=== PATIENT | male | born 1935 | race African-American/Black ===

== ENCOUNTER 2016-09-30 14:27 | Inpatient (IN) | payer MEDICARE, BC ==
[~2016-09-30] VITALS: Ht 181.6 cm; Wt 71.2 kg
[~2016-09-30 14:27] MED LIST: AMLO10TA4 PO; DULO30CA43 PO; LEVE500T56 PO; LISI1TAB5 PO; METF10002 PO; SITA100T PO; TAMS0.4C97 PO
[2016-09-30] MEDS ORDERED: FENTANYL PF 100 MCG/2 ML VIAL. IV ONE (15:30)
[2016-09-30] MEDS ORDERED: ONDANSETRON PF 4 MG/2 ML VIAL. IV ONE (15:30)
[2016-09-30] MEDS ORDERED: CEFTRIAXONE 1GM IVPB FOR OMNI 50 ML IV ONE (15:30)
[2016-09-30] MEDS ORDERED: IV NORMAL SALINE 1000ML BAG 1,000 ML IV ONE (15:30)
[2016-09-30 15:36] LABS: BASO % 1 % (0-3); EOS % 1 % (0-3); HEMATOCRIT 42.2 % (39.0-53.0); HEMOGLOBIN 13.5 g/dL (13.0-17.5); LYMPH # 2.8 x10^3/uL (1.0-4.8); LYMPH % 53 % (24-48); MEAN CORPUSCULAR HEMOGLOBIN 27 pg (25-35); MEAN CORPUSCULAR HGB CONC 32 g/dL (31-37); MEAN CORPUSCULAR VOLUME 83 fL (79-100); MONO % 8 % (0-9); NEUT % 38 % (31-73); PLATELET COUNT 274 x10^3/uL (140-400); RED BLOOD COUNT 5.07 x10^6/uL (4.30-5.70); RED CELL DISTRIBUTION WIDTH 15.4 % (11.5-14.5); WHITE BLOOD COUNT 5.3 x10^3/uL (4.0-11.0)
[2016-09-30 15:55] LABS: CALCIUM 9.3 mg/dL (8.5-10.1); CREATININE 1.2 mg/dL (0.7-1.3); GFR 70.1; POTASSIUM 4.2 mmol/L (3.5-5.1)
[2016-09-30 16:00] LABS: ALBUMIN 3.1 g/dL (3.4-5.0); ALBUMIN/GLOBULIN RATIO 0.6 (1.0-1.7); TOTAL BILIRUBIN 0.5 mg/dL (0.2-1.0); TOTAL PROTEIN 8.5 g/dL (6.4-8.2)
[2016-09-30 16:31] LABS: BILIRUBIN,URINE NEGATIVE (NEG); GLUCOSE,URINE 500 mg/dL (NEG); NITRITE,URINE NEGATIVE (NEG); PROTEIN,URINE NEGATIVE (NEG-TRACE); UROBILINOGEN,URINE 0.2 mg/dL (0.2 mg/dL)
--- NOTE | 2016-09-30 16:34 | RAD ---
CT of the abdomen and pelvis without contrast, 09/30/2016: History: Right flank pain Noncontrast scans were obtained through the urinary tract utilizing the renal stone protocol. No intrarenal calculi are identified. The renal collecting systems and ureters are not dilated. No ureteral calculus is seen. The partially filled urinary bladder is unremarkable. There is mild dependent atelectasis and/or scarring in the lung bases. The unopacified liver is unremarkable. No gallbladder abnormality is seen. The pancreas shows no abnormality. The spleen is of normal size. There is moderate calcific plaquing of the abdominal aorta and its branches without evidence of aneurysm. The prostate gland is enlarged measuring 5.8 cm in width. There are scattered colonic diverticula. No paracolonic inflammatory process is seen. The bowel loops are not dilated. A blind-ending tubular structure along the posterior aspect of the cecum and ascending colon appears to represent a dilated fluid-filled appendix. It measures 14 mm in width. On an old study from 01/07/2006 it measured 7 mm. No definite adjacent inflammation is seen. No free fluid or free air is evident in the abdomen or pelvis. The left inguinal ring is mildly dilated containing fat and the spermatic cord. No bowel herniation is evident. IMPRESSION: 1. No urinary tract calculi are identified. 2. Colonic diverticulosis. 3. Prostatic enlargement. 4. The appendix is mildly dilated and fluid-filled raising the possibility of early appendicitis. PQRS Compliance Statement: One or more of the following individualized dose reduction techniques were utilized for this examination: 1. Automated exposure control 2. Adjustment of the mA and/or kV according to patient size 3. Use of iterative reconstruction technique
[2016-09-30 16:46] LABS: BACTERIA,URINE FEW /HPF (0-FEW); RBC,URINE 0 /HPF (0-2); SQUAMOUS EPITHELIAL CELL,UR FEW /LPF; WBC,URINE OCC /HPF (0-4)
[2016-09-30] MEDS ORDERED: CIPR500T94 PO (17:02)
--- NOTE | 2016-09-30 17:02 | PHYS DOC ---
Past Medical History Past Medical History: Diabetes-Type II, Hypertension, Seizure Additional Past Medical Histor: stroke?, legally blind Past Surgical History: Other Additional Past Surgical Histo: bladder sx Alcohol Use: None Drug Use: None Adult General Chief Complaint Chief Complaint: ABDOMINAL PAIN HPI HPI 81-year-old male presents with a 2 day history of urinary frequency and right lower quadrant pain. He denies any high fever chills or sweats. He has not had any gross hematuria. states that he is up and down throughout the night urinating. Patient states his urine stream is not strong. [] Review of Systems Review of Systems Constitutional: Denies fever or chills [] Eyes: Denies change in visual acuity, redness, or eye pain [] HENT: Denies nasal congestion or sore throat [] Respiratory: Denies cough or shortness of breath [] Cardiovascular: No additional information not addressed in HPI [] GI: Denies abdominal pain, nausea, vomiting, bloody stools or diarrhea [] : Per history of present illness [] Musculoskeletal: Denies back pain or joint pain [] Integument: Denies rash or skin lesions [] Neurologic: Denies headache, focal weakness or sensory changes [] Endocrine: Denies polyuria or polydipsia [] Current Medications Current Medications Current Medications Medications (Trade) Dose Ordered Sig/Sofya Start Time Stop Time Status Last Admin Dose Admin Ceftriaxone Sodium 50 ml @ 100 mls/hr 1X ONCE 09/30/16 15:30 09/30/16 15:59 DC 09/30/16 16:28 100 MLS/HR Fentanyl Citrate (Fentanyl 2ml Vial) 50 mcg 1X ONCE 09/30/16 15:30 09/30/16 15:34 DC 09/30/16 15:47 50 MCG Ondansetron HCl (Zofran) 4 mg 1X ONCE 09/30/16 15:30 09/30/16 15:34 DC 09/30/16 15:45 4 MG Sodium Chloride (Iv Sodium Chloride 0.9% 1000ml Bag) 1,000 ml @ 1,000 mls/hr 1X ONCE 09/30/16 15:30 09/30/16 16:29 DC 09/30/16 15:43 1,000 MLS/HR Allergies Allergies Allergies Coded Allergies Type Severity Reaction Last Updated Verified No Known Drug Allergies 02/12/14 No Physical Exam Physical Exam Constitutional: Well developed, well nourished, no acute distress, non-toxic appearance. [] HENT: Normocephalic, atraumatic, bilateral external ears normal, oropharynx moist, no oral exudates, nose normal. [] Eyes: PERRLA, EOMI, conjunctiva normal, no discharge. [] Neck: Normal range of motion, no tenderness, supple, no stridor. [] Cardiovascular:Heart rate regular rhythm, no murmur [] Lungs & Thorax: Bilateral breath sounds clear to auscultation [] Abdomen: Bowel sounds normal, soft, no tenderness, no masses, no pulsatile masses. [] Skin: Warm, dry, no erythema, no rash. [] Back: No tenderness, no CVA tenderness. [] Extremities: No tenderness, no cyanosis, no clubbing, ROM intact, no edema. [] Neurologic: Alert and oriented X 3, normal motor function, normal sensory function, no focal deficits noted. [] Psychologic: Affect normal, judgement normal, mood normal. [] Current Patient Data Vital Signs Vital Signs Date Time Temp Pulse Resp B/P Pulse Ox O2 Delivery O2 Flow Rate FiO2 09/30/16 15:47 16 09/30/16 14:39 98.5 68 135/66 100 98.5 Lab Values Laboratory Tests Test 09/30/16 14:47 09/30/16 15:35 09/30/16 16:10 White Blood Count 5.3x10^3/uL (4.0-11.0) Red Blood Count 5.07x10^6/uL (4.30-5.70) Hemoglobin 13.5g/dL (13.0-17.5) Hematocrit 42.2% (39.0-53.0) Mean Corpuscular Volume 83fL (79-100) Mean Corpuscular Hemoglobin 27pg (25-35) Mean Corpuscular Hemoglobin Concent 32g/dL (31-37) Red Cell Distribution Width 15.4% (11.5-14.5) H Platelet Count 274x10^3/uL (140-400) Neutrophils (%) (Auto) 38% (31-73) Lymphocytes (%) (Auto) 53% (24-48) H Monocytes (%) (Auto) 8% (0-9) Eosinophils (%) (Auto) 1% (0-3) Basophils (%) (Auto) 1% (0-3) Neutrophils # (Auto) 2.0x10^3uL (1.8-7.7) Lymphocytes # (Auto) 2.8x10^3/uL (1.0-4.8) Monocytes # (Auto) 0.4x10^3/uL (0.0-1.1) Eosinophils # (Auto) 0.0x10^3/uL (0.0-0.7) Basophils # (Auto) 0.0x10^3/uL (0.0-0.2) Sodium Level 138mmol/L (136-145) Potassium Level 4.2mmol/L (3.5-5.1) Chloride Level 102mmol/L (98-107) Carbon Dioxide Level 28mmol/L (21-32) Anion Gap 8 (6-14) Blood Urea Nitrogen 19mg/dL (8-26) Creatinine 1.2mg/dL (0.7-1.3) Estimated GFR (Cockcroft-Gault) 70.1 BUN/Creatinine Ratio 16 (6-20) Glucose Level 188mg/dL (70-99) H Calcium Level 9.3mg/dL (8.5-10.1) Total Bilirubin 0.5mg/dL (0.2-1.0) Aspartate Amino Transferase (AST) 16U/L (15-37) Alanine Aminotransferase (ALT) 31U/L (16-63) Alkaline Phosphatase 79U/L (46-116) Total Protein 8.5g/dL (6.4-8.2) H Albumin 3.1g/dL (3.4-5.0) L Albumin/Globulin Ratio 0.6 (1.0-1.7) L Lipase 115U/L (73-393) Lactic Acid Level 1.7mmol/L (0.4-2.0) Urine Collection Type Unknown Urine Color Yellow Urine Clarity Clear Urine pH 6.0 Urine Specific [place] 1.020 Urine Protein Negativemg/dL (NEG-TRACE) Urine Glucose (UA) 500mg/dL (NEG) Urine Ketones (Stick) Negativemg/dL (NEG) Urine Blood Negative (NEG) Urine Nitrite Negative (NEG) Urine Bilirubin Negative (NEG) Urine Urobilinogen Dipstick 0.2mg/dL (0.2 mg/dL) Urine Leukocyte Esterase Negative (NEG) Urine RBC 0/HPF (0-2) Urine WBC Occ/HPF (0-4) Urine Squamous Epithelial Cells Few/LPF Urine Bacteria Few/HPF (0-FEW) Urine Mucus Mod/LPF Laboratory Tests 09/30/16 14:47 Laboratory Tests 09/30/16 14:47 EKG EKG [] Radiology/Procedures Radiology/Procedures [] Impressions: PROCEDURE: ABDOMEN PELVIS WO CONTRAST PQRS Compliance Statement: One or more of the following individualized dose reduction techniques were utilized for this examination: 1. Automated exposure control 2. Adjustment of the mA and/or kV according to patient size 3. Use of iterative reconstruction technique CT of the abdomen and pelvis without contrast, 09/30/2016: History: Left-sided pain, nausea and vomiting Multidetector CT imaging was performed without oral or IV contrast as requested. The gallbladder is surgically absent. The unopacified liver shows no abnormality. No pancreatic abnormality is detected. The spleen is of normal size. The kidneys show no evidence of obstruction or mass. No urinary tract calculi are identified. The partially filled urinary bladder is unremarkable. There is mild aortoiliac calcific plaquing. No abdominal or pelvic adenopathy is seen. The uterus is surgically absent. The bowel loops are not dilated. There are sutures along the base of the cecum suggesting a previous appendectomy. No free fluid or free air is evident in the abdomen or pelvis. IMPRESSION: No acute abdominal or pelvic abnormality is detected. Course & Med Decision Making Course & Med Decision Making Pertinent Labs and Imaging studies reviewed. (See chart for details) [] Dragon Disclaimer Dragon Disclaimer This electronic medical record was generated, in whole or in part, using a voice recognition dictation system. Departure Departure Impression: Primary Impression: Abdominal pain Additional Impression: Urinary frequency Disposition: 01 HOME, SELF-CARE Condition: STABLE Referrals: MARIA DEL CARMEN NICHOLAS (PCP) Patient Instructions: Urinary Frequency Additional Instructions: Need to follow with your family doctor this week for recheck. Return to the emergency department with any new or concerning symptoms Scripts Ciprofloxacin Hcl (Cipro)500 Mg Tablet1 Tab PO BID PRN UTI #20 TAB Prov:MALCOLM SMITH DO 09/30/16 Problem Qualifiers Primary Impression: Abdominal pain Abdominal location: right lower quadrant Qualified Code: R10.31 - Right lower quadrant pain MALCOLM SMITH DO Sep 30, 2016 17:02
[2016-09-30] MEDS ORDERED: TAMS0.4C97 PO (17:07)
[2016-09-30] MEDS: IV NORMAL SALINE 1000ML BAG 1,000 ML IV SCH (17:19)
[2016-09-30] MEDS ORDERED: FENTANYL PF 100 MCG/2 ML VIAL. IV PRN (17:30)
[2016-09-30] MEDS ORDERED: ACETAMINOPHEN 325 MG TABLET. PO PRN (17:30)
[2016-09-30] MEDS ORDERED: ONDANSETRON PF 4 MG/2 ML VIAL. IV PRN (17:30)
[2016-09-30 23:54] VITALS: BP 169/95
[2016-10-01] VITALS (8 sets, daily range): BP systolic 119–170; BP diastolic 63–89
[2016-10-01] MEDS: LEVETIRACETAM 500 MG TABLET PO SCH ×3 (00:07→20:06)
[2016-10-01] MEDS ORDERED: DEXTROSE 50% 25 GM / 50ML DISP.SYRIN. IV PRN (00:30)
[2016-10-01] MEDS ORDERED: INFLUENZA VAX SCREEN BY RX. MC ONE (01:15)
[2016-10-01 04:05] LABS: BASO % 0 % (0-3); EOS % 1 % (0-3); HEMATOCRIT 40.3 % (39.0-53.0); LYMPH # 5.4 x10^3/uL (1.0-4.8); LYMPH % 56 % (24-48); MEAN CORPUSCULAR HEMOGLOBIN 27 pg (25-35); MEAN CORPUSCULAR HGB CONC 32 g/dL (31-37); MEAN CORPUSCULAR VOLUME 83 fL (79-100); MONO % 8 % (0-9); NEUT % 35 % (31-73); PLATELET COUNT 270 x10^3/uL (140-400); RED BLOOD COUNT 4.85 x10^6/uL (4.30-5.70); RED CELL DISTRIBUTION WIDTH 15.3 % (11.5-14.5); WHITE BLOOD COUNT 9.6 x10^3/uL (4.0-11.0)
[2016-10-01 04:22] LABS: CALCIUM 9.1 mg/dL (8.5-10.1); CREATININE 0.9 mg/dL (0.7-1.3); GFR 97.8
[2016-10-01] MEDS: IV NORMAL SALINE 1000ML BAG 1,000 ML IV SCH ×2 (06:29→09:19)
[2016-10-01] MEDS: INSULIN ASPART 300 UNITS/3 ML INSULN.PEN SQ SCH ×3 (08:00→17:00)
[2016-10-01] MEDS: TAMSULOSIN 0.4 MG CAP.ER.24H. PO SCH (08:02)
[2016-10-01] MEDS: DULOXETINE HCL 30 MG CAPSULE.DR. PO SCH ×2 (08:02→20:06)
[2016-10-01] MEDS: LISINOPRIL 20 MG TABLET PO SCH (08:02)
[2016-10-01] MEDS: AMLODIPINE BESYLATE 10 MG TABLET PO SCH (08:02)
--- NOTE | 2016-10-01 08:28 | PDOC2 ---
SHERITA CHAUDHARI [employer] 10/01/16 0828: CONSULT Date of Consult Date of Consult DATE: 10/01/16 TIME: 08:23 Reason for Consult Reason for Consult: appendicitis Referring Physician Referring Physician: ER Identification/Chief Complaint Chief Complaint abdominal pain Source Source: Chart review, Patient History of Present Illness Reason for Visit: Reports 3 weeks trouble with RLQ pain. Edilson the pain was worse, he had increased urinary frequency. Currently no pain, no nausea or emesis. Pain was not aggravated by movement Past Medical History Cardiovascular: HTN, Syncope Pulmonary: No pertinent hx CENTRAL NERVOUS SYSTEM: CVA GI: No pertinent hx Heme/Onc: No pertinent hx Hepatobiliary: No pertinent hx Psych: No pertinent hx Musculoskeletal: Osteoarthritis Rheumatologic: No pertinent hx Infectious disease: No pertinent hx Renal/: Benign prostatic enlarg. Endocrine: Diabetes Past Surgical History Past Surgical History: Other (no abdominal surgeries ) Family History Family History: No Significant Social History No ALCOHOL: rare Drugs: None Lives: with Family Current Problem List Problem List Problems Medical Problems: (1) Abdominal pain Status: Acute (2) Urinary frequency Status: Acute Current Medications Current Medications Current Medications Ceftriaxone Sodium 50 ml @ 100 mls/hr 1X ONCE IV Last administered on 16:28; Start 09/30/16 at 15:30; Stop 09/30/16 at 15:59; Status DC Sodium Chloride (Iv Sodium Chloride 0.9% 1000ml Bag) 1,000 ml @ 1,000 mls/hr 1X ONCE IV Last administered on 09/30/16 15:43; Start 09/30/16 at 15:30; Stop 09/30/16 at 16:29; Status DC Fentanyl Citrate (Fentanyl 2ml Vial) 50 mcg 1X ONCE IV Last administered on 15:47; Start 09/30/16 at 15:30; Stop 09/30/16 at 15:34; Status DC Ondansetron HCl (Zofran) 4 mg 1X ONCE IV Last administered on 09/30/16 15:45 ; Start 09/30/16 at 15:30; Stop 09/30/16 at 15:34; Status DC Ondansetron HCl (Zofran) 4 mg PRN Q8HRS PRN IV NAUSEA/VOMITING; Start 09/30/16 at 17:30; Stop 10/01/16 at 17:29 Fentanyl Citrate 50 mcg 50 mcg PRN Q1HR PRN IV PAIN; Start 09/30/16 at 17:30; Stop 10/01/16 at 17:29 Sodium Chloride (Iv Sodium Chloride 0.9% 1000ml Bag) 1,000 ml @ 125 mls/hr Q8H IV Last administered on 10/01/16 06:29; Start 09/30/16 at 17:19; Stop at 17:18 Acetaminophen (Tylenol) 650 mg PRN Q4HRS PRN PO FEVER; Start 09/30/16 at 17:30 ; Stop 10/01/16 at 17:29 Amlodipine Besylate (Norvasc) 10 mg DAILY PO Last administered on 10/01/16 08: 02; Start 10/01/16 at 09:00 Duloxetine HCl (Cymbalta) 30 mg BID PO Last administered on 10/01/16 08:02; Start 10/01/16 at 09:00 Levetiracetam (Keppra) 500 mg BID PO Last administered on 10/01/16 08:02; Start 10/01/16 at 00:30 Tamsulosin HCl (Flomax) 0.4 mg DAILY PO Last administered on 10/01/16 08:02; Start 10/01/16 at 09:00 Lisinopril (Prinivil) 20 mg DAILY PO Last administered on 10/01/16 08:02; Start 10/01/16 at 09:00 Insulin Aspart (Novolog) 0-5 UNITS TIDWMEALS SQ ; Start 10/01/16 at 08:00 Dextrose 12.5 gm PRN Q15MIN PRN IV SEE COMMENTS; Start 10/01/16 at 00:30 Info (Do NOT chart on this placeholder) 1 each 1X ONCE MC ; Start 10/01/16 at 01:15; Stop 10/01/16 at 01:16; Status UNV Pneumococcal Polyvalent Vaccine (Do NOT chart on this placeholder) 1 each 1X ONCE MC ; Start 10/01/16 at 09:00; Stop 10/01/16 at 09:01; Status UNV Influenza Virus Vaccine Quadrival (Fluarix Quad [id number] Syringe) 0.5 ml ONCE ONCE VAX IM ; Start 10/01/16 at 09:00; Stop 10/01/16 at 09:01 Pneumococcal Polyvalent Vaccine (Pneumovax 23) 0.5 ml ONCE ONCE VAX IM ; Start 10/01/16 at 09:00; Stop 10/01/16 at 09:01 Active Scripts Active Flomax (Tamsulosin Hcl) 0.4 Mg Cap.er.24h 1 Cap PO DAILY Cipro (Ciprofloxacin Hcl) 500 Mg Tablet 1 Tab PO BID PRN Reported Keppra (Levetiracetam) 500 Mg Tablet 1 Tab PO BID Duloxetine Hcl 30 Mg Capsule.dr 30 Mg PO BID Metformin Hcl 1,000 Mg Tablet 1 Tab PO BID Lisinopril-Hctz 20-12.5 Mg Tab (Lisinopril/Hydrochlorothiazide) 1 Each Tablet 1 Tab PO DAILY Norvasc (Amlodipine Besylate) 10 Mg Tablet 10 Mg PO DAILY Flomax (Tamsulosin Hcl) 0.4 Mg Cap.er.24h 1 Cap PO DAILY Januvia (Sitagliptin Phosphate) 100 Mg Tablet 1 Tab PO DAILY Allergies Allergies: Coded Allergies: No Known Drug Allergies (Unverified , 02/12/14) ROS General: No: Chills, Other (fevers) PSYCHOLOGICAL ROS: No: Anxiety, Depression Eyes: No Blurry vision, No Double vision HEENT: No: Heacaches, Sore Throat Hematological and Lymphatic: No: Bleeding Problems, Blood Clots Respiratory: No: Cough, Shortness of breath Cardiovascular: No Chest Pain, No Palpitations Gastrointestinal: Yes Other (see hpi) Genitourinary: YES Frequency, No Hematuria Musculoskeletal: No Joint Pain, No Muscle Pain Skin: No Pruritus, No Rash Physical Exam General: Alert, Oriented X3, Cooperative, No acute distress HEENT: Atraumatic, Mucous membr. moist/pink Lungs: Clear to auscultation, Normal air movement Heart: Regular rate, Normal S1, Normal S2, No murmurs Abdomen: Normal bowel sounds, Soft, No tenderness, No hepatosplenomegaly Extremities: No clubbing, No cyanosis Skin: No rashes, No breakdown Neuro: Normal speech, Sensation intact Psych/Mental Status: Mental status NL, Mood NL MUSCULOSKELETAL: No deformity, No swelling Vitals VITALS Vital Signs Date Time Temp Pulse Resp B/P Pulse Ox O2 Delivery O2 Flow Rate FiO2 10/01/16 08:02 66 134/78 10/01/16 07:00 98.6 18 99 Room Air 98.6 Labs Labs Laboratory Tests Test 09/30/16 14:47 09/30/16 15:35 09/30/16 16:10 10/01/16 03:40 White Blood Count 5.3x10^3/uL (4.0-11.0) 9.6x10^3/uL (4.0-11.0) Red Blood Count 5.07x10^6/uL (4.30-5.70) 4.85x10^6/uL (4.30-5.70) Hemoglobin 13.5g/dL (13.0-17.5) 13.0g/dL (13.0-17.5) Hematocrit 42.2% (39.0-53.0) 40.3% (39.0-53.0) Mean Corpuscular Volume 83fL (79-100) 83fL (79-100) Mean Corpuscular Hemoglobin 27pg (25-35) 27pg (25-35) Mean Corpuscular Hemoglobin Concent 32g/dL (31-37) 32g/dL (31-37) Red Cell Distribution Width 15.4% (11.5-14.5) 15.3% (11.5-14.5) Platelet Count 274x10^3/uL (140-400) 270x10^3/uL (140-400) Neutrophils (%) (Auto) 38% (31-73) 35% (31-73) Lymphocytes (%) (Auto) 53% (24-48) 56% (24-48) Monocytes (%) (Auto) 8% (0-9) 8% (0-9) Eosinophils (%) (Auto) 1% (0-3) 1% (0-3) Basophils (%) (Auto) 1% (0-3) 0% (0-3) Neutrophils # (Auto) 2.0x10^3uL (1.8-7.7) 3.3x10^3uL (1.8-7.7) Lymphocytes # (Auto) 2.8x10^3/uL (1.0-4.8) 5.4x10^3/uL (1.0-4.8) Monocytes # (Auto) 0.4x10^3/uL (0.0-1.1) 0.8x10^3/uL (0.0-1.1) Eosinophils # (Auto) 0.0x10^3/uL (0.0-0.7) 0.0x10^3/uL (0.0-0.7) Basophils # (Auto) 0.0x10^3/uL (0.0-0.2) 0.0x10^3/uL (0.0-0.2) Sodium Level 138mmol/L (136-145) 139mmol/L (136-145) Potassium Level 4.2mmol/L (3.5-5.1) 4.0mmol/L (3.5-5.1) Chloride Level 102mmol/L (98-107) 104mmol/L (98-107) Carbon Dioxide Level 28mmol/L (21-32) 26mmol/L (21-32) Anion Gap 8 (6-14) 9 (6-14) Blood Urea Nitrogen 19mg/dL (8-26) 12mg/dL (8-26) Creatinine 1.2mg/dL (0.7-1.3) 0.9mg/dL (0.7-1.3) Estimated GFR (Cockcroft-Gault) 70.1 97.8 BUN/Creatinine Ratio 16 (6-20) Glucose Level 188mg/dL (70-99) 106mg/dL (70-99) Calcium Level 9.3mg/dL (8.5-10.1) 9.1mg/dL (8.5-10.1) Total Bilirubin 0.5mg/dL (0.2-1.0) Aspartate Amino Transf (AST/SGOT) 16U/L (15-37) Alanine Aminotransferase (ALT/SGPT) 31U/L (16-63) Alkaline Phosphatase 79U/L (46-116) Total Protein 8.5g/dL (6.4-8.2) Albumin 3.1g/dL (3.4-5.0) Albumin/Globulin Ratio 0.6 (1.0-1.7) Lipase 115U/L (73-393) Lactic Acid Level 1.7mmol/L (0.4-2.0) Urine Collection Type Unknown Urine Color Yellow Urine Clarity Clear Urine pH 6.0 Urine Specific [place] 1.020 Urine Protein Negativemg/dL (NEG-TRACE) Urine Glucose (UA) 500mg/dL (NEG) Urine Ketones (Stick) Negativemg/dL (NEG) Urine Blood Negative (NEG) Urine Nitrite Negative (NEG) Urine Bilirubin Negative (NEG) Urine Urobilinogen Dipstick 0.2mg/dL (0.2 mg/dL) Urine Leukocyte Esterase Negative (NEG) Urine RBC 0/HPF (0-2) Urine WBC Occ/HPF (0-4) Urine Squamous Epithelial Cells Few/LPF Urine Bacteria Few/HPF (0-FEW) Urine Mucus Mod/LPF Laboratory Tests Test 09/30/16 14:47 09/30/16 15:35 09/30/16 16:10 10/01/16 03:40 White Blood Count 5.3x10^3/uL (4.0-11.0) 9.6x10^3/uL (4.0-11.0) Red Blood Count 5.07x10^6/uL (4.30-5.70) 4.85x10^6/uL (4.30-5.70) Hemoglobin 13.5g/dL (13.0-17.5) 13.0g/dL (13.0-17.5) Hematocrit 42.2% (39.0-53.0) 40.3% (39.0-53.0) Mean Corpuscular Volume 83fL (79-100) 83fL (79-100) Mean Corpuscular Hemoglobin 27pg (25-35) 27pg (25-35) Mean Corpuscular Hemoglobin Concent 32g/dL (31-37) 32g/dL (31-37) Red Cell Distribution Width 15.4% (11.5-14.5) 15.3% (11.5-14.5) Platelet Count 274x10^3/uL (140-400) 270x10^3/uL (140-400) Neutrophils (%) (Auto) 38% (31-73) 35% (31-73) Lymphocytes (%) (Auto) 53% (24-48) 56% (24-48) Monocytes (%) (Auto) 8% (0-9) 8% (0-9) Eosinophils (%) (Auto) 1% (0-3) 1% (0-3) Basophils (%) (Auto) 1% (0-3) 0% (0-3) Neutrophils # (Auto) 2.0x10^3uL (1.8-7.7) 3.3x10^3uL (1.8-7.7) Lymphocytes # (Auto) 2.8x10^3/uL (1.0-4.8) 5.4x10^3/uL (1.0-4.8) Monocytes # (Auto) 0.4x10^3/uL (0.0-1.1) 0.8x10^3/uL (0.0-1.1) Eosinophils # (Auto) 0.0x10^3/uL (0.0-0.7) 0.0x10^3/uL (0.0-0.7) Basophils # (Auto) 0.0x10^3/uL (0.0-0.2) 0.0x10^3/uL (0.0-0.2) Sodium Level 138mmol/L (136-145) 139mmol/L (136-145) Potassium Level 4.2mmol/L (3.5-5.1) 4.0mmol/L (3.5-5.1) Chloride Level 102mmol/L (98-107) 104mmol/L (98-107) Carbon Dioxide Level 28mmol/L (21-32) 26mmol/L (21-32) Anion Gap 8 (6-14) 9 (6-14) Blood Urea Nitrogen 19mg/dL (8-26) 12mg/dL (8-26) Creatinine 1.2mg/dL (0.7-1.3) 0.9mg/dL (0.7-1.3) Estimated GFR (Cockcroft-Gault) 70.1 97.8 BUN/Creatinine Ratio 16 (6-20) Glucose Level 188mg/dL (70-99) 106mg/dL (70-99) Calcium Level 9.3mg/dL (8.5-10.1) 9.1mg/dL (8.5-10.1) Total Bilirubin 0.5mg/dL (0.2-1.0) Aspartate Amino Transf (AST/SGOT) 16U/L (15-37) Alanine Aminotransferase (ALT/SGPT) 31U/L (16-63) Alkaline Phosphatase 79U/L (46-116) Total Protein 8.5g/dL (6.4-8.2) Albumin 3.1g/dL (3.4-5.0) Albumin/Globulin Ratio 0.6 (1.0-1.7) Lipase 115U/L (73-393) Lactic Acid Level 1.7mmol/L (0.4-2.0) Urine Collection Type Unknown Urine Color Yellow Urine Clarity Clear Urine pH 6.0 Urine Specific [place] 1.020 Urine Protein Negativemg/dL (NEG-TRACE) Urine Glucose (UA) 500mg/dL (NEG) Urine Ketones (Stick) Negativemg/dL (NEG) Urine Blood Negative (NEG) Urine Nitrite Negative (NEG) Urine Bilirubin Negative (NEG) Urine Urobilinogen Dipstick 0.2mg/dL (0.2 mg/dL) Urine Leukocyte Esterase Negative (NEG) Urine RBC 0/HPF (0-2) Urine WBC Occ/HPF (0-4) Urine Squamous Epithelial Cells Few/LPF Urine Bacteria Few/HPF (0-FEW) Urine Mucus Mod/LPF Assessment/Plan Assessment/Plan abdominal pain, urinary frequency wbc normal, afebrile, now without pain DM, HTN possible early appendicitis on CT will continue observation, NPO will review with JD Laurent MD 10/01/16 1340: CONSULT Allergies Allergies: Coded Allergies: No Known Drug Allergies (Unverified , 02/12/14) Assessment/Plan Assessment/Plan Pt seen and examined. Agree with Joelle Chaudhari's note D/w pt and pt's Pt with mild TTP RLQ given persistence of symptoms, will proceed with lap exp and appendectomy Pt and pt's elect for surgery R?B/A d/w pt and pt's Thanks for consult! SHERITA CHAUDHARI [employer] [employer] Oct 01, 2016 08:28 JD HESTER MD Oct 01, 2016 13:40
[2016-10-01] MEDS ORDERED: ONDANSETRON PF 4 MG/2 ML VIAL. IV PRN ×2 (08:44→15:30)
[2016-10-01] MEDS ORDERED: FLU VACC QUAD 2016-17 (36MOS+)/PF 0.5 ML SYRINGE. VAX IM ONE (09:00)
[2016-10-01] MEDS ORDERED: PNEUMOCOCCAL VAX SCREEN BY RX. MC ONE (09:00)
[2016-10-01] MEDS ORDERED: PNEUMOC CONJ VACC 23-VALENT 0.5 ML VIAL. VAX IM ONE (09:00)
--- NOTE | 2016-10-01 10:04 | HP ---
ADMIT DATE: CHIEF COMPLAINT: Right lower quadrant abdominal pain. 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 Initially had thought that this had something to do with his bladder because recently he has noted increased nocturia. However, in the Emergency Room, CT was consistent with appendicitis by CT, showing a dilated fluid-filled appendix. The patient is therefore admitted for surgical evaluation. PAST MEDICAL HISTORY: Hypertension, diabetes, history of syncope with workup by Cardiology in 03/2016 without any significant findings and seizures. FAMILY HISTORY: No known heart history. 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 No other toxic habits. ALLERGIES: No known drug allergies. MEDICATIONS: MAR reconciled with home medications. REVIEW OF SYSTEMS: Essentially positive as per HPI. PHYSICAL EXAMINATION: VITAL SIGNS: From today show a blood pressure of 140/71, heart rate of 60, respiratory rate at 16. He is afebrile. GENERAL: This is a well-nourished, well developed 81-year-old -[place] gentleman appearing younger than his stated age, alert and oriented, in no acute distress. HEENT: Shows no scleral icterus. NECK: Supple. LUNGS: Clear bilaterally. HEART: Regular rate and rhythm. ABDOMEN: Has positive bowel sounds. No tenderness to palpation noted throughout. No rebound. EXTREMITIES: Show no edema. SKIN: Warm, soft and dry. LABORATORY DATA: CBC with a WBC of 5.3, hemoglobin 13.5, platelets of 274. Chemistries with a BUN and creatinine of 19 and 1.2. Electrolytes within normal. Albumin at 3.1, normal LFTs. CT of the abdomen shows fluid-filled appendix. There is also a left inguinal hernia containing fat and the spermatic cord, BPH noted. ASSESSMENT AND PLAN: The patient is an 81-year-old gentleman with apparent acute appendicitis. Surgical consult has been obtained. We will keep him n.p.o. for anticipated surgery in the a.m. From a medical standpoint, he appears to be in excellent health, had negative cardiac workup within the past 6 months. Does have a history of seizures. We will continue the Keppra for now. Does have hypertension, currently well controlled. We will continue amlodipine as well as lisinopril. For diabetes, he is typically on Januvia as well as metformin. We will hold both medications, initiated insulin sliding scale while he is n.p.o. He does have a known history of BPH. I suspect that his nocturia symptoms are actually more related to be BPH. This may require evaluation by a urologist, which certainly can be obtained on an outpatient basis. RYLEE SEWELL MD DR: ADAMA/nts JOB#: [id number] / [id number] MARIA DEL CARMEN Kauffman Dr. MTDD
[2016-10-01 10:53] LABS: PLT ESTIMATE ADEQUATE (ADEQUATE)
[2016-10-01 10:54] LABS: ANISOCYTOSIS SLIGHT
--- NOTE | 2016-10-01 10:56 | PDOC ---
PROGRESS NOTES Chief Complaint Chief Complaint pOssibly early APPY History of Present Illness History of Present Illness NO abd pain LAbs reviewed- ok CT reviewed - poss early appy PLAN: Await GS If no sx plans, reg diet today then home later clifford RN Vitals Vitals Vital Signs Date Time Temp Pulse Resp B/P Pulse Ox O2 Delivery O2 Flow Rate FiO2 10/01/16 08:02 66 134/78 10/01/16 08:00 Room Air 10/01/16 07:00 98.6 18 99 98.6 Physical Exam General: Alert, Oriented X3, Cooperative, No acute distress Heart: Regular rate, Normal S1, Normal S2, No murmurs Lungs: Clear Abdomen: Normal bowel sounds, Soft, No tenderness, No hepatosplenomegaly Extremities: No clubbing, No cyanosis Skin: No rashes, No breakdown Labs LABS Laboratory Tests Test 09/30/16 14:47 09/30/16 15:35 09/30/16 16:10 10/01/16 03:40 White Blood Count 5.3x10^3/uL (4.0-11.0) 9.6x10^3/uL (4.0-11.0) Red Blood Count 5.07x10^6/uL (4.30-5.70) 4.85x10^6/uL (4.30-5.70) Hemoglobin 13.5g/dL (13.0-17.5) 13.0g/dL (13.0-17.5) Hematocrit 42.2% (39.0-53.0) 40.3% (39.0-53.0) Mean Corpuscular Volume 83fL (79-100) 83fL (79-100) Mean Corpuscular Hemoglobin 27pg (25-35) 27pg (25-35) Mean Corpuscular Hemoglobin Concent 32g/dL (31-37) 32g/dL (31-37) Red Cell Distribution Width 15.4% (11.5-14.5) 15.3% (11.5-14.5) Platelet Count 274x10^3/uL (140-400) 270x10^3/uL (140-400) Neutrophils (%) (Auto) 38% (31-73) 35% (31-73) Lymphocytes (%) (Auto) 53% (24-48) 56% (24-48) Monocytes (%) (Auto) 8% (0-9) 8% (0-9) Eosinophils (%) (Auto) 1% (0-3) 1% (0-3) Basophils (%) (Auto) 1% (0-3) 0% (0-3) Neutrophils # (Auto) 2.0x10^3uL (1.8-7.7) 3.3x10^3uL (1.8-7.7) Lymphocytes # (Auto) 2.8x10^3/uL (1.0-4.8) 5.4x10^3/uL (1.0-4.8) Monocytes # (Auto) 0.4x10^3/uL (0.0-1.1) 0.8x10^3/uL (0.0-1.1) Eosinophils # (Auto) 0.0x10^3/uL (0.0-0.7) 0.0x10^3/uL (0.0-0.7) Basophils # (Auto) 0.0x10^3/uL (0.0-0.2) 0.0x10^3/uL (0.0-0.2) Sodium Level 138mmol/L (136-145) 139mmol/L (136-145) Potassium Level 4.2mmol/L (3.5-5.1) 4.0mmol/L (3.5-5.1) Chloride Level 102mmol/L (98-107) 104mmol/L (98-107) Carbon Dioxide Level 28mmol/L (21-32) 26mmol/L (21-32) Anion Gap 8 (6-14) 9 (6-14) Blood Urea Nitrogen 19mg/dL (8-26) 12mg/dL (8-26) Creatinine 1.2mg/dL (0.7-1.3) 0.9mg/dL (0.7-1.3) Estimated GFR (Cockcroft-Gault) 70.1 97.8 BUN/Creatinine Ratio 16 (6-20) Glucose Level 188mg/dL (70-99) 106mg/dL (70-99) Calcium Level 9.3mg/dL (8.5-10.1) 9.1mg/dL (8.5-10.1) Total Bilirubin 0.5mg/dL (0.2-1.0) Aspartate Amino Transf (AST/SGOT) 16U/L (15-37) Alanine Aminotransferase (ALT/SGPT) 31U/L (16-63) Alkaline Phosphatase 79U/L (46-116) Total Protein 8.5g/dL (6.4-8.2) Albumin 3.1g/dL (3.4-5.0) Albumin/Globulin Ratio 0.6 (1.0-1.7) Lipase 115U/L (73-393) Lactic Acid Level 1.7mmol/L (0.4-2.0) Urine Collection Type Unknown Urine Color Yellow Urine Clarity Clear Urine pH 6.0 Urine Specific [place] 1.020 Urine Protein Negativemg/dL (NEG-TRACE) Urine Glucose (UA) 500mg/dL (NEG) Urine Ketones (Stick) Negativemg/dL (NEG) Urine Blood Negative (NEG) Urine Nitrite Negative (NEG) Urine Bilirubin Negative (NEG) Urine Urobilinogen Dipstick 0.2mg/dL (0.2 mg/dL) Urine Leukocyte Esterase Negative (NEG) Urine RBC 0/HPF (0-2) Urine WBC Occ/HPF (0-4) Urine Squamous Epithelial Cells Few/LPF Urine Bacteria Few/HPF (0-FEW) Urine Mucus Mod/LPF Segmented Neutrophils % 27% (35-66) Band Neutrophils % 1% (0-9) Lymphocytes % 66% (24-48) Atypical Lymphocytes % (Manual) 3% (0-0) Monocytes % 3% (0-10) Platelet Estimate Adequate (ADEQUATE) Large Platelets Present Anisocytosis Slight Review of Systems Review of Systems neg 14 pt Assessment and Plan Assessmemt and Plan Problems Medical Problems: (1) Abdominal pain Status: Acute (2) Urinary frequency Status: Acute Problems: Comment Review of Relevant I have reviewed the following items maira (where applicable) has been applied. Labs Laboratory Tests Test 09/30/16 14:47 09/30/16 15:35 09/30/16 16:10 10/01/16 03:40 White Blood Count 5.3x10^3/uL (4.0-11.0) 9.6x10^3/uL (4.0-11.0) Red Blood Count 5.07x10^6/uL (4.30-5.70) 4.85x10^6/uL (4.30-5.70) Hemoglobin 13.5g/dL (13.0-17.5) 13.0g/dL (13.0-17.5) Hematocrit 42.2% (39.0-53.0) 40.3% (39.0-53.0) Mean Corpuscular Volume 83fL (79-100) 83fL (79-100) Mean Corpuscular Hemoglobin 27pg (25-35) 27pg (25-35) Mean Corpuscular Hemoglobin Concent 32g/dL (31-37) 32g/dL (31-37) Red Cell Distribution Width 15.4% (11.5-14.5) 15.3% (11.5-14.5) Platelet Count 274x10^3/uL (140-400) 270x10^3/uL (140-400) Neutrophils (%) (Auto) 38% (31-73) 35% (31-73) Lymphocytes (%) (Auto) 53% (24-48) 56% (24-48) Monocytes (%) (Auto) 8% (0-9) 8% (0-9) Eosinophils (%) (Auto) 1% (0-3) 1% (0-3) Basophils (%) (Auto) 1% (0-3) 0% (0-3) Neutrophils # (Auto) 2.0x10^3uL (1.8-7.7) 3.3x10^3uL (1.8-7.7) Lymphocytes # (Auto) 2.8x10^3/uL (1.0-4.8) 5.4x10^3/uL (1.0-4.8) Monocytes # (Auto) 0.4x10^3/uL (0.0-1.1) 0.8x10^3/uL (0.0-1.1) Eosinophils # (Auto) 0.0x10^3/uL (0.0-0.7) 0.0x10^3/uL (0.0-0.7) Basophils # (Auto) 0.0x10^3/uL (0.0-0.2) 0.0x10^3/uL (0.0-0.2) Sodium Level 138mmol/L (136-145) 139mmol/L (136-145) Potassium Level 4.2mmol/L (3.5-5.1) 4.0mmol/L (3.5-5.1) Chloride Level 102mmol/L (98-107) 104mmol/L (98-107) Carbon Dioxide Level 28mmol/L (21-32) 26mmol/L (21-32) Anion Gap 8 (6-14) 9 (6-14) Blood Urea Nitrogen 19mg/dL (8-26) 12mg/dL (8-26) Creatinine 1.2mg/dL (0.7-1.3) 0.9mg/dL (0.7-1.3) Estimated GFR (Cockcroft-Gault) 70.1 97.8 BUN/Creatinine Ratio 16 (6-20) Glucose Level 188mg/dL (70-99) 106mg/dL (70-99) Calcium Level 9.3mg/dL (8.5-10.1) 9.1mg/dL (8.5-10.1) Total Bilirubin 0.5mg/dL (0.2-1.0) Aspartate Amino Transf (AST/SGOT) 16U/L (15-37) Alanine Aminotransferase (ALT/SGPT) 31U/L (16-63) Alkaline Phosphatase 79U/L (46-116) Total Protein 8.5g/dL (6.4-8.2) Albumin 3.1g/dL (3.4-5.0) Albumin/Globulin Ratio 0.6 (1.0-1.7) Lipase 115U/L (73-393) Lactic Acid Level 1.7mmol/L (0.4-2.0) Urine Collection Type Unknown Urine Color Yellow Urine Clarity Clear Urine pH 6.0 Urine Specific [place] 1.020 Urine Protein Negativemg/dL (NEG-TRACE) Urine Glucose (UA) 500mg/dL (NEG) Urine Ketones (Stick) Negativemg/dL (NEG) Urine Blood Negative (NEG) Urine Nitrite Negative (NEG) Urine Bilirubin Negative (NEG) Urine Urobilinogen Dipstick 0.2mg/dL (0.2 mg/dL) Urine Leukocyte Esterase Negative (NEG) Urine RBC 0/HPF (0-2) Urine WBC Occ/HPF (0-4) Urine Squamous Epithelial Cells Few/LPF Urine Bacteria Few/HPF (0-FEW) Urine Mucus Mod/LPF Segmented Neutrophils % 27% (35-66) Band Neutrophils % 1% (0-9) Lymphocytes % 66% (24-48) Atypical Lymphocytes % (Manual) 3% (0-0) Monocytes % 3% (0-10) Platelet Estimate Adequate (ADEQUATE) Large Platelets Present Anisocytosis Slight Laboratory Tests Test 09/30/16 14:47 09/30/16 15:35 09/30/16 16:10 10/01/16 03:40 White Blood Count 5.3x10^3/uL (4.0-11.0) 9.6x10^3/uL (4.0-11.0) Red Blood Count 5.07x10^6/uL (4.30-5.70) 4.85x10^6/uL (4.30-5.70) Hemoglobin 13.5g/dL (13.0-17.5) 13.0g/dL (13.0-17.5) Hematocrit 42.2% (39.0-53.0) 40.3% (39.0-53.0) Mean Corpuscular Volume 83fL (79-100) 83fL (79-100) Mean Corpuscular Hemoglobin 27pg (25-35) 27pg (25-35) Mean Corpuscular Hemoglobin Concent 32g/dL (31-37) 32g/dL (31-37) Red Cell Distribution Width 15.4% (11.5-14.5) 15.3% (11.5-14.5) Platelet Count 274x10^3/uL (140-400) 270x10^3/uL (140-400) Neutrophils (%) (Auto) 38% (31-73) 35% (31-73) Lymphocytes (%) (Auto) 53% (24-48) 56% (24-48) Monocytes (%) (Auto) 8% (0-9) 8% (0-9) Eosinophils (%) (Auto) 1% (0-3) 1% (0-3) Basophils (%) (Auto) 1% (0-3) 0% (0-3) Neutrophils # (Auto) 2.0x10^3uL (1.8-7.7) 3.3x10^3uL (1.8-7.7) Lymphocytes # (Auto) 2.8x10^3/uL (1.0-4.8) 5.4x10^3/uL (1.0-4.8) Monocytes # (Auto) 0.4x10^3/uL (0.0-1.1) 0.8x10^3/uL (0.0-1.1) Eosinophils # (Auto) 0.0x10^3/uL (0.0-0.7) 0.0x10^3/uL (0.0-0.7) Basophils # (Auto) 0.0x10^3/uL (0.0-0.2) 0.0x10^3/uL (0.0-0.2) Sodium Level 138mmol/L (136-145) 139mmol/L (136-145) Potassium Level 4.2mmol/L (3.5-5.1) 4.0mmol/L (3.5-5.1) Chloride Level 102mmol/L (98-107) 104mmol/L (98-107) Carbon Dioxide Level 28mmol/L (21-32) 26mmol/L (21-32) Anion Gap 8 (6-14) 9 (6-14) Blood Urea Nitrogen 19mg/dL (8-26) 12mg/dL (8-26) Creatinine 1.2mg/dL (0.7-1.3) 0.9mg/dL (0.7-1.3) Estimated GFR (Cockcroft-Gault) 70.1 97.8 BUN/Creatinine Ratio 16 (6-20) Glucose Level 188mg/dL (70-99) 106mg/dL (70-99) Calcium Level 9.3mg/dL (8.5-10.1) 9.1mg/dL (8.5-10.1) Total Bilirubin 0.5mg/dL (0.2-1.0) Aspartate Amino Transf (AST/SGOT) 16U/L (15-37) Alanine Aminotransferase (ALT/SGPT) 31U/L (16-63) Alkaline Phosphatase 79U/L (46-116) Total Protein 8.5g/dL (6.4-8.2) Albumin 3.1g/dL (3.4-5.0) Albumin/Globulin Ratio 0.6 (1.0-1.7) Lipase 115U/L (73-393) Lactic Acid Level 1.7mmol/L (0.4-2.0) Urine Collection Type Unknown Urine Color Yellow Urine Clarity Clear Urine pH 6.0 Urine Specific [place] 1.020 Urine Protein Negativemg/dL (NEG-TRACE) Urine Glucose (UA) 500mg/dL (NEG) Urine Ketones (Stick) Negativemg/dL (NEG) Urine Blood Negative (NEG) Urine Nitrite Negative (NEG) Urine Bilirubin Negative (NEG) Urine Urobilinogen Dipstick 0.2mg/dL (0.2 mg/dL) Urine Leukocyte Esterase Negative (NEG) Urine RBC 0/HPF (0-2) Urine WBC Occ/HPF (0-4) Urine Squamous Epithelial Cells Few/LPF Urine Bacteria Few/HPF (0-FEW) Urine Mucus Mod/LPF Segmented Neutrophils % 27% (35-66) Band Neutrophils % 1% (0-9) Lymphocytes % 66% (24-48) Atypical Lymphocytes % (Manual) 3% (0-0) Monocytes % 3% (0-10) Platelet Estimate Adequate (ADEQUATE) Large Platelets Present Anisocytosis Slight Medications Current Medications Ceftriaxone Sodium 50 ml @ 100 mls/hr 1X ONCE IV Last administered on 16:28; Start 09/30/16 at 15:30; Stop 09/30/16 at 15:59; Status DC Sodium Chloride (Iv Sodium Chloride 0.9% 1000ml Bag) 1,000 ml @ 1,000 mls/hr 1X ONCE IV Last administered on 09/30/16 15:43; Start 09/30/16 at 15:30; Stop 09/30/16 at 16:29; Status DC Fentanyl Citrate (Fentanyl 2ml Vial) 50 mcg 1X ONCE IV Last administered on 15:47; Start 09/30/16 at 15:30; Stop 09/30/16 at 15:34; Status DC Ondansetron HCl (Zofran) 4 mg 1X ONCE IV Last administered on 09/30/16 15:45 ; Start 09/30/16 at 15:30; Stop 09/30/16 at 15:34; Status DC Ondansetron HCl (Zofran) 4 mg PRN Q8HRS PRN IV NAUSEA/VOMITING; Start 09/30/16 at 17:30; Stop 10/01/16 at 08:45; Status DC Fentanyl Citrate 50 mcg 50 mcg PRN Q1HR PRN IV PAIN; Start 09/30/16 at 17:30; Stop 10/01/16 at 17:29 Sodium Chloride (Iv Sodium Chloride 0.9% 1000ml Bag) 1,000 ml @ 125 mls/hr Q8H IV Last administered on 10/01/16 06:29; Start 09/30/16 at 17:19; Stop at 17:18 Acetaminophen (Tylenol) 650 mg PRN Q4HRS PRN PO FEVER; Start 09/30/16 at 17:30 ; Stop 10/01/16 at 17:29 Amlodipine Besylate (Norvasc) 10 mg DAILY PO Last administered on 10/01/16 08: 02; Start 10/01/16 at 09:00 Duloxetine HCl (Cymbalta) 30 mg BID PO Last administered on 10/01/16 08:02; Start 10/01/16 at 09:00 Levetiracetam (Keppra) 500 mg BID PO Last administered on 10/01/16 08:02; Start 10/01/16 at 00:30 Tamsulosin HCl (Flomax) 0.4 mg DAILY PO Last administered on 10/01/16 08:02; Start 10/01/16 at 09:00 Lisinopril (Prinivil) 20 mg DAILY PO Last administered on 10/01/16 08:02; Start 10/01/16 at 09:00 Insulin Aspart (Novolog) 0-5 UNITS TIDWMEALS SQ ; Start 10/01/16 at 08:00 Dextrose 12.5 gm PRN Q15MIN PRN IV SEE COMMENTS; Start 10/01/16 at 00:30 Info (Do NOT chart on this placeholder) 1 each 1X ONCE MC ; Start 10/01/16 at 01:15; Stop 10/01/16 at 01:16; Status UNV Pneumococcal Polyvalent Vaccine (Do NOT chart on this placeholder) 1 each 1X ONCE MC ; Start 10/01/16 at 09:00; Stop 10/01/16 at 09:01; Status UNV Influenza Virus Vaccine Quadrival (Fluarix Quad [id number] Syringe) 0.5 ml ONCE ONCE VAX IM ; Start 10/01/16 at 09:00; Stop 10/01/16 at 09:01; Status DC Pneumococcal Polyvalent Vaccine (Pneumovax 23) 0.5 ml ONCE ONCE VAX IM ; Start 10/01/16 at 09:00; Stop 10/01/16 at 09:01; Status DC Ondansetron HCl (Zofran) 4 mg PRN Q6HRS PRN IV NAUSEA/VOMITING; Start 10/01/16 at 08:44 Active Scripts Active Flomax (Tamsulosin Hcl) 0.4 Mg Cap.er.24h 1 Cap PO DAILY Cipro (Ciprofloxacin Hcl) 500 Mg Tablet 1 Tab PO BID PRN Reported Keppra (Levetiracetam) 500 Mg Tablet 1 Tab PO BID Duloxetine Hcl 30 Mg Capsule.dr 30 Mg PO BID Metformin Hcl 1,000 Mg Tablet 1 Tab PO BID Lisinopril-Hctz 20-12.5 Mg Tab (Lisinopril/Hydrochlorothiazide) 1 Each Tablet 1 Tab PO DAILY Norvasc (Amlodipine Besylate) 10 Mg Tablet 10 Mg PO DAILY Flomax (Tamsulosin Hcl) 0.4 Mg Cap.er.24h 1 Cap PO DAILY Januvia (Sitagliptin Phosphate) 100 Mg Tablet 1 Tab PO DAILY Vitals/I & O Vital Sign - Last 24 Hours 09/30/16 09/30/16 09/30/16 09/30/16 14:39 15:10 15:40 15:47 Temp 98.5 98.5 Pulse 68 66 64 Resp 16 17 18 16 B/P 135/66 130/69 121/69 Pulse Ox 100 99 98 O2 Delivery Room Air Room Air 09/30/16 09/30/16 09/30/16 09/30/16 17:53 18:23 18:53 19:23 Pulse 50 58 58 59 B/P 145/71 131/70 135/70 176/96 Pulse Ox 98 99 98 O2 Delivery Room Air Room Air Room Air Room Air 09/30/16 09/30/16 09/30/1617 19:53 20:23 20:53 21:23 Pulse 56 55 58 63 B/P 190/86 140/67 144/70 170/97 Pulse Ox 98 98 98 O2 Delivery Room Air Room Air Room Air Room Air 09/30/16 09/30/16 09/30/16 09/30/16 21:53 22:23 22:53 23:23 Pulse 60 73 60 66 B/P 140/71 137/82 157/72 149/72 Pulse Ox 99 100 98 98 O2 Delivery Room Air Room Air Room Air Room Air 09/30/16 10/01/16 10/01/16 10/01/16 23:54 01:02 03:44 07:00 Temp 97.9 97.8 98.6 97.9 97.8 98.6 Pulse 70 68 66 Resp 18 18 18 B/P 169/95 143/89 134/78 Pulse Ox 98 99 99 O2 Delivery Room Air Room Air Room Air Room Air 10/01/16 10/01/16 10/01/16 08:00 08:02 08:02 Pulse 66 66 B/P 134/78 134/78 O2 Delivery Room Air Intake and Output 09/30/16 09/30/16 10/01/16 15:01 23:01 07:01 Intake Total 1050 ml 711 ml Output Total 300 ml Balance 1050 ml 411 ml JEISON JEAN MD Oct 01, 2016 10:56
[2016-10-01] MEDS ORDERED: CEFOXITIN SODIUM 2 GM in IV NORMAL SALINE 100ML 100 ML IV SCH (13:45)
[2016-10-01] MEDS ORDERED: LIDOCAINE 2% 100 MG/5 ML DISP.SYRIN. ONE (13:48)
[2016-10-01] MEDS ORDERED: PROPOFOL 100 ML IV ONE (13:48)
[2016-10-01] MEDS ORDERED: ROCURONIUM 50 MG/5 ML VIAL. ONE (13:49)
[2016-10-01] MEDS ORDERED: FENTANYL PF 100 MCG/2 ML VIAL. ONE (13:49)
[2016-10-01] MEDS ORDERED: SUCCINYLCHOLINE 200 MG/10 ML VIAL. ONE (13:49)
[2016-10-01] MEDS ORDERED: BUPIVAC MPF-EPI 0.5%-1:200000 30 ML VIAL. ONE (13:54)
[2016-10-01] MEDS ORDERED: CEFOXITIN 2GM IVPB FOR OMNI 100 ML IV ONE ×2 (13:59→14:17)
[2016-10-01] MEDS ORDERED: IV RINGERS,LACTATED 1000ML 1,000 ML IV ONE (14:30)
[2016-10-01] MEDS ORDERED: DEXAMETHASONE SOD PHOS 20 MG/5 ML VIAL. ONE (14:46)
[2016-10-01] MEDS ORDERED: DESFLURANE 31 TO 60 MINUTES IH ONE (14:46)
[2016-10-01] MEDS ORDERED: ONDANSETRON PF 4 MG/2 ML VIAL. ONE (14:47)
[2016-10-01] MEDS ORDERED: NEOSTIGMINE METHYLSULFATE 5 MG/5 ML SYRINGE. ONE (14:47)
[2016-10-01] MEDS ORDERED: GLYCOPYRROLATE 1 MG/5 ML VIAL. ONE (14:47)
[2016-10-01] MEDS ORDERED: PHENYLEPHRINE in 0.9% NACL PF 1 MG/10 ML DISP.SYRIN. IV ONE (14:59)
[2016-10-01] MEDS ORDERED: IV RINGERS,LACTATED 1000ML 1,000 ML IV SCH ×2 (15:26→15:50)
[2016-10-01] MEDS ORDERED: 0.9 % SODIUM CHLORIDE 10 ML DISP.SYRIN. IV PRN (15:30)
[2016-10-01] MEDS ORDERED: KETOROLAC 15 MG/ML VIAL. IV PRN (15:30)
[2016-10-01] MEDS ORDERED: MORPHINE SULFATE 2 MG/ML DISP.SYRIN. IV PRN (16:00)
[2016-10-01] MEDS ORDERED: PROCHLORPERAZINE 10 MG/2 ML VIAL. IV PRN (16:00)
[2016-10-01] MEDS ORDERED: FENTANYL PF 100 MCG/2 ML VIAL. IV PRN ×2 (16:00)
[2016-10-01] MEDS ORDERED: LIDOCAINE 1% 1 ML SYRINGE. ID PRN (16:00)
[2016-10-01] MEDS ORDERED: HYDROMORPHONE 2 MG/ML VIAL. IV PRN (16:00)
--- NOTE | 2016-10-01 16:40 | PDOC ---
BRIEF OPERATIVE NOTE Pre-Op Diagnosis Appendicitis Post-Op Diagnosis same Procedure Performed Laparoscopic appendectomy Surgeon Nathalia Anesthesia Type: General, Local Blood Loss 5 IV Fluid 1000 Specimens Obtained Appendix Findings dialated appendix Complications none Additional Remarks [id number] JD HESTER MD Oct 01, 2016 16:40
[2016-10-01] MEDS: HYDROCODONE/APAP 5/325MG TABLET. PO PRN ×2 (17:40→22:02)
[2016-10-01] MEDS: DOCUSATE SODIUM 100 MG CAPSULE PO SCH (20:06)
[2016-10-01] MEDS: HEPARIN PF for SUB-Q USE 5,000 UNIT/0.5 ML VIAL. SQ SCH (22:00)
[2016-10-02 03:22] VITALS: BP 143/86
--- NOTE | 2016-10-02 05:25 | OP ---
DATE OF SURGERY: 10/01/2016 REFERRING PHYSICIANS: Dr. Sydni Nance, Dr. Zhang, and Dr. Maria Del Carmen Perera. PREOPERATIVE DIAGNOSIS: Appendicitis. POSTOPERATIVE DIAGNOSIS: Appendicitis. PROCEDURE: Laparoscopic appendectomy. SURGEON: Ned Sloan M.D. ESTIMATED BLOOD LOSS: 5 mL. FLUIDS: 1000 mL. COMPLICATIONS: None. FINDINGS: Indurated and distended appendix. INDICATIONS: This is an 81-year-old male who presents with several-week history of right lower quadrant abdominal pain. Imaging was concerning for a dilated appendix. Subsequently, it was felt patient would best be served by laparoscopic versus open appendectomy. The patient and patient's were informed of the risks, benefits, alternatives to procedure, risks including but not limited to bleeding, infection, damage to the surrounding structures, risk of anesthesia, risk of an open procedure. The patient and patient's appeared to understand, their insightful questions were answered, and they agreed to proceed. DESCRIPTION OF PROCEDURE: After obtaining informed consent, the patient was taken to the operating room, induced under general endotracheal anesthetic. The patient was prepped and draped in usual fashion in the anterior abdominal wall. Marcaine 0.5% with epinephrine was injected in the left lower quadrant abdominal wall. Incision was made using a 15 blade scalpel, 5 mm nonbladed trocar was introduced into the abdominal cavity under direct vision of the laparoscope. Pneumoperitoneum was established. Additional 12 mm port was placed in the supraumbilical area and another 5 mm port was placed in the suprapubic area, all under direct vision of the laparoscope. The abdominal cavity was explored. The liver was normal in appearance. Gallbladder was normal in appearance. The visualized portion of viscera was normal in appearance. There was no evidence of trocar injury. The appendix was identified coming off the confluence of tinea at the level of the cecum. It was noted to be very distended with somewhat injected wall. No other pathology was noted in the abdominal cavity. The viscera and colon appeared to be normal in appearance. There was no evidence of hernia. A defect was created in the mesoappendix. ____ HARJEET stapler was taken across the base of the appendix. A vascular load was taken across the mesoappendix. Appendix was placed in an EndoCatch bag, brought out through the umbilical port and passed off the field and sent to pathology for further evaluation. Additional hemostasis was obtained on the mesoappendix using clips. No evidence of bleeding at the time of closure. The abdominal cavity was copiously irrigated with normal saline solution. There was no evidence of bleeding or other pathology at the time of closure. All ports were removed under direct vision of laparoscope. There was no evidence of port site bleeding. Fascial defect in the supraumbilical area was re-approximated using interrupted 0 Vicryl stitch using Endo Close. All skin incisions were approximated using multiple interrupted 4-0 Monocryl in a subcuticular fashion. Sterile dressing was placed over all wounds. The patient tolerated procedure well and was discharged to recovery room in stable condition. All counts were correct. There were no immediate complications. NED SLOAN MD DR: LISA/hugh JOB#: [id number] / [id number] MARIA DEL CARMEN Kauffman URSULA MD
[2016-10-02] MEDS: HEPARIN PF for SUB-Q USE 5,000 UNIT/0.5 ML VIAL. SQ SCH (06:23)
[2016-10-02 07:00] VITALS: BP 139/82
[2016-10-02] MEDS: AMLODIPINE BESYLATE 10 MG TABLET PO SCH (09:24)
[2016-10-02] MEDS: DOCUSATE SODIUM 100 MG CAPSULE PO SCH (09:24)
[2016-10-02] MEDS: LEVETIRACETAM 500 MG TABLET PO SCH (09:24)
[2016-10-02] MEDS: TAMSULOSIN 0.4 MG CAP.ER.24H. PO SCH (09:24)
[2016-10-02] MEDS: DULOXETINE HCL 30 MG CAPSULE.DR. PO SCH (09:25)
[2016-10-02] MEDS: LISINOPRIL 20 MG TABLET PO SCH (09:25)
[2016-10-02] MEDS: INSULIN ASPART 300 UNITS/3 ML INSULN.PEN SQ SCH ×2 (09:31→12:03)
--- NOTE | 2016-10-02 10:01 | PDOC ---
SURGICAL PROGRESS NOTE Subjective tolerating diet ambulating urinating Vital Signs Vital Signs Date Time Temp Pulse Resp B/P Pulse Ox O2 Delivery O2 Flow Rate FiO2 10/02/16 09:25 82 139/82 10/02/16 07:00 98.4 18 97 Room Air 98.4 10/01/16 18:40 10.0 I&O Intake and Output 10/02/16 07:00 Intake Total 900 ml Output Total 1280 ml Balance -380 ml Intake Oral 0 ml IV Total 900 ml Output Urine Total 1275 ml Estimated Blood Loss 5 ml # Voids 4 General: Alert, Oriented X3, Cooperative, No acute distress Abdomen: Soft, Other (lap dressings dry) Labs Laboratory Tests Test 09/30/16 14:47 09/30/16 15:35 09/30/16 16:10 10/01/16 03:40 White Blood Count 5.3x10^3/uL (4.0-11.0) 9.6x10^3/uL (4.0-11.0) Red Blood Count 5.07x10^6/uL (4.30-5.70) 4.85x10^6/uL (4.30-5.70) Hemoglobin 13.5g/dL (13.0-17.5) 13.0g/dL (13.0-17.5) Hematocrit 42.2% (39.0-53.0) 40.3% (39.0-53.0) Mean Corpuscular Volume 83fL (79-100) 83fL (79-100) Mean Corpuscular Hemoglobin 27pg (25-35) 27pg (25-35) Mean Corpuscular Hemoglobin Concent 32g/dL (31-37) 32g/dL (31-37) Red Cell Distribution Width 15.4% (11.5-14.5) 15.3% (11.5-14.5) Platelet Count 274x10^3/uL (140-400) 270x10^3/uL (140-400) Neutrophils (%) (Auto) 38% (31-73) 35% (31-73) Lymphocytes (%) (Auto) 53% (24-48) 56% (24-48) Monocytes (%) (Auto) 8% (0-9) 8% (0-9) Eosinophils (%) (Auto) 1% (0-3) 1% (0-3) Basophils (%) (Auto) 1% (0-3) 0% (0-3) Neutrophils # (Auto) 2.0x10^3uL (1.8-7.7) 3.3x10^3uL (1.8-7.7) Lymphocytes # (Auto) 2.8x10^3/uL (1.0-4.8) 5.4x10^3/uL (1.0-4.8) Monocytes # (Auto) 0.4x10^3/uL (0.0-1.1) 0.8x10^3/uL (0.0-1.1) Eosinophils # (Auto) 0.0x10^3/uL (0.0-0.7) 0.0x10^3/uL (0.0-0.7) Basophils # (Auto) 0.0x10^3/uL (0.0-0.2) 0.0x10^3/uL (0.0-0.2) Sodium Level 138mmol/L (136-145) 139mmol/L (136-145) Potassium Level 4.2mmol/L (3.5-5.1) 4.0mmol/L (3.5-5.1) Chloride Level 102mmol/L (98-107) 104mmol/L (98-107) Carbon Dioxide Level 28mmol/L (21-32) 26mmol/L (21-32) Anion Gap 8 (6-14) 9 (6-14) Blood Urea Nitrogen 19mg/dL (8-26) 12mg/dL (8-26) Creatinine 1.2mg/dL (0.7-1.3) 0.9mg/dL (0.7-1.3) Estimated GFR (Cockcroft-Gault) 70.1 97.8 BUN/Creatinine Ratio 16 (6-20) Glucose Level 188mg/dL (70-99) 106mg/dL (70-99) Calcium Level 9.3mg/dL (8.5-10.1) 9.1mg/dL (8.5-10.1) Total Bilirubin 0.5mg/dL (0.2-1.0) Aspartate Amino Transf (AST/SGOT) 16U/L (15-37) Alanine Aminotransferase (ALT/SGPT) 31U/L (16-63) Alkaline Phosphatase 79U/L (46-116) Total Protein 8.5g/dL (6.4-8.2) Albumin 3.1g/dL (3.4-5.0) Albumin/Globulin Ratio 0.6 (1.0-1.7) Lipase 115U/L (73-393) Lactic Acid Level 1.7mmol/L (0.4-2.0) Urine Collection Type Unknown Urine Color Yellow Urine Clarity Clear Urine pH 6.0 Urine Specific Chloe 1.020 Urine Protein Negativemg/dL (NEG-TRACE) Urine Glucose (UA) 500mg/dL (NEG) Urine Ketones (Stick) Negativemg/dL (NEG) Urine Blood Negative (NEG) Urine Nitrite Negative (NEG) Urine Bilirubin Negative (NEG) Urine Urobilinogen Dipstick 0.2mg/dL (0.2 mg/dL) Urine Leukocyte Esterase Negative (NEG) Urine RBC 0/HPF (0-2) Urine WBC Occ/HPF (0-4) Urine Squamous Epithelial Cells Few/LPF Urine Bacteria Few/HPF (0-FEW) Urine Mucus Mod/LPF Segmented Neutrophils % 27% (35-66) Band Neutrophils % 1% (0-9) Lymphocytes % 66% (24-48) Atypical Lymphocytes % (Manual) 3% (0-0) Monocytes % 3% (0-10) Platelet Estimate Adequate (ADEQUATE) Large Platelets Present Anisocytosis Slight Test 10/01/16 11:21 10/01/16 16:11 10/01/16 17:16 10/01/16 20:35 Glucose (Fingerstick) 107mg/dL (70-99) 129mg/dL (70-99) 128mg/dL (70-99) 176mg/dL (70-99) Test 10/02/16 07:37 Glucose (Fingerstick) 162mg/dL (70-99) Laboratory Tests Test 10/01/16 11:21 10/01/16 16:11 10/01/16 17:16 10/01/16 20:35 Glucose (Fingerstick) 107mg/dL (70-99) 129mg/dL (70-99) 128mg/dL (70-99) 176mg/dL (70-99) Test 10/02/16 07:37 Glucose (Fingerstick) 162mg/dL (70-99) Problem List Problems Medical Problems: (1) Abdominal pain Status: Acute (2) Urinary frequency Status: Acute Assessment/Plan s/p lap appy dc home FU 2 weeks Problems: SHERITA CHAUDHARI APRN Oct 02, 2016 10:01
[2016-10-02] MEDS ORDERED: HYDR-2666 PO (10:52)
[2016-10-02 10:53] VITALS: BP 147/86
--- NOTE | 2016-10-03 01:01 | DS ---
DATE OF DISCHARGE: 10/02/2016 DISCHARGE DIAGNOSES: Suspected appendicitis, status post laparoscopic appendectomy by Dr. Sloan on 10/01/2016. BRIEF HOSPITAL COURSE: An 81-year-old male patient admitted to the hospital on 09/30/2016 for right lower quadrant abdominal pain. IMAGING STUDIES: CT of the abdomen showed suspected early appendicitis. He was evaluated by Dr. Sloan who recommended and performed laparoscopic appendectomy. Post-surgery the patient tolerated food very well. Denies any symptoms and no complications such as fever or bleeding seen. Today, he deemed clinically stable to go home and follow up with Dr. Sloan in 2 weeks. DISCHARGE PHYSICAL EXAMINATION: GENERAL: Alert, oriented x 3. HEART: S1, S2 present. LUNGS: Anterior chest clear. ABDOMEN: Soft, nontender, no organomegaly. EXTREMITIES: No edema. DISCHARGE DISPOSITION: Home. DISCHARGE CONDITION: Stable. MEDICATIONS: Reviewed and reconciled. FOLLOWUP: With Dr. Sloan in 2 weeks. DIET: Regular. Total time spent for discharge is 32 minutes for patient education, counseling, and coordination of care. TIARRA SINGH MD DR: YONATAN/hugh JOB#: [id number] / [id number]
--- NOTE | 2016-10-03 14:14 | PATHOLOGY ---
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 COMMENT: There is no evidence of an acute appendicitis. (JPM:csd; d/t: 10/03/2016) REPORT ELECTRONICALLY SIGNED BY: Primo Hawkins M.D. DATE/TIME: 10/03/2016 14:13 * * * * * * * * GROSS PATHOLOGY: Received in formalin labeled "Gabi Walker and appendix," is an appendix measuring 6.2 cm in length and 1.2 cm in diameter with a scant amount of attached mesoappendix. The serosal surface is pink-harris, slightly hemorrhagic, wrinkled, and displays few adhesions. Sectioning reveals a stenotic/pinpoint lumen. The mucosa is harris and grossly unremarkable. The wall measures 0.3 cm in thickness. Test Driller sections are submitted as follows: A1 bisected distal tip and proximal resection margin A2 sections from body of appendix (TTL; 10/02/2016) INITIAL CPT CODE(S): A; 07280 Professional services performed [place] [address] Technical services performed by [facility] at [address] [place] [address] [address], [place] [address]. SPECIMEN(S) RECEIVED: A.Appendix CLINICAL HISTORY: Abdominal pain PATIENT: GABI WALKER /AGE: 1 1935 (Age: 81) PATIENT #: [id number] ALT CASE #: SPECIMEN COLLECTION DATE: 10/01/2016 SPECIMEN RECEIVED DATE: 10/02/2016 [facility] - [address] [place] [address] - PHONE: [phone] * * * END OF REPORT * * *
== END 2016-10-02 15:35 | disposition home or self-care (01) | DRG 342 ==
LOC: ER 14:27 → ED HOLD 19:30 → 5 SOUTH 23:57
PROVIDERS: ADMIT Internal Medicine Hematology & Oncology; ATTEND Internal Medicine Hematology & Oncology
PROC: 0DTJ4ZZ Resection of Appendix, Percutaneous Endoscopic Approach (ICD-10-PCS; principal; 2016-10-01 13:30)
DX: K35.80 Unspecified acute appendicitis (principal); E44.1 Mild protein-calorie malnutrition; E11.9 Type 2 diabetes mellitus without complications; H54.8 Legal blindness, as defined in USA; I10 Essential (primary) hypertension; M19.90 Unspecified osteoarthritis, unspecified site; R55 Syncope and collapse; R56.9 Unspecified convulsions; N40.0 Benign prostatic hyperplasia without lower urinary tract symptoms; Z86.73 Personal history of transient ischemic attack (TIA), and cerebral infarction without residual deficits; Z79.84 Long term (current) use of oral hypoglycemic drugs
CPT/HCPCS: 36415; 74176; 80048; 80053; 81001; 82947; 83605; 83690; 85007; 85027; 87040; 88304; 90686; 90732; 96361; 96365; 96375; C1782; J0330; J0690; J0694; J1100; J1815; J2370; J2405; J2704; J2710; J3010; J3490; J7030; J7120; 99285-25

== ENCOUNTER 2017-03-26 13:55 | Emergency (ER) | payer MEDICARE, BC ==
[~2017-03-26] VITALS: Ht 180.3 cm; Wt 78.0 kg
[~2017-03-26 13:55] MED LIST changes: +CIPR500T94 PO; +HYDR-2758 PO; +METF-620 PO; -METF10002 PO
[2017-03-26] MEDS ORDERED: IV NORMAL SALINE 1000ML BAG 1,000 ML IV SCH (15:57)
[2017-03-26] MEDS ORDERED: ONDANSETRON PF 4 MG/2 ML VIAL. IV ONE (16:00)
[2017-03-26] MEDS ORDERED: fentaNYL PF VIAL 100 MCG/2 ML VIAL IV PRN (16:00)
[2017-03-26 16:12] LABS: BASO # 0.1 x10^3/uL (0.0-0.2); BASO % 1 % (0-3); EOS % 1 % (0-3); HEMATOCRIT 36.6 % (39.0-53.0); LYMPH # 2.7 x10^3/uL (1.0-4.8); LYMPH % 31 % (24-48); MEAN CORPUSCULAR HEMOGLOBIN 27 pg (25-35); MEAN CORPUSCULAR HGB CONC 33 g/dL (31-37); MEAN CORPUSCULAR VOLUME 83 fL (79-100); MONO % 10 % (0-9); NEUT % 57 % (31-73); PLATELET COUNT 311 x10^3/uL (140-400); RED BLOOD COUNT 4.43 x10^6/uL (4.30-5.70); RED CELL DISTRIBUTION WIDTH 14.9 % (11.5-14.5); WHITE BLOOD COUNT 8.7 x10^3/uL (4.0-11.0)
[2017-03-26 16:23] LABS: CALCIUM 8.8 mg/dL (8.5-10.1); GFR 86.6; POTASSIUM 4.4 mmol/L (3.5-5.1)
--- NOTE | 2017-03-26 16:23 | EKG ---
[facility] [address] [place] [address] Test Date: 2017-03-26 Test Time: 16:08:01 Pat Name: GABI WALKER Department: Room: Gender: M Pharmacognosist: : 1935 Requested By: RAMA DICKSON Order Number: [id number] Reading MD: Himanshu Curry Measurements Intervals [place] Rate: 66 P: 55 NV: 120 QRS: 20 QRSD: 68 T: 27 QT: 376 QTc: 396 Interpretive Statements SINUS RHYTHM QRS(T) CONTOUR ABNORMALITY CONSISTENT WITH ANTEROSEPTAL INFARCT Electronically Signed On 04-01-2017 14:19:47 CDT by Himanshu Curry
--- NOTE | 2017-03-26 16:28 | PHYS DOC ---
Past Medical History Past Medical History: CVA, Diabetes-Type II, Hypertension, Seizure Additional Past Medical Histor: legally blind Past Surgical History: Other Additional Past Surgical Histo: bladder sx Alcohol Use: None Drug Use: None Adult General Chief Complaint Chief Complaint: URINARY RETENTION HPI HPI Patient is a 81 year old male who presents with complaint of urinary frequency and lower abdominal pain for the past 4 days. The patient states that he has been having difficulty urinating and has been only producing small amounts of urine but has been going more frequently over the last 4 days. The patient denies any associated fevers. Patient has had dizziness, generalized weakness, and nausea associated with his symptoms. Patient states that he gets dizzy when he tries to stand up and walk. The patient denies any vomiting. Patient states that his pain is in his lower abdomen and radiates towards his right side. Patient states that this feels like intermittent cramping. Patient rates pain as 5 out of 10. Patient has not taken medications to help with symptoms. Review of Systems Review of Systems Constitutional: Generalized weakness [] Eyes: Denies change in visual acuity, redness, or eye pain [] HENT: Denies nasal congestion or sore throat [] Respiratory: Denies cough or shortness of breath [] Cardiovascular: Denies chest pain or edema [] GI: Abdominal pain, nausea, denies bloody stools or diarrhea [] : Urinary frequency, oliguria [] Musculoskeletal: Denies back pain or joint pain [] Integument: Denies rash or skin lesions [] Neurologic: Denies headache, focal weakness or sensory changes [] Current Medications Current Medications Current Medications Medications (Trade) Dose Ordered Sig/[facility] Start Time Stop Time Status Last Admin Dose Admin Ciprofloxacin (Cipro) 500 mg 1X ONCE 03/26/17 17:45 03/26/17 17:46 Fentanyl Citrate (Fentanyl 2ml Vial) 50 mcg PRN Q15MIN PRN 03/26/17 16:00 03/27/17 15:59 03/26/17 16:42 50 MCG Ondansetron HCl (Zofran) 4 mg 1X ONCE 03/26/17 16:00 03/26/17 16:03 DC 03/26/17 16:40 4 MG Phenazopyridine HCl (Pyridium) 200 mg 1X ONCE 03/26/17 17:45 03/26/17 17:46 Sodium Chloride 1,000 ml @ 1,000 mls/hr Q1H 03/26/17 15:57 03/26/17 16:56 DC 03/26/17 16:39 1,000 MLS/HR Allergies Allergies Allergies Coded Allergies Type Severity Reaction Last Updated Verified No Known Drug Allergies 02/12/14 No Physical Exam Physical Exam Constitutional: Alert, afebrile, appears in minimal discomfort. [] HENT: Normocephalic, atraumatic, bilateral external ears normal, oropharynx moist, no oral exudates, nose normal. [] Eyes: PERRLA, EOMI, conjunctiva normal, no discharge. [] Neck: Normal range of motion, no tenderness, supple, no stridor. [] Cardiovascular:Heart rate regular rhythm, no murmur [] Lungs & Thorax: Bilateral breath sounds clear to auscultation [] Abdomen: Bowel sounds normal, soft, mild suprapubic tenderness to palpation, no masses, no pulsatile masses. [] Skin: Warm, dry, no erythema, no rash. [] Back: No tenderness, no CVA tenderness. [] Extremities: No tenderness, no cyanosis, no clubbing, ROM intact, no edema. [] Neurologic: Alert and oriented X 3, normal motor function, normal sensory function, no focal deficits noted. [] Current Patient Data Vital Signs Vital Signs Date Time Temp Pulse Resp B/P (MAP) Pulse Ox O2 Delivery O2 Flow Rate FiO2 03/26/17 16:42 20 98 Room Air 03/26/17 14:50 98.3 66 128/79 (95) 98.3 Lab Values Laboratory Tests Test 03/26/17 15:40 03/26/17 16:00 Urine Collection Type Unknown Urine Color Yellow Urine Clarity Cloudy Urine pH 5.5 Urine Specific [place] 1.020 Urine Protein 30 mg/dL (NEG-TRACE) Urine Glucose (UA) Negative mg/dL (NEG) Urine Ketones (Stick) Negative mg/dL (NEG) Urine Blood Large (NEG) Urine Nitrite Negative (NEG) Urine Bilirubin Negative (NEG) Urine Urobilinogen Dipstick 0.2 mg/dL (0.2 mg/dL) Urine Leukocyte Esterase Small (NEG) Urine RBC 6-10 /HPF (0-2) Urine WBC 1-4 /HPF (0-4) Urine Squamous Epithelial Cells Few /LPF Urine Transitional Epithelial Cells Occ /LPF Urine Bacteria 0 /HPF (0-FEW) Urine Mucus Mod /LPF White Blood Count 8.7 x10^3/uL (4.0-11.0) Red Blood Count 4.43 x10^6/uL (4.30-5.70) Hemoglobin 12.0 g/dL (13.0-17.5) L Hematocrit 36.6 % (39.0-53.0) L Mean Corpuscular Volume 83 fL (79-100) Mean Corpuscular Hemoglobin 27 pg (25-35) Mean Corpuscular Hemoglobin Concent 33 g/dL (31-37) Red Cell Distribution Width 14.9 % (11.5-14.5) H Platelet Count 311 x10^3/uL (140-400) Neutrophils (%) (Auto) 57 % (31-73) Lymphocytes (%) (Auto) 31 % (24-48) Monocytes (%) (Auto) 10 % (0-9) H Eosinophils (%) (Auto) 1 % (0-3) Basophils (%) (Auto) 1 % (0-3) Neutrophils # (Auto) 5.0 x10^3uL (1.8-7.7) Lymphocytes # (Auto) 2.7 x10^3/uL (1.0-4.8) Monocytes # (Auto) 0.9 x10^3/uL (0.0-1.1) Eosinophils # (Auto) 0.1 x10^3/uL (0.0-0.7) Basophils # (Auto) 0.1 x10^3/uL (0.0-0.2) Sodium Level 140 mmol/L (136-145) Potassium Level 4.4 mmol/L (3.5-5.1) Chloride Level 102 mmol/L (98-107) Carbon Dioxide Level 28 mmol/L (21-32) Anion Gap 10 (6-14) Blood Urea Nitrogen 13 mg/dL (8-26) Creatinine 1.0 mg/dL (0.7-1.3) Estimated GFR (Cockcroft-Gault) 86.6 BUN/Creatinine Ratio 13 (6-20) Glucose Level 110 mg/dL (70-99) H Calcium Level 8.8 mg/dL (8.5-10.1) Total Bilirubin 0.4 mg/dL (0.2-1.0) Aspartate Amino Transferase (AST) 12 U/L (15-37) L Alanine Aminotransferase (ALT) 21 U/L (16-63) Alkaline Phosphatase 72 U/L (46-116) Creatine Kinase 89 U/L (39-308) Total Protein 7.7 g/dL (6.4-8.2) Albumin 2.8 g/dL (3.4-5.0) L Albumin/Globulin Ratio 0.6 (1.0-1.7) L Lipase 82 U/L (73-393) Laboratory Tests 03/26/17 16:00 Laboratory Tests 03/26/17 16:00 EKG EKG Interpreted by me: Heart rate 66, sinus rhythm, normal intervals, normal axis, no acute ST/T-wave abnormalities present [] Radiology/Procedures Radiology/Procedures Not performed [] Course & Med Decision Making Course & Med Decision Making Pertinent Labs and Imaging studies reviewed. (See chart for details) Patient was given IV fluids in the emergency department. The patient's urine sample shows evidence of pyuria, hematuria, and positive leukoesterase concerning for acute infection. The patient showed no evidence of urinary obstruction. Upon administration of IV fluids, the patient's urine output actually improved. The patient's blood work otherwise is unremarkable at this time. The patient will be treated for urinary tract infection. Advised patient to increase oral fluid intake at home. The patient will be treated with Cipro and Pyridium for outpatient treatment with recommended follow-up in 2 days a primary doctor for reevaluation. Advised return emergency department for any worsening symptoms. Patient patient's voiced understanding and in agreement with treatment plan. Dragon Disclaimer Dragon Disclaimer This electronic medical record was generated, in whole or in part, using a voice recognition dictation system. Departure Departure Impression: Primary Impression: Urinary tract infection Additional Impression: Hypovolemia Disposition: 01 HOME, SELF-CARE Condition: IMPROVED Referrals: MARIA DEL CARMEN NICHOLAS (PCP) Patient Instructions: Urinary Tract Infection Additional Instructions: Follow-up with your primary doctor in 2 days for reevaluation. Return to the emergency department for any worsening symptoms. Scripts Phenazopyridine Hcl (PYRIDIUM) 200 Mg Tablet 200 MG PO TID, #6 TAB Prov: RAMA DICKSON MD 03/26/17 Ciprofloxacin Hcl (CIPRO) 500 Mg Tablet 1 TAB PO BID, #14 TAB Prov: RAMA DICKSON MD 03/26/17 Problem Qualifiers Primary Impression: Urinary tract infection Urinary tract infection type: acute cystitis Hematuria presence: with hematuria Qualified Codes: N30.01 - Acute cystitis with hematuria RAMA DICKSON MD Mar 26, 2017 16:28
[2017-03-26 16:31] LABS: ALBUMIN 2.8 g/dL (3.4-5.0); ALBUMIN/GLOBULIN RATIO 0.6 (1.0-1.7); TOTAL BILIRUBIN 0.4 mg/dL (0.2-1.0); TOTAL PROTEIN 7.7 g/dL (6.4-8.2)
[2017-03-26 16:55] LABS: BILIRUBIN,URINE NEGATIVE (NEG); GLUCOSE,URINE NEGATIVE (NEG); NITRITE,URINE NEGATIVE (NEG); PH,URINE 5.5; PROTEIN,URINE 30 mg/dL (NEG-TRACE); UROBILINOGEN,URINE 0.2 mg/dL (0.2 mg/dL)
[2017-03-26 17:12] LABS: BACTERIA,URINE 0 /HPF (0-FEW); SQUAMOUS EPITHELIAL CELL,UR FEW /LPF
[2017-03-26] MEDS ORDERED: CIPR500T94 PO (17:42)
[2017-03-26] MEDS ORDERED: PHEN-318 PO (17:42)
[2017-03-26] MEDS ORDERED: CIPROFLOXACIN HCL 250 MG TABLET. PO ONE (17:45)
[2017-03-26] MEDS ORDERED: PHENAZOPYRIDINE 200 MG TABLET. PO ONE (17:45)
[2017-03-26 17:51] VITALS: BP 182/83
== END 2017-03-26 17:50 | disposition home or self-care (01) ==
LOC: ER 13:55
DX: N39.0 Urinary tract infection, site not specified (principal); E86.1 Hypovolemia; I10 Essential (primary) hypertension; E11.9 Type 2 diabetes mellitus without complications; Z86.73 Personal history of transient ischemic attack (TIA), and cerebral infarction without residual deficits
CPT/HCPCS: 36415; 80053; 81001; 82550; 83690; 85025; 87086; 93005; 96361; 96374; 96375; 99285; J2405; J3010; J7030

== ENCOUNTER 2019-10-10 15:07 | Inpatient (IN) | payer MEDICARE, BC ==
[~2019-10-10] VITALS: Ht 180.3 cm; Wt 76.4 kg
[~2019-10-10 15:07] MED LIST changes: -DULO30CA43 PO; +DULO30CA44 PO; -HYDR-2758 PO; +HYDR-2761 PO; +LISI1TAB19 PO; -LISI1TAB5 PO; -METF-620 PO; +METF10007 PO; +PHEN-318 PO
[2019-10-10 15:35] LABS: BASO % 1 % (0-3); EOS % 1 % (0-3); HEMATOCRIT 36.6 % (39.0-53.0); HEMOGLOBIN 12.1 g/dL (13.0-17.5); LYMPH # 2.9 x10^3/uL (1.0-4.8); LYMPH % 49 % (24-48); MEAN CORPUSCULAR HEMOGLOBIN 28 pg (25-35); MEAN CORPUSCULAR HGB CONC 33 g/dL (31-37); MEAN CORPUSCULAR VOLUME 85 fL (79-100); MONO # 0.4 x10^3/uL (0.0-1.1); MONO % 7 % (0-9); NEUT # 2.5 x10^3/uL (1.8-7.7); NEUT % 43 % (31-73); PLATELET COUNT 280 x10^3/uL (140-400); RED BLOOD COUNT 4.33 x10^6/uL (4.30-5.70); RED CELL DISTRIBUTION WIDTH 15.3 % (11.5-14.5); WHITE BLOOD COUNT 5.9 x10^3/uL (4.0-11.0)
[2019-10-10 15:44] LABS: CALCIUM 9.3 mg/dL (8.5-10.1); CREATININE 1.3 mg/dL (0.7-1.3); GFR 63.5; POTASSIUM 3.8 mmol/L (3.5-5.1)
[2019-10-10 15:49] LABS: ALBUMIN 3.1 g/dL (3.4-5.0); ALBUMIN/GLOBULIN RATIO 0.7 (1.0-1.7); MAGNESIUM 1.8 mg/dL (1.8-2.4); TOTAL BILIRUBIN 0.6 mg/dL (0.2-1.0); TOTAL PROTEIN 7.8 g/dL (6.4-8.2)
--- NOTE | 2019-10-10 15:59 | PHYS DOC ---
Past Medical History Past Medical History: Cancer, CVA, Dementia, Diabetes-Type II, Hypertension, Seizure Additional Past Medical Histor: legally blind, PROSTATE CANCER Past Surgical History: Other Additional Past Surgical Histo: bladder sx Smoking Status: Never Smoker Alcohol Use: None Drug Use: None Adult General Chief Complaint Chief Complaint: NEAR SYNCOPE [facility] HPI Patient is a 84 year old legally blind male with history of hypertension, diabetes mellitus, CVA, prostate cancer, dementia, seizure who presents via EMS because of syncopal episode. EMS reported that patient family called 911 with complaint of syncope. Patient states his is in the hospital for the last 2 weeks and he almost passed out today. Patient is a poor historian and cannot give a reliable history. No family member presented to the emergency room. Review of Systems Review of Systems Constitutional: Denies fever or chills [] Eyes: Denies change in visual acuity, redness, or eye pain [] HENT: Denies nasal congestion or sore throat [] Respiratory: Denies cough or shortness of breath [] Cardiovascular: No additional information not addressed in HPI [] GI: Denies abdominal pain, nausea, vomiting, bloody stools or diarrhea [] : Denies dysuria or hematuria [] Musculoskeletal: Denies back pain, reports chronic right lower extremity pain] Integument: Denies rash or skin lesions [] Neurologic: Denies headache, focal weakness or sensory changes [] Endocrine: Denies polyuria or polydipsia [] All other systems were reviewed and found to be within normal limits, except as documented in this note. Allergies Allergies Allergies Coded Allergies Type Severity Reaction Last Updated Verified No Known Drug Allergies 02/12/14 No Physical Exam Physical Exam Constitutional: Well nourished, mild distress, non-toxic appearance. [] HENT: Normocephalic, atraumatic. Eyes: Legally blind Neck: Normal range of motion, no tenderness, supple, no stridor. [] Cardiovascular:Heart rate regular rhythm, no murmur [] Lungs & Thorax: Bilateral breath sounds clear to auscultation [] Abdomen: Bowel sounds normal, soft, no tenderness, no masses, no pulsatile masses. [] Skin: Warm, dry, no erythema, no rash. [] Back: No tenderness, no CVA tenderness. [] Extremities: No tenderness, no cyanosis, no clubbing, ROM intact, no edema. [] Neurologic: Alert and oriented X 3, no focal deficits noted. [] Psychologic: Affect normal, mood normal. [] Current Patient Data Vital Signs Vital Signs Date Time Temp Pulse Resp B/P (MAP) Pulse Ox O2 Delivery O2 Flow Rate FiO2 10/10/19 16:20 68 10/10/19 15:07 99.0 23 160/77 (104) 97 Room Air 99.0 Lab Values Laboratory Tests Test 10/10/19 15:18 10/10/19 16:10 White Blood Count 5.9 x10^3/uL (4.0-11.0) Red Blood Count 4.33 x10^6/uL (4.30-5.70) Hemoglobin 12.1 g/dL (13.0-17.5) L Hematocrit 36.6 % (39.0-53.0) L Mean Corpuscular Volume 85 fL (79-100) Mean Corpuscular Hemoglobin 28 pg (25-35) Mean Corpuscular Hemoglobin Concent 33 g/dL (31-37) Red Cell Distribution Width 15.3 % (11.5-14.5) H Platelet Count 280 x10^3/uL (140-400) Neutrophils (%) (Auto) 43 % (31-73) Lymphocytes (%) (Auto) 49 % (24-48) H Monocytes (%) (Auto) 7 % (0-9) Eosinophils (%) (Auto) 1 % (0-3) Basophils (%) (Auto) 1 % (0-3) Neutrophils # (Auto) 2.5 x10^3/uL (1.8-7.7) Lymphocytes # (Auto) 2.9 x10^3/uL (1.0-4.8) Monocytes # (Auto) 0.4 x10^3/uL (0.0-1.1) Eosinophils # (Auto) 0.0 x10^3/uL (0.0-0.7) Basophils # (Auto) 0.0 x10^3/uL (0.0-0.2) Sodium Level 140 mmol/L (136-145) Potassium Level 3.8 mmol/L (3.5-5.1) Chloride Level 100 mmol/L (98-107) Carbon Dioxide Level 29 mmol/L (21-32) Anion Gap 11 (6-14) Blood Urea Nitrogen 17 mg/dL (8-26) Creatinine 1.3 mg/dL (0.7-1.3) Estimated GFR (Cockcroft-Gault) 63.5 BUN/Creatinine Ratio 13 (6-20) Glucose Level 306 mg/dL (70-99) H Calcium Level 9.3 mg/dL (8.5-10.1) Magnesium Level 1.8 mg/dL (1.8-2.4) Total Bilirubin 0.6 mg/dL (0.2-1.0) Aspartate Amino Transferase (AST) 17 U/L (15-37) Alanine Aminotransferase (ALT) 28 U/L (16-63) Alkaline Phosphatase 66 U/L (46-116) Troponin I Quantitative < 0.017 ng/mL (0.000-0.055) SJ-Her-N-Type Natriuretic Peptide 158 pg/mL (0-449) Total Protein 7.8 g/dL (6.4-8.2) Albumin 3.1 g/dL (3.4-5.0) L Albumin/Globulin Ratio 0.7 (1.0-1.7) L Urine Collection Type Unknown Urine Color Yellow Urine Clarity Clear Urine pH 6.0 Urine Specific [place] 1.025 Urine Protein Negative mg/dL (NEG-TRACE) Urine Glucose (UA) >=1000 mg/dL (NEG) Urine Ketones (Stick) Negative mg/dL (NEG) Urine Blood Negative (NEG) Urine Nitrite Negative (NEG) Urine Bilirubin Negative (NEG) Urine Urobilinogen Dipstick 0.2 mg/dL (0.2 mg/dL) Urine Leukocyte Esterase Negative (NEG) Urine RBC 0 /HPF (0-2) Urine WBC 0 /HPF (0-4) Urine Bacteria 0 /HPF (0-FEW) Laboratory Tests 10/10/19 15:18 Laboratory Tests 10/10/19 15:18 EKG EKG EKG interpreted by me. EKG at 1513 showed normal sinus rhythm at rest of 68, leftward axis, normal WA and QT intervals, no acute ST and T wave elevation. Radiology/Procedures Radiology/Procedures [facility] [address] [place], [place] [id number] IMAGING REPORT Signed PATIENT: GABI WALKER ACCOUNT: [id number] : 1935 LOCATION: ER AGE: 84 SEX: M EXAM STATUS: PRE ER ORD. PHYSICIAN: LADI HILLIARD MD REASON: Near syncope PROCEDURE: PORTABLE CHEST 1V Exam performed: One view chest. Indication: Syncope Date of Service: 10/10/2019 4:14 PM Comparison: One view chest from 03/22/2016. Single AP upright portable view chest findings: Cardiomediastinal silhouette is within limits of normal. No acute infiltrates, effusion or pneumothorax is detected. The bony structures are normal. Impression: No acute cardiopulmonary process is detected. Electronically signed by: Kalyani Ball MD (10/10/2019 4:38 PM) [id number] DICTATED and SIGNED BY: KALYANI BALL MD DATE: 10/10/19 1638 [facility] [address] [place], [place] [id number] IMAGING REPORT Signed PATIENT: GABI WALKER ACCOUNT: [id number] : 1935 LOCATION: ER AGE: 84 SEX: M EXAM STATUS: PRE ER ORD. PHYSICIAN: LADI HILLIARD MD REASON: Near syncope PROCEDURE: CT HEAD WO CONTRAST CT HEAD WO CONTRAST History: Near syncope Comparison: March 22, 2016 Technique: Noncontrast CT imaging was performed of the head. Exposure: One or more of the following individualized dose reduction techniques were utilized for this examination: 1. Automated exposure control 2. Adjustment of the mA and/or kV according to patient size 3. Use of iterative reconstruction technique. Findings: No acute extra-axial or parenchymal hemorrhage is identified. There is no significant intra-axial mass effect, midline shift, or extra-axial fluid collection. The dennis-white differentiation of the major vascular territories is preserved. Ventricular size is stable, proportionate to sulcal spaces. There is again mild generalized supratentorial atrophy. There is again some scattered ill-defined low-density of the supratentorial parenchyma bilaterally. There is atherosclerotic calcification carotid siphons bilaterally. There is a radiodense object along the anterior surface of the right globe as seen previously. The mastoid air cells and the visualized paranasal sinuses are aerated. No acute calvarial abnormality is identified. Impression: 1. No acute intracranial abnormality is identified. There is again generalized supratentorial atrophy. There is again some scattered ill-defined low-density of the supratentorial parenchyma more commonly due to chronic microvascular ischemic disease in a patient this age. 2. There is again radiodense object along the anterior surface of the right globe. Electronically signed by: Lorie Perales MD (10/10/2019 4:21 PM) [facility] [place] DICTATED and SIGNED BY: LORIE PERALES MD DATE: 10/10/19 1621 Course & Med Decision Making Course & Med Decision Making Pertinent Labs and Imaging studies reviewed. (See chart for details) Evaluation of patient nurse with 84-year-old male patient brought in by EMS because of syncope. Patient was not able to give a good history and no family members presented while he was in ER. [employer] try to contact the patient family and some family member asked her and stated he was not at home at the time of syncope and patient's son was not at home.called 911 but he was not available to talk to the nurse. Patient sleeping in the bed without problem. Labs showed blood sugar of 306 without other abnormal findings. CT showed dementia without acute finding. Patient is legally blind and lives at home. Patient requiring admission for further evaluation and treatment. Discussed with Dr. Levy who is in agreement with admission. Discussed findings and plan with patient and family, who acknowledge understanding and agreement. Dragon Disclaimer Dragon Disclaimer This electronic medical record was generated, in whole or in part, using a voice recognition dictation system. Departure Departure Impression: Primary Impression: Syncope Additional Impressions: Uncontrolled diabetes mellitus Dementia Legally blind Disposition: ADMITTED INPATIENT Admitting Physician: HIMS Condition: STABLE Referrals: MARIA DEL CARMEN NICHOLAS MD (PCP) Problem Qualifiers Primary Impression: Syncope Syncope type: unspecified Qualified Codes: R55 - Syncope and collapse Additional Impressions: Uncontrolled diabetes mellitus Diabetes mellitus type: other specified (including AMIRAH) Glycemic state: with hyperglycemia Qualified Codes: E13.65 - Other specified diabetes mellitus with hyperglycemia Dementia Dementia type: unspecified type Dementia behavioral disturbance: without behavioral disturbance Qualified Codes: F03.90 - Unspecified dementia without behavioral disturbance LADI HILLIARD MD 7, 2020 15:59
--- NOTE | 2019-10-10 16:24 | RAD ---
CT HEAD WO CONTRAST History: Near syncope Comparison: March 22, 2016 Technique: Noncontrast CT imaging was performed of the head. Exposure: One or more of the following individualized dose reduction techniques were utilized for this examination: 1. Automated exposure control 2. Adjustment of the mA and/or kV according to patient size 3. Use of iterative reconstruction technique. Findings: No acute extra-axial or parenchymal hemorrhage is identified. There is no significant intra-axial mass effect, midline shift, or extra-axial fluid collection. The dennis-white differentiation of the major vascular territories is preserved. Ventricular size is stable, proportionate to sulcal spaces. There is again mild generalized supratentorial atrophy. There is again some scattered ill-defined low-density of the supratentorial parenchyma bilaterally. There is atherosclerotic calcification carotid siphons bilaterally. There is a radiodense object along the anterior surface of the right globe as seen previously. The mastoid air cells and the visualized paranasal sinuses are aerated. No acute calvarial abnormality is identified. Impression: 1. No acute intracranial abnormality is identified. There is again generalized supratentorial atrophy. There is again some scattered ill-defined low-density of the supratentorial parenchyma more commonly due to chronic microvascular ischemic disease in a patient this age. 2. There is again radiodense object along the anterior surface of the right globe. Electronically signed by: Donny Perales MD (10/10/2019 4:21 PM) [facility] [place]
[2019-10-10 16:30] LABS: BILIRUBIN,URINE NEGATIVE (NEG); CLARITY,URINE CLEAR; COLOR,URINE YELLOW; NITRITE,URINE NEGATIVE (NEG); PROTEIN,URINE NEGATIVE (NEG-TRACE); UROBILINOGEN,URINE 0.2 mg/dL (0.2 mg/dL)
[2019-10-10 16:37] LABS: BACTERIA,URINE 0 /HPF (0-FEW); RBC,URINE 0 /HPF (0-2); WBC,URINE 0 /HPF (0-4)
--- NOTE | 2019-10-10 16:41 | RAD ---
Exam performed: One view chest. Indication: Syncope Date of Service: 10/10/2019 4:14 PM Comparison: One view chest from 03/22/2016. Single AP upright portable view chest findings: Cardiomediastinal silhouette is within limits of normal. No acute infiltrates, effusion or pneumothorax is detected. The bony structures are normal. Impression: No acute cardiopulmonary process is detected. Electronically signed by: Kalyani Ball MD (10/10/2019 4:38 PM) [id number]
--- NOTE | 2019-10-10 17:30 | PDOC1 ---
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 EMS reported that patient family called 911 with complaint of syncope, however, no one else was present on arrival. Patient had urinated on himself and was confused. He notes he still feels confused and notes his right ankle hurts. He initially thinks he is in his living room, but is redirected. He is scattered with his history and keeps interrupting himself. He tells me his confusion is frustrating and notes he has had a few seizures and a stroke in the past and he feels similar to those times currently. He states he has stopped checking his blood sugar at home and misses some medications because he can't see and notes he can be compliant with meds and insulin when someone can help him with these things. Patient states his is in the hospital at [facility] and tells me he is worried that she was sick when in [place] recently. No family member presented to the emergency room. CT head shows generalized supratentorial atrophy. Labs significant for glucose of 306 and Cr 1.3. Admitted for further care Past Medical History Cardiovascular: HTN, Syncope Pulmonary: No pertinent hx CENTRAL NERVOUS SYSTEM: CVA GI: No pertinent hx Heme/Onc: No pertinent hx Hepatobiliary: No pertinent hx Psych: No pertinent hx Musculoskeletal: Osteoarthritis Rheumatologic: No pertinent hx Infectious disease: No pertinent hx Renal/: Benign prostatic enlarg. Endocrine: Diabetes Past Surgical History Past Surgical History: Other Family History Family History: No Significant Social History Smoke: No ALCOHOL: rare Drugs: None Current Problem List Problem List Problems Medical Problems: (1) Dementia Status: Acute (2) Legally blind Status: Acute (3) Syncope Status: Acute (4) Uncontrolled diabetes mellitus Status: Acute Current Medications Current Medications Active Scripts Active Pyridium (Phenazopyridine Hcl) 200 Mg Tablet 200 Mg PO TID Cipro (Ciprofloxacin Hcl) 500 Mg Tablet 1 Tab PO BID Hydrocodone-Apap 5-325 (Hydrocodone Bit/Acetaminophen) 1 Each Tablet 1 Tab PO PRN Q4HRS PRN Flomax (Tamsulosin Hcl) 0.4 Mg Cap.er.24h 1 Cap PO DAILY Reported Keppra (Levetiracetam) 500 Mg Tablet 1 Tab PO BID Duloxetine Hcl 30 Mg Capsule.dr 30 Mg PO BID Metformin Hcl 1,000 Mg Tablet 1 Tab PO BID Lisinopril-Hctz 20-12.5 Mg Tab (Lisinopril/Hydrochlorothiazide) 1 Each Tablet 1 Tab PO DAILY Norvasc (Amlodipine Besylate) 10 Mg Tablet 10 Mg PO DAILY Flomax (Tamsulosin Hcl) 0.4 Mg Cap.er.24h 1 Cap PO DAILY Januvia (Sitagliptin Phosphate) 100 Mg Tablet 1 Tab PO DAILY Allergies Allergies: Coded Allergies: No Known Drug Allergies (Unverified , 02/12/14) ROS General: YES: Fatigue, Malaise; No: Chills, Night Sweats, Appetite, Other PSYCHOLOGICAL ROS: YES: Disorientation, Memory difficulties; No: Anxiety, Behavioral Disorder, Concentration difficultie, Decreased libido, Depression, Hallucinations, Hostility, Irritablity, Mood Swings, Obsessive thoughts, Physical abuse, Sexual abuse, Sleep disturbances, Suicidal ideation, Other Eyes: Yes Decreased vision; No Blurry vision, No Double vision, No Dry eyes, No Excessive tearing, No Eye Pain, No Itchy Eyes, No Loss of vision, No Photophobia, No Scotomata, No Uses contacts, No Uses glasses, No Other HEENT: No: Heacaches, Visual Changes, Hearing change, Nasal congestion, Nasal discharge, Oral lesions, Sinus pain, Sore Throat, Epistaxis, Sneezing, Snoring, Tinnitus, Vertigo, Vocal changes, Other ALLERGY AND IMMUNOLOGY: No: Hives, Insect Bite Sensitivity, Itchy/Watery Eyes, Nasal Congestion, Post Nasal Drip, Seasonal Allergies, Other Hematological and Lymphatic: No: Bleeding Problems, Blood Clots, Blood Transfusions, Brusing, Night Sweats, Pallor, Swollen Lymph Nodes, Other ENDOCRINE: No: Breast Changes, Galactorrhea, Hair Pattern Changes, Hot Flashes, Malaise/lethargy, Mood Swings, Palpitations, Polydipsia/polyuria, Skin Changes, Temperature Intolerance, Unexpected Weight Changes, Other Breast: No New/Changing Breast Lumps, No Nipple changes, No Nipple discharge, No Other Respiratory: No: Cough, Hemoptysis, Orthopnea, Pleuritic Pain, Shortness of breath, SOB with excertion, Sputum Changes, Stridor, Tachypnea, Wheezing, Other Cardiovascular: No Chest Pain, No Palpitations, No Orthopnea, No Paroxysmal Noc. Dyspnea, No Edema, No Lt Headedness, No Other Gastrointestinal: No Nausea, No Vomiting, No Abdominal Pain, No Diarrhea, No Constipation, No Melena, No Hematochezia, No Other Genitourinary: No Dysuria, No Frequency, No Incontinence, No Hematuria, No Retention, No Discharge, No Urgency, No Pain, No Flank Pain, No Other, No , No , No , No , No , No , No Musculoskeletal: Yes Joint Pain; No Gait Disturbance, No Joint Stiffness, No Joint Swelling, No Muscle Pain, No Muscular Weakness, No Pain In:, No Swelling In:, No Other Neurological: No Behavorial Changes, No Bowel/Bladder ControlChng, No Confusion, No Dizziness, No Gait Disturbance, No Headaches, No Impaired Coord/balance, No Memory Loss, No Numbness/Tingling, No Seizures, No Speech Problems, No Tremors, No Visual Changes, No Weakness, No Other Skin: No Dry Skin, No Eczema, No Hair Changes, No Lumps, No Mole Changes, No Mottling, No Nail Changes, No Pruritus, No Rash, No Skin Lesion Changes, No Other, No Acne Physical Exam General: Alert, Cooperative, No acute distress HEENT: Atraumatic, PERRLA, EOMI, Mucous membr. moist/pink Lungs: Clear to auscultation, Normal air movement Heart: S1S2, RRR, no thrills, no rubs, no gallops, no murmurs Abdomen: Normal bowel sounds, Soft, No tenderness, No hepatosplenomegaly, No masses Extremities: Other (Swelling of right ankle and lateral malleolus tenderness) Skin: No rashes, No breakdown, No significant lesion Neuro: Normal speech, Strength at 5/5 X4 ext, Normal tone, Sensation intact, Cranial nerves 3-12 NL, Reflexes 2+ Psych/Mental Status: Other (Confused as before) Vitals Vitals Vital Signs Date Time Temp Pulse Resp B/P (MAP) Pulse Ox O2 Delivery O2 Flow Rate FiO2 10/10/19 16:20 68 10/10/19 15:07 99.0 23 160/77 (104) 97 Room Air 99.0 Labs Labs Laboratory Tests Test 10/10/19 15:18 10/10/19 16:10 White Blood Count 5.9 x10^3/uL (4.0-11.0) Red Blood Count 4.33 x10^6/uL (4.30-5.70) Hemoglobin 12.1 g/dL (13.0-17.5) Hematocrit 36.6 % (39.0-53.0) Mean Corpuscular Volume 85 fL (79-100) Mean Corpuscular Hemoglobin 28 pg (25-35) Mean Corpuscular Hemoglobin Concent 33 g/dL (31-37) Red Cell Distribution Width 15.3 % (11.5-14.5) Platelet Count 280 x10^3/uL (140-400) Neutrophils (%) (Auto) 43 % (31-73) Lymphocytes (%) (Auto) 49 % (24-48) Monocytes (%) (Auto) 7 % (0-9) Eosinophils (%) (Auto) 1 % (0-3) Basophils (%) (Auto) 1 % (0-3) Neutrophils # (Auto) 2.5 x10^3/uL (1.8-7.7) Lymphocytes # (Auto) 2.9 x10^3/uL (1.0-4.8) Monocytes # (Auto) 0.4 x10^3/uL (0.0-1.1) Eosinophils # (Auto) 0.0 x10^3/uL (0.0-0.7) Basophils # (Auto) 0.0 x10^3/uL (0.0-0.2) Sodium Level 140 mmol/L (136-145) Potassium Level 3.8 mmol/L (3.5-5.1) Chloride Level 100 mmol/L (98-107) Carbon Dioxide Level 29 mmol/L (21-32) Anion Gap 11 (6-14) Blood Urea Nitrogen 17 mg/dL (8-26) Creatinine 1.3 mg/dL (0.7-1.3) Estimated GFR (Cockcroft-Gault) 63.5 BUN/Creatinine Ratio 13 (6-20) Glucose Level 306 mg/dL (70-99) Calcium Level 9.3 mg/dL (8.5-10.1) Magnesium Level 1.8 mg/dL (1.8-2.4) Total Bilirubin 0.6 mg/dL (0.2-1.0) Aspartate Amino Transf (AST/SGOT) 17 U/L (15-37) Alanine Aminotransferase (ALT/SGPT) 28 U/L (16-63) Alkaline Phosphatase 66 U/L (46-116) Troponin I Quantitative < 0.017 ng/mL (0.000-0.055) LF-Hhs-O-Type Natriuretic Peptide 158 pg/mL (0-449) Total Protein 7.8 g/dL (6.4-8.2) Albumin 3.1 g/dL (3.4-5.0) Albumin/Globulin Ratio 0.7 (1.0-1.7) Urine Collection Type Unknown Urine Color Yellow Urine Clarity Clear Urine pH 6.0 Urine Specific Bennett 1.025 Urine Protein Negative mg/dL (NEG-TRACE) Urine Glucose (UA) >=1000 mg/dL (NEG) Urine Ketones (Stick) Negative mg/dL (NEG) Urine Blood Negative (NEG) Urine Nitrite Negative (NEG) Urine Bilirubin Negative (NEG) Urine Urobilinogen Dipstick 0.2 mg/dL (0.2 mg/dL) Urine Leukocyte Esterase Negative (NEG) Urine RBC 0 /HPF (0-2) Urine WBC 0 /HPF (0-4) Urine Bacteria 0 /HPF (0-FEW) Laboratory Tests Test 10/10/19 15:18 10/10/19 16:10 White Blood Count 5.9 x10^3/uL (4.0-11.0) Red Blood Count 4.33 x10^6/uL (4.30-5.70) Hemoglobin 12.1 g/dL (13.0-17.5) Hematocrit 36.6 % (39.0-53.0) Mean Corpuscular Volume 85 fL (79-100) Mean Corpuscular Hemoglobin 28 pg (25-35) Mean Corpuscular Hemoglobin Concent 33 g/dL (31-37) Red Cell Distribution Width 15.3 % (11.5-14.5) Platelet Count 280 x10^3/uL (140-400) Neutrophils (%) (Auto) 43 % (31-73) Lymphocytes (%) (Auto) 49 % (24-48) Monocytes (%) (Auto) 7 % (0-9) Eosinophils (%) (Auto) 1 % (0-3) Basophils (%) (Auto) 1 % (0-3) Neutrophils # (Auto) 2.5 x10^3/uL (1.8-7.7) Lymphocytes # (Auto) 2.9 x10^3/uL (1.0-4.8) Monocytes # (Auto) 0.4 x10^3/uL (0.0-1.1) Eosinophils # (Auto) 0.0 x10^3/uL (0.0-0.7) Basophils # (Auto) 0.0 x10^3/uL (0.0-0.2) Sodium Level 140 mmol/L (136-145) Potassium Level 3.8 mmol/L (3.5-5.1) Chloride Level 100 mmol/L (98-107) Carbon Dioxide Level 29 mmol/L (21-32) Anion Gap 11 (6-14) Blood Urea Nitrogen 17 mg/dL (8-26) Creatinine 1.3 mg/dL (0.7-1.3) Estimated GFR (Cockcroft-Gault) 63.5 BUN/Creatinine Ratio 13 (6-20) Glucose Level 306 mg/dL (70-99) Calcium Level 9.3 mg/dL (8.5-10.1) Magnesium Level 1.8 mg/dL (1.8-2.4) Total Bilirubin 0.6 mg/dL (0.2-1.0) Aspartate Amino Transf (AST/SGOT) 17 U/L (15-37) Alanine Aminotransferase (ALT/SGPT) 28 U/L (16-63) Alkaline Phosphatase 66 U/L (46-116) Troponin I Quantitative < 0.017 ng/mL (0.000-0.055) WC-Qdh-J-Type Natriuretic Peptide 158 pg/mL (0-449) Total Protein 7.8 g/dL (6.4-8.2) Albumin 3.1 g/dL (3.4-5.0) Albumin/Globulin Ratio 0.7 (1.0-1.7) Urine Collection Type Unknown Urine Color Yellow Urine Clarity Clear Urine pH 6.0 Urine Specific Bennett 1.025 Urine Protein Negative mg/dL (NEG-TRACE) Urine Glucose (UA) >=1000 mg/dL (NEG) Urine Ketones (Stick) Negative mg/dL (NEG) Urine Blood Negative (NEG) Urine Nitrite Negative (NEG) Urine Bilirubin Negative (NEG) Urine Urobilinogen Dipstick 0.2 mg/dL (0.2 mg/dL) Urine Leukocyte Esterase Negative (NEG) Urine RBC 0 /HPF (0-2) Urine WBC 0 /HPF (0-4) Urine Bacteria 0 /HPF (0-FEW) Images Images CT head - No acute extra-axial or parenchymal hemorrhage is identified. There is no significant intra-axial mass effect, midline shift, or extra-axial fluid collection. The dennis-white differentiation of the major vascular territories is preserved. Ventricular size is stable, proportionate to sulcal spaces. There is again mild generalized supratentorial atrophy. There is again some scattered ill-defined low-density of the supratentorial parenchyma bilaterally. There is atherosclerotic calcification carotid siphons bilaterally. There is a radiodense object along the anterior surface of the right globe as seen previously. The mastoid air cells and the visualized paranasal sinuses are aerated. No acute calvarial abnormality is identified. Impression: 1. No acute intracranial abnormality is identified. There is again generalized supratentorial atrophy. There is again some scattered ill-defined low-density of the supratentorial parenchyma more commonly due to chronic microvascular ischemic disease in a patient this age. 2. There is again radiodense object along the anterior surface of the right g lobe. VTE Prophylaxis Ordered VTE Prophylaxis Devices: Yes VTE Pharmacological Prophylaxi: Yes Assessment/Plan Assessment/Plan A/P: Syncope - found down by EMS when arrived. He does not recall. This could be seizure or cardiogenic or vasovagal. Telemetry, echo, carotid doppler Acute encephalopathy - metabolic. could be post-ictal. Will monitor. No infectious signs Right ankle pain and swelling - will get X-ray. He cannot bear weight today. Definitely sprained, possibly fractured Weakness - could be post-ictal state. 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
[2019-10-10] MEDS ORDERED: HYDROcodone/APAP 5/325MG 1 TAB TABLET PO PRN (18:15)
[2019-10-10] MEDS ORDERED: DEXTROSE 50% 25 GM / 50ML DISP.SYRIN. IV PRN (18:15)
--- NOTE | 2019-10-10 19:03 | RAD ---
Exam: Right ankle 3 views INDICATION: Fall, syncope, severe pain TECHNIQUE: Frontal, lateral and oblique views of the right ankle Comparisons: None FINDINGS: Diffuse soft tissue swelling surrounding the ankle. Bone mineralization is normal. No acute or healed fractures. Joint spaces are well-maintained. IMPRESSION: Diffuse soft tissue swelling surrounding the ankle without underlying osseous abnormality identified. Electronically signed by: Bharati Cagle MD (10/10/2019 7:00 PM) [id number]
[2019-10-10] MEDS ORDERED: ONDANSETRON PF 4 MG/2 ML VIAL. IV PRN (20:00)
[2019-10-10] MEDS ORDERED: ACETAMINOPHEN 325 MG TABLET. PO PRN (20:00)
[2019-10-10] MEDS: ENOXAPARIN 30 MG/0.3 ML SYRINGE. SQ SCH (20:35)
[2019-10-10] MEDS: DULoxetine HCL 30 MG CAPSULE.DR PO SCH (20:35)
[2019-10-10] MEDS: levETIRAcetam 500 MG TABLET PO SCH (20:36)
[2019-10-10 20:45] VITALS: BP 146/82
[2019-10-10] MEDS: INSULIN LISPRO 300 UNITS/3 ML VIAL. SQ SCH (21:00)
[2019-10-10] MEDS: INSULIN GLARGINE SYRINGE. SQ SCH (22:18)
[2019-10-10] MEDS: HYDROcodone/APAP 5/325MG 1 TAB TABLET PO PRN (22:44)
--- NOTE | 2019-10-10 23:23 | EKG ---
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
[2019-10-11 03:20] VITALS: BP 146/70
--- NOTE | 2019-10-11 05:37 | RAD ---
Duplex ultrasound carotid arteries. HISTORY: Syncope Duplex ultrasound was used to evaluate the carotid arteries. Real-time imaging, color flow imaging and Doppler were utilized. There is mild echogenic plaque at the carotid bifurcation on the right side. Peak velocity in the right internal carotid artery was 80 cm/s with an end-diastolic velocity of 15 cm/s and a systolic velocity ratio of 0.76. There is antegrade flow in the right vertebral. Evaluation of the left carotid artery shows echogenic plaque at the origin the right internal carotid artery with mild narrowing. Peak velocity in the left internal carotid artery was 88 cm/s with an end-diastolic velocity of 20 cm/s and a systolic velocity ratio of 1.3. There is antegrade flow in the left vertebral. IMPRESSION: 1. Mild plaque the carotid bifurcations more on the left than on the right but without hemodynamically significant stenosis. 2. Antegrade flow in each vertebral. PQRS Compliance Statement Stenosis calculations for carotid ultrasound studies are derived from validated velocity criteria which are known to correlate with the NASCET methodology. Electronically signed by: Stan Cervantes MD (10/11/2019 5:33 AM) [id number]
[2019-10-11 07:30] LABS: CREATININE 1.1 mg/dL (0.7-1.3); POTASSIUM 3.8 mmol/L (3.5-5.1)
[2019-10-11] MEDS: INSULIN LISPRO 300 UNITS/3 ML VIAL. SQ SCH ×4 (07:30→21:27)
[2019-10-11 07:40] LABS: BASO % 0 % (0-3); EOS # 0.1 x10^3/uL (0.0-0.7); EOS % 1 % (0-3); HEMATOCRIT 35.8 % (39.0-53.0); HEMOGLOBIN 11.8 g/dL (13.0-17.5); LYMPH # 5.1 x10^3/uL (1.0-4.8); LYMPH % 59 % (24-48); MEAN CORPUSCULAR HEMOGLOBIN 28 pg (25-35); MEAN CORPUSCULAR HGB CONC 33 g/dL (31-37); MEAN CORPUSCULAR VOLUME 84 fL (79-100); MONO # 0.8 x10^3/uL (0.0-1.1); MONO % 9 % (0-9); NEUT # 2.7 x10^3/uL (1.8-7.7); NEUT % 32 % (31-73); PLATELET COUNT 262 x10^3/uL (140-400); RED BLOOD COUNT 4.24 x10^6/uL (4.30-5.70); WHITE BLOOD COUNT 8.6 x10^3/uL (4.0-11.0)
[2019-10-11 07:59] VITALS: BP 155/78
[2019-10-11] MEDS: TAMSULOSIN 0.4 MG CAP.ER.24H. PO SCH (10:04)
[2019-10-11] MEDS: DULoxetine HCL 30 MG CAPSULE.DR PO SCH ×2 (10:04→21:21)
[2019-10-11] MEDS: LINAGLIPTIN 5 MG TABLET PO SCH (10:05)
[2019-10-11] MEDS: levETIRAcetam 500 MG TABLET PO SCH ×2 (10:05→21:21)
[2019-10-11] MEDS: amLODIPine BESYLATE 10 MG TABLET PO SCH (10:05)
--- NOTE | 2019-10-11 11:05 | PDOC ---
PROGRESS NOTES Chief Complaint Chief Complaint A/P: Syncope - found down by EMS when arrived. He does not recall. This could be seizure or cardiogenic or vasovagal. Telemetry, echo, carotid doppler Acute encephalopathy - metabolic. could be post-ictal. Will monitor. No infectious signs Right ankle pain and swelling - X-ray r/o fracture. He cannot bear weight today. Definitely sprained. PT recs Weakness - could be post-ictal state. 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 EMS reported that patient family called 911 with complaint of syncope, however, no one else was present on arrival. Patient had urinated on himself and was confused. He notes he still feels confused and notes his right ankle hurts. He initially thinks he is in his living room, but is redirected. He is scattered with his history and keeps interrupting himself. He tells me his confusion is frustrating and notes he has had a few seizures and a stroke in the past and he feels similar to those times currently. He states he has stopped checking his blood sugar at home and misses some medications because he can't see and notes he can be compliant with meds and insulin when someone can help him with these things. Patient states his is in the hospital at [facility] and tells me he is worried that she was sick when in [place] recently. No family member presented to the emergency room. CT head shows generalized supratentorial atrophy. Labs significant for glucose of 306 and Cr 1.3. Carotid doppler - 1. Mild plaque the carotid bifurcations more on the left than on the right but without hemodynamically significant stenosis. 2. Antegrade flow in each vertebral. He is feeling better today, but unable to bear weight on his right ankle. No NVD. No CP or SOB. Vitals Vitals Vital Signs Date Time Temp Pulse Resp B/P (MAP) Pulse Ox O2 Delivery O2 Flow Rate FiO2 10/11/19 10:05 57 155/78 10/11/19 07:59 98.7 16 97 Room Air 98.7 Physical Exam General: Alert, Cooperative, No acute distress Lungs: Clear Abdomen: Normal bowel sounds, Soft, No tenderness, No hepatosplenomegaly, No masses Extremities: Other (Swelling of right ankle and lateral malleolus tenderness) Skin: No rashes, No breakdown, No significant lesion Labs LABS Laboratory Tests Test 10/10/19 15:18 10/10/19 16:10 10/10/19 20:48 10/11/19 07:00 White Blood Count 5.9 x10^3/uL (4.0-11.0) 8.6 x10^3/uL (4.0-11.0) Red Blood Count 4.33 x10^6/uL (4.30-5.70) 4.24 x10^6/uL (4.30-5.70) Hemoglobin 12.1 g/dL (13.0-17.5) 11.8 g/dL (13.0-17.5) Hematocrit 36.6 % (39.0-53.0) 35.8 % (39.0-53.0) Mean Corpuscular Volume 85 fL (79-100) 84 fL (79-100) Mean Corpuscular Hemoglobin 28 pg (25-35) 28 pg (25-35) Mean Corpuscular Hemoglobin Concent 33 g/dL (31-37) 33 g/dL (31-37) Red Cell Distribution Width 15.3 % (11.5-14.5) 15.0 % (11.5-14.5) Platelet Count 280 x10^3/uL (140-400) 262 x10^3/uL (140-400) Neutrophils (%) (Auto) 43 % (31-73) 32 % (31-73) Lymphocytes (%) (Auto) 49 % (24-48) 59 % (24-48) Monocytes (%) (Auto) 7 % (0-9) 9 % (0-9) Eosinophils (%) (Auto) 1 % (0-3) 1 % (0-3) Basophils (%) (Auto) 1 % (0-3) 0 % (0-3) Neutrophils # (Auto) 2.5 x10^3/uL (1.8-7.7) 2.7 x10^3/uL (1.8-7.7) Lymphocytes # (Auto) 2.9 x10^3/uL (1.0-4.8) 5.1 x10^3/uL (1.0-4.8) Monocytes # (Auto) 0.4 x10^3/uL (0.0-1.1) 0.8 x10^3/uL (0.0-1.1) Eosinophils # (Auto) 0.0 x10^3/uL (0.0-0.7) 0.1 x10^3/uL (0.0-0.7) Basophils # (Auto) 0.0 x10^3/uL (0.0-0.2) 0.0 x10^3/uL (0.0-0.2) Sodium Level 140 mmol/L (136-145) 139 mmol/L (136-145) Potassium Level 3.8 mmol/L (3.5-5.1) 3.8 mmol/L (3.5-5.1) Chloride Level 100 mmol/L (98-107) 104 mmol/L (98-107) Carbon Dioxide Level 29 mmol/L (21-32) 31 mmol/L (21-32) Anion Gap 11 (6-14) 4 (6-14) Blood Urea Nitrogen 17 mg/dL (8-26) 17 mg/dL (8-26) Creatinine 1.3 mg/dL (0.7-1.3) 1.1 mg/dL (0.7-1.3) Estimated GFR (Cockcroft-Gault) 63.5 77.0 BUN/Creatinine Ratio 13 (6-20) Glucose Level 306 mg/dL (70-99) 102 mg/dL (70-99) Calcium Level 9.3 mg/dL (8.5-10.1) 9.0 mg/dL (8.5-10.1) Magnesium Level 1.8 mg/dL (1.8-2.4) Total Bilirubin 0.6 mg/dL (0.2-1.0) Aspartate Amino Transf (AST/SGOT) 17 U/L (15-37) Alanine Aminotransferase (ALT/SGPT) 28 U/L (16-63) Alkaline Phosphatase 66 U/L (46-116) Troponin I Quantitative < 0.017 ng/mL (0.000-0.055) LZ-Zxr-M-Type Natriuretic Peptide 158 pg/mL (0-449) Total Protein 7.8 g/dL (6.4-8.2) Albumin 3.1 g/dL (3.4-5.0) Albumin/Globulin Ratio 0.7 (1.0-1.7) Urine Collection Type Unknown Urine Color Yellow Urine Clarity Clear Urine pH 6.0 Urine Specific Sedan 1.025 Urine Protein Negative mg/dL (NEG-TRACE) Urine Glucose (UA) >=1000 mg/dL (NEG) Urine Ketones (Stick) Negative mg/dL (NEG) Urine Blood Negative (NEG) Urine Nitrite Negative (NEG) Urine Bilirubin Negative (NEG) Urine Urobilinogen Dipstick 0.2 mg/dL (0.2 mg/dL) Urine Leukocyte Esterase Negative (NEG) Urine RBC 0 /HPF (0-2) Urine WBC 0 /HPF (0-4) Urine Bacteria 0 /HPF (0-FEW) Glucose (Fingerstick) 133 mg/dL (70-99) Test 10/11/19 08:02 Glucose (Fingerstick) 100 mg/dL (70-99) Assessment and Plan Assessmemt and Plan Problems Medical Problems: (1) Dementia Status: Acute (2) Legally blind Status: Acute (3) Syncope Status: Acute (4) Uncontrolled diabetes mellitus Status: Acute Comment Review of Relevant I have reviewed the following items maira (where applicable) has been applied. Labs Laboratory Tests Test 10/10/19 15:18 10/10/19 16:10 10/10/19 20:48 10/11/19 07:00 White Blood Count 5.9 x10^3/uL (4.0-11.0) 8.6 x10^3/uL (4.0-11.0) Red Blood Count 4.33 x10^6/uL (4.30-5.70) 4.24 x10^6/uL (4.30-5.70) Hemoglobin 12.1 g/dL (13.0-17.5) 11.8 g/dL (13.0-17.5) Hematocrit 36.6 % (39.0-53.0) 35.8 % (39.0-53.0) Mean Corpuscular Volume 85 fL (79-100) 84 fL (79-100) Mean Corpuscular Hemoglobin 28 pg (25-35) 28 pg (25-35) Mean Corpuscular Hemoglobin Concent 33 g/dL (31-37) 33 g/dL (31-37) Red Cell Distribution Width 15.3 % (11.5-14.5) 15.0 % (11.5-14.5) Platelet Count 280 x10^3/uL (140-400) 262 x10^3/uL (140-400) Neutrophils (%) (Auto) 43 % (31-73) 32 % (31-73) Lymphocytes (%) (Auto) 49 % (24-48) 59 % (24-48) Monocytes (%) (Auto) 7 % (0-9) 9 % (0-9) Eosinophils (%) (Auto) 1 % (0-3) 1 % (0-3) Basophils (%) (Auto) 1 % (0-3) 0 % (0-3) Neutrophils # (Auto) 2.5 x10^3/uL (1.8-7.7) 2.7 x10^3/uL (1.8-7.7) Lymphocytes # (Auto) 2.9 x10^3/uL (1.0-4.8) 5.1 x10^3/uL (1.0-4.8) Monocytes # (Auto) 0.4 x10^3/uL (0.0-1.1) 0.8 x10^3/uL (0.0-1.1) Eosinophils # (Auto) 0.0 x10^3/uL (0.0-0.7) 0.1 x10^3/uL (0.0-0.7) Basophils # (Auto) 0.0 x10^3/uL (0.0-0.2) 0.0 x10^3/uL (0.0-0.2) Sodium Level 140 mmol/L (136-145) 139 mmol/L (136-145) Potassium Level 3.8 mmol/L (3.5-5.1) 3.8 mmol/L (3.5-5.1) Chloride Level 100 mmol/L (98-107) 104 mmol/L (98-107) Carbon Dioxide Level 29 mmol/L (21-32) 31 mmol/L (21-32) Anion Gap 11 (6-14) 4 (6-14) Blood Urea Nitrogen 17 mg/dL (8-26) 17 mg/dL (8-26) Creatinine 1.3 mg/dL (0.7-1.3) 1.1 mg/dL (0.7-1.3) Estimated GFR (Cockcroft-Gault) 63.5 77.0 BUN/Creatinine Ratio 13 (6-20) Glucose Level 306 mg/dL (70-99) 102 mg/dL (70-99) Calcium Level 9.3 mg/dL (8.5-10.1) 9.0 mg/dL (8.5-10.1) Magnesium Level 1.8 mg/dL (1.8-2.4) Total Bilirubin 0.6 mg/dL (0.2-1.0) Aspartate Amino Transf (AST/SGOT) 17 U/L (15-37) Alanine Aminotransferase (ALT/SGPT) 28 U/L (16-63) Alkaline Phosphatase 66 U/L (46-116) Troponin I Quantitative < 0.017 ng/mL (0.000-0.055) ZH-Jlo-A-Type Natriuretic Peptide 158 pg/mL (0-449) Total Protein 7.8 g/dL (6.4-8.2) Albumin 3.1 g/dL (3.4-5.0) Albumin/Globulin Ratio 0.7 (1.0-1.7) Urine Collection Type Unknown Urine Color Yellow Urine Clarity Clear Urine pH 6.0 Urine Specific Sedan 1.025 Urine Protein Negative mg/dL (NEG-TRACE) Urine Glucose (UA) >=1000 mg/dL (NEG) Urine Ketones (Stick) Negative mg/dL (NEG) Urine Blood Negative (NEG) Urine Nitrite Negative (NEG) Urine Bilirubin Negative (NEG) Urine Urobilinogen Dipstick 0.2 mg/dL (0.2 mg/dL) Urine Leukocyte Esterase Negative (NEG) Urine RBC 0 /HPF (0-2) Urine WBC 0 /HPF (0-4) Urine Bacteria 0 /HPF (0-FEW) Glucose (Fingerstick) 133 mg/dL (70-99) Test 10/11/19 08:02 Glucose (Fingerstick) 100 mg/dL (70-99) Laboratory Tests Test 10/10/19 15:18 10/10/19 16:10 10/10/19 20:48 10/11/19 07:00 White Blood Count 5.9 x10^3/uL (4.0-11.0) 8.6 x10^3/uL (4.0-11.0) Red Blood Count 4.33 x10^6/uL (4.30-5.70) 4.24 x10^6/uL (4.30-5.70) Hemoglobin 12.1 g/dL (13.0-17.5) 11.8 g/dL (13.0-17.5) Hematocrit 36.6 % (39.0-53.0) 35.8 % (39.0-53.0) Mean Corpuscular Volume 85 fL (79-100) 84 fL (79-100) Mean Corpuscular Hemoglobin 28 pg (25-35) 28 pg (25-35) Mean Corpuscular Hemoglobin Concent 33 g/dL (31-37) 33 g/dL (31-37) Red Cell Distribution Width 15.3 % (11.5-14.5) 15.0 % (11.5-14.5) Platelet Count 280 x10^3/uL (140-400) 262 x10^3/uL (140-400) Neutrophils (%) (Auto) 43 % (31-73) 32 % (31-73) Lymphocytes (%) (Auto) 49 % (24-48) 59 % (24-48) Monocytes (%) (Auto) 7 % (0-9) 9 % (0-9) Eosinophils (%) (Auto) 1 % (0-3) 1 % (0-3) Basophils (%) (Auto) 1 % (0-3) 0 % (0-3) Neutrophils # (Auto) 2.5 x10^3/uL (1.8-7.7) 2.7 x10^3/uL (1.8-7.7) Lymphocytes # (Auto) 2.9 x10^3/uL (1.0-4.8) 5.1 x10^3/uL (1.0-4.8) Monocytes # (Auto) 0.4 x10^3/uL (0.0-1.1) 0.8 x10^3/uL (0.0-1.1) Eosinophils # (Auto) 0.0 x10^3/uL (0.0-0.7) 0.1 x10^3/uL (0.0-0.7) Basophils # (Auto) 0.0 x10^3/uL (0.0-0.2) 0.0 x10^3/uL (0.0-0.2) Sodium Level 140 mmol/L (136-145) 139 mmol/L (136-145) Potassium Level 3.8 mmol/L (3.5-5.1) 3.8 mmol/L (3.5-5.1) Chloride Level 100 mmol/L (98-107) 104 mmol/L (98-107) Carbon Dioxide Level 29 mmol/L (21-32) 31 mmol/L (21-32) Anion Gap 11 (6-14) 4 (6-14) Blood Urea Nitrogen 17 mg/dL (8-26) 17 mg/dL (8-26) Creatinine 1.3 mg/dL (0.7-1.3) 1.1 mg/dL (0.7-1.3) Estimated GFR (Cockcroft-Gault) 63.5 77.0 BUN/Creatinine Ratio 13 (6-20) Glucose Level 306 mg/dL (70-99) 102 mg/dL (70-99) Calcium Level 9.3 mg/dL (8.5-10.1) 9.0 mg/dL (8.5-10.1) Magnesium Level 1.8 mg/dL (1.8-2.4) Total Bilirubin 0.6 mg/dL (0.2-1.0) Aspartate Amino Transf (AST/SGOT) 17 U/L (15-37) Alanine Aminotransferase (ALT/SGPT) 28 U/L (16-63) Alkaline Phosphatase 66 U/L (46-116) Troponin I Quantitative < 0.017 ng/mL (0.000-0.055) LT-Yyv-H-Type Natriuretic Peptide 158 pg/mL (0-449) Total Protein 7.8 g/dL (6.4-8.2) Albumin 3.1 g/dL (3.4-5.0) Albumin/Globulin Ratio 0.7 (1.0-1.7) Urine Collection Type Unknown Urine Color Yellow Urine Clarity Clear Urine pH 6.0 Urine Specific Sedan 1.025 Urine Protein Negative mg/dL (NEG-TRACE) Urine Glucose (UA) >=1000 mg/dL (NEG) Urine Ketones (Stick) Negative mg/dL (NEG) Urine Blood Negative (NEG) Urine Nitrite Negative (NEG) Urine Bilirubin Negative (NEG) Urine Urobilinogen Dipstick 0.2 mg/dL (0.2 mg/dL) Urine Leukocyte Esterase Negative (NEG) Urine RBC 0 /HPF (0-2) Urine WBC 0 /HPF (0-4) Urine Bacteria 0 /HPF (0-FEW) Glucose (Fingerstick) 133 mg/dL (70-99) Test 10/11/19 08:02 Glucose (Fingerstick) 100 mg/dL (70-99) Medications Current Medications Amlodipine Besylate (Norvasc) 10 mg DAILY PO Last administered on 10/11/19 10:05; Start 10/11/19 at 09:00 Duloxetine HCl (Cymbalta) 30 mg BID PO Last administered on 10/11/19 10:04; Start 10/10/19 at 21:00 Acetaminophen/ Hydrocodone Bitart (Lortab 5/325) 1 tab PRN Q4HRS PRN PO MILD PAIN 1-3 Last administered on 10/10/19at 20:36; Start 10/10/19 at 18:15; Stop 10/10/19 at 22:23; Status DC Levetiracetam (Keppra) 500 mg BID PO Last administered on 10/11/19 10:05; Start 10/10/19 at 21:00 Tamsulosin HCl (Flomax) 0.4 mg DAILY PO Last administered on 10/11/19 10:04; Start 10/11/19 at 09:00 Linagliptin (Tradjenta) 5 mg DAILY PO Last administered on 10/11/19 10:05; Start 10/11/19 at 09:00 Insulin Glargine (Lantus Syringe) 8 unit QHS SQ Last administered on 10/10/19at 22:18; Start 10/10/19 at 21:00 Insulin Human Lispro (HumaLOG) 0-5 UNITS TIDACHC SQ ; Start 10/10/19 at 21:00 Dextrose (Dextrose 50%-Water Syringe) 12.5 gm PRN Q15MIN PRN IV SEE COMMENTS; Start 10/10/19 at 18:15 Enoxaparin Sodium (Lovenox 30mg Syringe) 30 mg Q24H SQ Last administered on 10/10/19at 20:35; Start 10/10/19 at 21:00 Ondansetron HCl (Zofran) 4 mg PRN Q4HRS PRN IV NAUSEA/VOMITING; Start 10/10/19 at 20:00 Acetaminophen (Tylenol) 650 mg PRN Q6HRS PRN PO TEMP OVER 100.4F OR MILD PAIN; Start 10/10/19 at 20:00 Acetaminophen/ Hydrocodone Bitart (Lortab 5/325) 2 tab PRN Q4HRS PRN PO MILD PAIN 1-3 Last administered on 10/10/19at 22:44; Start 10/10/19 at 22:30 Active Scripts Active Pyridium (Phenazopyridine Hcl) 200 Mg Tablet 200 Mg PO TID Cipro (Ciprofloxacin Hcl) 500 Mg Tablet 1 Tab PO BID Hydrocodone-Apap 5-325 (Hydrocodone Bit/Acetaminophen) 1 Each Tablet 1 Tab PO PRN Q4HRS PRN Flomax (Tamsulosin Hcl) 0.4 Mg Cap.er.24h 1 Cap PO DAILY Reported Keppra (Levetiracetam) 500 Mg Tablet 1 Tab PO BID Duloxetine Hcl 30 Mg Capsule.dr 30 Mg PO BID Metformin Hcl 1,000 Mg Tablet 1 Tab PO BID Lisinopril-Hctz 20-12.5 Mg Tab (Lisinopril/Hydrochlorothiazide) 1 Each Tablet 1 Tab PO DAILY Norvasc (Amlodipine Besylate) 10 Mg Tablet 10 Mg PO DAILY Flomax (Tamsulosin Hcl) 0.4 Mg Cap.er.24h 1 Cap PO DAILY Januvia (Sitagliptin Phosphate) 100 Mg Tablet 1 Tab PO DAILY Vitals/I & O Vital Sign - Last 24 Hours 10/10/19 10/10/19 10/10/19 10/10/19 15:07 16:20 16:48 17:18 Temp 99.0 99.0 Pulse 84 68 62 65 Resp 23 19 14 B/P (MAP) 160/77 (104) Pulse Ox 97 100 O2 Delivery Room Air 10/10/19 10/10/19 10/10/19 10/10/19 17:48 18:18 18:21 18:48 Pulse 67 69 66 71 Resp 16 18 27 Pulse Ox 98 98 98 10/10/19 10/10/19 10/10/19 10/10/19 19:18 20:00 20:36 20:45 Temp 98.0 98.0 Pulse 64 61 Resp 22 18 18 B/P (MAP) 146/82 (103) Pulse Ox 98 98 98 O2 Delivery Room Air Room Air Room Air 10/10/19 10/10/19 10/11/19 10/11/19 22:44 23:59 03:20 07:59 Temp 98.4 98.7 98.4 98.7 Pulse 54 57 Resp 16 16 18 16 B/P (MAP) 146/70 (95) 155/78 (103) Pulse Ox 98 98 98 97 O2 Delivery Room Air Room Air Room Air Room Air 10/11/19 10:05 Pulse 57 B/P (MAP) 155/78 Intake and Output 10/10/19 10/10/19 10/11/19 15:00 23:00 07:00 Intake Total 0 ml Output Total 300 ml Balance -300 ml NAVDEEP LIANG MD Oct 11, 2019 11:04
[2019-10-11 11:59] VITALS: BP 146/74
[2019-10-11 15:59] VITALS: BP 134/89
--- NOTE | 2019-10-11 17:10 | NUR ---
Social work needs: pt's family had extensive discussion with RN re: pt's needs after hospitalization. They have concern about pt being able to care for himself at home as he is legally blind and hard of hearing. Pt's sister stated there is a summer child caregiver at the home, but he has not been adequately taking care of the pt. The pt's son has disabillities and unable to care for the pt. Pt's sister is recommending the patient have home health to help with ADLs. The pt's is currently in the ICU in another facility and does not feel she can adequately take care of the pt at home by herself. The pt, his family, and want the pt to sign DPOA paperwork, informed pt social work team can assist. Family requested name and phone number for social worker psychiatric and hospitalist team, gave info to and . Pt is requesting information from social worker psychiatric to be given through [facility] [phone].
[2019-10-11 19:00] VITALS: BP 142/79
[2019-10-11] MEDS: INSULIN GLARGINE SYRINGE. SQ SCH (21:27)
[2019-10-11] MEDS: ENOXAPARIN 30 MG/0.3 ML SYRINGE. SQ SCH (21:28)
[2019-10-11 23:07] VITALS: BP 133/67
[2019-10-12 03:14] VITALS: BP 145/74
[2019-10-12 05:37] LABS: CALCIUM 8.7 mg/dL (8.5-10.1); GFR 85.9; POTASSIUM 3.9 mmol/L (3.5-5.1)
[2019-10-12 07:00] VITALS: BP 163/94
[2019-10-12] MEDS: INSULIN LISPRO 300 UNITS/3 ML VIAL. SQ SCH ×4 (07:30→20:46)
[2019-10-12 11:00] VITALS: BP 159/79
[2019-10-12] MEDS: HYDROcodone/APAP 5/325MG 1 TAB TABLET PO PRN ×2 (11:10→20:39)
[2019-10-12] MEDS: LINAGLIPTIN 5 MG TABLET PO SCH (11:11)
[2019-10-12] MEDS: amLODIPine BESYLATE 10 MG TABLET PO SCH (11:11)
[2019-10-12] MEDS: TAMSULOSIN 0.4 MG CAP.ER.24H. PO SCH (11:11)
[2019-10-12] MEDS: levETIRAcetam 500 MG TABLET PO SCH ×2 (11:11→20:39)
[2019-10-12] MEDS: DULoxetine HCL 30 MG CAPSULE.DR PO SCH ×2 (11:11→20:38)
--- NOTE | 2019-10-12 12:38 | CARD ---
MR#: [id number] Date of Study: 10/12/2019 Ordering Physician: NAVDEEP LIANG, Referring Physician: NAVDEEP LIANG, Tech: Anna Sanchez APPROVED REPORT EXAM: Two-dimensional and M-mode echocardiogram with Doppler and color Doppler. Other Information Quality : GoodHR: 76bpm INDICATION Syncope RISK FACTORS Diabetes 2D DIMENSIONS RVDd3.2 (2.9-3.5cm)Left Atrium(2D)3.2 (1.6-4.0cm) IVSd2.8 (0.7-1.1cm)Aortic Root(2D)2.9 (2.0-3.7cm) LVDd2.5 (3.9-5.9cm)LVOT Diameter2.2 (1.8-2.4cm) PWd1.1 (0.7-1.1cm)LVDs2.9 (2.5-4.0cm) FS (%) 31.7 %SV47.1 ml LVEF(%)60.1 (>50%) Aortic Valve AoV Peak Salo.161.6cm/sAoV VTI33.2cm AO Peak GR.10.4mmHgLVOT VTI 23.51cm AO Mean GR.6mmHg Mitral Valve MV E Mnzyilqf48.3cm/sMV E Peak Gr.4mmHg MV DECEL [id number] A Nkdygcmm48.5cm/s MV E Mean Gr.2mmHgE/A Ratio0.8 TDI Lateral E' P. V9.01cm/sMedial E' P. V7.59cm/s E/Lateral E'7.1E/Medial E'8.5 Tricuspid Valve TR P. [id number]/sRAP [id number] TR Peak Gr.[id number] Pulmonary Vein S1 Upmdrcxc89.6cm/sS2 Urmwsxus35.85cm/s D2 Pffjhrja62.8cm/sPVa [id number] LEFT VENTRICLE The left ventricle is normal size. There is mild concentric left ventricular hypertrophy. The left ve ntricular systolic function is normal and the ejection fraction is within normal range. The Ejection Fraction is 50-55%. There is normal LV segmental wall motion. Transmitral Doppler flow pattern is Gra de I-abnormal relaxation pattern. RIGHT VENTRICLE The right ventricle is normal size. There is normal right ventricular wall thickness. The right ventr icular systolic function is normal. ATRIA The left atrium size is normal. The right atrium size is normal. The interatrial septum is intact wit h no evidence for an atrial septal defect or patent foramen ovale as noted on 2-D or Doppler imaging. AORTIC VALVE The aortic valve is calcified but opens well. Doppler and Color Flow revealed no significant aortic r egurgitation. There is no significant aortic valvular stenosis. Calculated aortic valve area is 2.7 c m2 with maximum pressure gradient of 12 mmHg and mean pressure gradient of 7 mmHg. MITRAL VALVE The mitral valve is normal in structure and function. There is no evidence of mitral valve prolapse. There is no mitral valve stenosis. Doppler and Color-flow revealed trace mitral regurgitation. TRICUSPID VALVE The tricuspid valve is normal in structure and function. Doppler and Color Flow revealed mild tricusp id regurgitation with an estimated PAP of 48 mmHg. There is no tricuspid valve stenosis. PULMONIC VALVE The pulmonic valve is not well visualized. Doppler and Color Flow revealed no pulmonic valvular regur gitation. GREAT VESSELS The aortic root is normal in size. The IVC was not visualized. PERICARDIAL EFFUSION There is no evidence of significant pericardial effusion. Critical Notification Critical Value: No <Conclusion> The left ventricle is normal size. The left ventricular systolic function is normal and the ejection fraction is within normal range. The Ejection Fraction is 50-55%. There is mild concentric left ventricular hypertrophy. Doppler and Color Flow revealed no significant aortic regurgitation. There is no significant aortic valvular stenosis. Calculated aortic valve area is 2.7 cm2 with maximum pressure gradient of 12 mmHg and mean pressure g radient of 7 mmHg. Doppler and Color-flow revealed trace mitral regurgitation. Doppler and Color Flow revealed mild tricuspid regurgitation with an estimated PAP of 48 mmHg. Signed by : Bg Rosales MD Electronically Approved : 10/12/2019 12:37:59
--- NOTE | 2019-10-12 12:52 | CONS ---
DATE OF CONSULTATION: LOCATION: He is in room 654. ATTENDING PHYSICIAN: Gonzalo Levy MD REASON FOR CONSULTATION: The patient was seen at the request of Dr. Lvey for rehab evaluation. HISTORY OF PRESENT ILLNESS: This is an 84-year-old legally blind male with known hypertension, diabetes mellitus, cerebrovascular accident, carcinoma of prostate, dementia, seizure disorder, admitted through the Emergency Room with syncopal episode. The patient usually lives with his who was at present time hospitalized at [facility] with some pulmonary problems in ICU. The patient was found incontinent of urine and confusion by emergency medical service personnel. The patient had CT scan of the brain, which revealed generalized supratentorial atrophy. Carotid Doppler studies failed to reveal any significant stenotic disease. Chest x-ray is alright. Right angle x-ray failed to reveal any acute abnormality. He complains of right ankle pain and swelling. The patient is not known allergic to any medication. He was noted in the Emergency Room with blood sugar of 306. The patient has been independent with his basic mobility and motor aspects of his self-care despite being blind using a cane to get around. He had 4 steps to enter the house. PHYSICAL EXAMINATION: Today revealed an elderly male. He is alert and oriented to time, place, person, circumstance and follows commands appropriately. Moves all 4 extremities voluntarily where he had 4+/5 grade muscle strength. He had pain on attempts at movement of his right ankle. He had edema of his right ankle and diffuse tenderness to palpation at right ankle and both medial and lateral aspect. The patient had equal perception of touch and pinprick sensation bilaterally. Deep tendon reflexes are 1-2+ and symmetrical with absent ankle jerks. He had mild crepitus on range of motion of his knee joints without any obvious knee joint effusion and he had pain free range of motion of both hip and left ankle joints. I have not tested his mobility skills at this time, but he walked using a roller walker with physical therapy for about 20 feet yesterday with limping on his right foot. ASSESSMENT: An elderly male with recent syncopal episode and a fall in a patient with known diabetes mellitus, peripheral neuropathy, old cerebrovascular accident, hypertension, dementia, carcinoma of prostate, blindness and right ankle sprain. RECOMMENDATIONS: To obtain Cam walker boot for him to use while up. To continue using ice packs. Agree with the plan for physical therapy and occupational therapy and transfer to nursing home care unit for continued care. Dr. Levy, I appreciate asking me to participate in the care of this interesting patient. I will be glad to see him for followup with you on as needed basis. SORIN FORD MD DR: POONAM/hugh JOB#: [id number] / [id number]
[2019-10-12 15:00] VITALS: BP 145/72
--- NOTE | 2019-10-12 16:19 | PDOC ---
PROGRESS NOTES Chief Complaint Chief Complaint A/P: Syncope - found down by EMS when arrived. He does not recall. seems to have been a vasovagal event Telemetry, echo, carotid doppler reviewed Acute encephalopathy - metabolic. could be post-ictal. Will monitor. No infectious signs Right ankle pain and swelling - X-ray r/o fracture. He cannot bear weight today. Definitely sprained. PT recs Dr Darby levine greatly appreciated Weakness - could be post-ictal state. 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 EMS reported that patient family called 911 with complaint of syncope, however, no one else was present on arrival. Patient had urinated on himself and was confused. He notes he still feels confused and notes his right ankle hurts. He initially thinks he is in his living room, but is redirected. He is scattered with his history and keeps interrupting himself. He tells me his confusion is frustrating and notes he has had a few seizures and a stroke in the past and he feels similar to those times currently. He states he has stopped checking his blood sugar at home and misses some medications because he can't see and notes he can be compliant with meds and insulin when someone can help him with these things. Patient states his is in the hospital at [facility] and tells me he is worried that she was sick when in [place] recently. No family member presented to the emergency room. CT head shows generalized supratentorial atrophy. Labs significant for glucose of 306 and Cr 1.3. Carotid doppler - 1. Mild plaque the carotid bifurcations more on the left than on the right but without hemodynamically significant stenosis. 2. Antegrade flow in each vertebral. 10/11/2019 He is feeling better today, but unable to bear weight on his right ankle. No NVD. No CP or SOB. 10/12/2019 Patient with no new complaints. Continues to have ankle discomfort and he points that his edema, patient has been seen by Dr. Pastor at the present time no need for surgical intervention given the absence of fractures on the boot has been recommended by Dr. Garcia. He will need certainly placement at this point given that his chances of falling and readmission are quite high Vitals Vitals Vital Signs Date Time Temp Pulse Resp B/P (MAP) Pulse Ox O2 Delivery O2 Flow Rate FiO2 10/12/19 11:11 82 163/94 10/12/19 11:10 16 Room Air 10/12/19 11:00 97.8 97 97.8 10/12/19 07:00 Physical Exam General: Alert, Cooperative, No acute distress Lungs: Clear Abdomen: Normal bowel sounds, Soft, No tenderness, No hepatosplenomegaly, No masses Extremities: Other (Swelling of right ankle and lateral malleolus tenderness) Skin: No rashes, No breakdown, No significant lesion Labs LABS Laboratory Tests Test 10/11/19 17:18 10/11/19 20:35 10/12/19 04:36 10/12/19 07:32 Glucose (Fingerstick) 126 mg/dL (70-99) 152 mg/dL (70-99) 93 mg/dL (70-99) Sodium Level 139 mmol/L (136-145) Potassium Level 3.9 mmol/L (3.5-5.1) Chloride Level 102 mmol/L (98-107) Carbon Dioxide Level 28 mmol/L (21-32) Anion Gap 9 (6-14) Blood Urea Nitrogen 13 mg/dL (8-26) Creatinine 1.0 mg/dL (0.7-1.3) Estimated GFR (Cockcroft-Gault) 85.9 Glucose Level 99 mg/dL (70-99) Calcium Level 8.7 mg/dL (8.5-10.1) Test 10/12/19 11:35 Glucose (Fingerstick) 161 mg/dL (70-99) Review of Systems Review of Systems Pertinent as per HPI otherwise 14 point review of system is negative Assessment and Plan Assessmemt and Plan Problems Medical Problems: (1) Dementia Status: Acute (2) Legally blind Status: Acute (3) Syncope Status: Acute (4) Uncontrolled diabetes mellitus Status: Acute Comment Review of Relevant I have reviewed the following items maira (where applicable) has been applied. Labs Laboratory Tests Test 10/10/19 20:48 10/11/19 07:00 10/11/19 08:02 10/11/19 12:12 Glucose (Fingerstick) 133 mg/dL (70-99) 100 mg/dL (70-99) 155 mg/dL (70-99) White Blood Count 8.6 x10^3/uL (4.0-11.0) Red Blood Count 4.24 x10^6/uL (4.30-5.70) Hemoglobin 11.8 g/dL (13.0-17.5) Hematocrit 35.8 % (39.0-53.0) Mean Corpuscular Volume 84 fL (79-100) Mean Corpuscular Hemoglobin 28 pg (25-35) Mean Corpuscular Hemoglobin Concent 33 g/dL (31-37) Red Cell Distribution Width 15.0 % (11.5-14.5) Platelet Count 262 x10^3/uL (140-400) Neutrophils (%) (Auto) 32 % (31-73) Lymphocytes (%) (Auto) 59 % (24-48) Monocytes (%) (Auto) 9 % (0-9) Eosinophils (%) (Auto) 1 % (0-3) Basophils (%) (Auto) 0 % (0-3) Neutrophils # (Auto) 2.7 x10^3/uL (1.8-7.7) Lymphocytes # (Auto) 5.1 x10^3/uL (1.0-4.8) Monocytes # (Auto) 0.8 x10^3/uL (0.0-1.1) Eosinophils # (Auto) 0.1 x10^3/uL (0.0-0.7) Basophils # (Auto) 0.0 x10^3/uL (0.0-0.2) Sodium Level 139 mmol/L (136-145) Potassium Level 3.8 mmol/L (3.5-5.1) Chloride Level 104 mmol/L (98-107) Carbon Dioxide Level 31 mmol/L (21-32) Anion Gap 4 (6-14) Blood Urea Nitrogen 17 mg/dL (8-26) Creatinine 1.1 mg/dL (0.7-1.3) Estimated GFR (Cockcroft-Gault) 77.0 Glucose Level 102 mg/dL (70-99) Calcium Level 9.0 mg/dL (8.5-10.1) Test 10/11/19 17:18 10/11/19 20:35 10/12/19 04:36 10/12/19 07:32 Glucose (Fingerstick) 126 mg/dL (70-99) 152 mg/dL (70-99) 93 mg/dL (70-99) Sodium Level 139 mmol/L (136-145) Potassium Level 3.9 mmol/L (3.5-5.1) Chloride Level 102 mmol/L (98-107) Carbon Dioxide Level 28 mmol/L (21-32) Anion Gap 9 (6-14) Blood Urea Nitrogen 13 mg/dL (8-26) Creatinine 1.0 mg/dL (0.7-1.3) Estimated GFR (Cockcroft-Gault) 85.9 Glucose Level 99 mg/dL (70-99) Calcium Level 8.7 mg/dL (8.5-10.1) Test 10/12/19 11:35 Glucose (Fingerstick) 161 mg/dL (70-99) Laboratory Tests Test 10/11/19 17:18 10/11/19 20:35 10/12/19 04:36 10/12/19 07:32 Glucose (Fingerstick) 126 mg/dL (70-99) 152 mg/dL (70-99) 93 mg/dL (70-99) Sodium Level 139 mmol/L (136-145) Potassium Level 3.9 mmol/L (3.5-5.1) Chloride Level 102 mmol/L (98-107) Carbon Dioxide Level 28 mmol/L (21-32) Anion Gap 9 (6-14) Blood Urea Nitrogen 13 mg/dL (8-26) Creatinine 1.0 mg/dL (0.7-1.3) Estimated GFR (Cockcroft-Gault) 85.9 Glucose Level 99 mg/dL (70-99) Calcium Level 8.7 mg/dL (8.5-10.1) Test 10/12/19 11:35 Glucose (Fingerstick) 161 mg/dL (70-99) Medications Current Medications Amlodipine Besylate (Norvasc) 10 mg DAILY PO Last administered on 10/12/19 11:11; Start 10/11/19 at 09:00 Duloxetine HCl (Cymbalta) 30 mg BID PO Last administered on 10/12/19 11:11; Start 10/10/19 at 21:00 Acetaminophen/ Hydrocodone Bitart (Lortab 5/325) 1 tab PRN Q4HRS PRN PO MILD PAIN 1-3 Last administered on 10/10/19 20:36; Start 10/10/19 at 18:15; Stop 10/10/19 at 22:23; Status DC Levetiracetam (Keppra) 500 mg BID PO Last administered on 10/12/19 11:11; Start 10/10/19 at 21:00 Tamsulosin HCl (Flomax) 0.4 mg DAILY PO Last administered on 10/12/19 11:11; Start 10/11/19 at 09:00 Linagliptin (Tradjenta) 5 mg DAILY PO Last administered on 10/12/19 11:11; Start 10/11/19 at 09:00 Insulin Glargine (Lantus Syringe) 8 unit QHS SQ Last administered on 10/11/19 21:27; Start 10/10/19 at 21:00 Insulin Human Lispro (HumaLOG) 0-5 UNITS TIDACHC SQ Last administered on 10/12/19 12:54; Start 10/10/19 at 21:00 Dextrose (Dextrose 50%-Water Syringe) 12.5 gm PRN Q15MIN PRN IV SEE COMMENTS; Start 10/10/19 at 18:15 Enoxaparin Sodium (Lovenox 30mg Syringe) 30 mg Q24H SQ Last administered on 10/11/19 21:28; Start 10/10/19 at 21:00; Stop 10/12/19 at 13:22; Status DC Ondansetron HCl (Zofran) 4 mg PRN Q4HRS PRN IV NAUSEA/VOMITING; Start 10/10/19 at 20:00 Acetaminophen (Tylenol) 650 mg PRN Q6HRS PRN PO TEMP OVER 100.4F OR MILD PAIN; Start 10/10/19 at 20:00 Acetaminophen/ Hydrocodone Bitart (Lortab 5/325) 2 tab PRN Q4HRS PRN PO MODERATE- SEVERE PAIN Last administered on 10/12/19at 11:10; Start 10/10/19 at 22:30 Enoxaparin Sodium (Lovenox 40mg Syringe) 40 mg Q24H SQ ; Start 10/12/19 at 21:00 Active Scripts Active Pyridium (Phenazopyridine Hcl) 200 Mg Tablet 200 Mg PO TID Cipro (Ciprofloxacin Hcl) 500 Mg Tablet 1 Tab PO BID Hydrocodone-Apap 5-325 (Hydrocodone Bit/Acetaminophen) 1 Each Tablet 1 Tab PO PRN Q4HRS PRN Flomax (Tamsulosin Hcl) 0.4 Mg Cap.er.24h 1 Cap PO DAILY Reported Keppra (Levetiracetam) 500 Mg Tablet 1 Tab PO BID Duloxetine Hcl 30 Mg Capsule.dr 30 Mg PO BID Metformin Hcl 1,000 Mg Tablet 1 Tab PO BID Lisinopril-Hctz 20-12.5 Mg Tab (Lisinopril/Hydrochlorothiazide) 1 Each Tablet 1 Tab PO DAILY Norvasc (Amlodipine Besylate) 10 Mg Tablet 10 Mg PO DAILY Flomax (Tamsulosin Hcl) 0.4 Mg Cap.er.24h 1 Cap PO DAILY Januvia (Sitagliptin Phosphate) 100 Mg Tablet 1 Tab PO DAILY Vitals/I & O Vital Sign - Last 24 Hours 10/11/19 10/11/19 10/11/19 10/12/19 19:00 20:00 23:07 03:14 Temp 98.3 98.9 98.1 98.3 98.9 98.1 Pulse 86 71 76 Resp 20 20 20 B/P (MAP) 142/79 (100) 133/67 (89) 145/74 (97) Pulse Ox 96 99 96 O2 Delivery Room Air Room Air Room Air Room Air 10/12/19 10/12/19 10/12/19 10/12/19 07:00 11:00 11:10 11:11 Temp 97.9 97.8 97.9 97.8 Pulse 82 81 82 Resp 16 18 16 B/P (MAP) 163/94 (117) 159/79 (105) 163/94 Pulse Ox 97 97 O2 Delivery Room Air Room Air Room Air O2 Flow Rate Intake and Output 10/11/19 10/11/19 10/12/19 15:00 23:00 07:00 Output Total 300 ml Balance -300 ml ADRIANO GLEZ MD Oct 12, 2019 16:19
[2019-10-12 19:50] VITALS: BP 134/68
[2019-10-12] MEDS: ENOXAPARIN 40 MG/0.4 ML SYRINGE. SQ SCH (20:40)
[2019-10-12] MEDS: INSULIN GLARGINE SYRINGE. SQ SCH (20:46)
[2019-10-12 23:26] VITALS: BP 144/80
[2019-10-13 03:47] VITALS: BP 152/79
[2019-10-13 05:12] LABS: CALCIUM 8.8 mg/dL (8.5-10.1); CREATININE 0.9 mg/dL (0.7-1.3); POTASSIUM 4.1 mmol/L (3.5-5.1)
[2019-10-13 07:00] VITALS: BP 181/89
[2019-10-13] MEDS: INSULIN LISPRO 300 UNITS/3 ML VIAL. SQ SCH ×4 (07:30→21:00)
[2019-10-13] MEDS: LINAGLIPTIN 5 MG TABLET PO SCH (09:40)
[2019-10-13] MEDS: TAMSULOSIN 0.4 MG CAP.ER.24H. PO SCH (09:41)
[2019-10-13] MEDS: DULoxetine HCL 30 MG CAPSULE.DR PO SCH ×2 (09:41→21:19)
[2019-10-13] MEDS: levETIRAcetam 500 MG TABLET PO SCH ×2 (09:41→21:19)
[2019-10-13] MEDS: amLODIPine BESYLATE 10 MG TABLET PO SCH (09:41)
[2019-10-13 11:00] VITALS: BP 145/27
--- NOTE | 2019-10-13 11:19 | PDOC ---
PROGRESS NOTES Chief Complaint Chief Complaint A/P: Syncope - found down by EMS when arrived. He does not recall. seems to have been a vasovagal event Telemetry, echo, carotid doppler reviewed Acute encephalopathy - metabolic. could be post-ictal. Will monitor. No infectious signs Right ankle pain and swelling - X-ray r/o fracture. He cannot bear weight today. Definitely sprained. PT recs Dr Darby levine greatly appreciated Weakness - could be post-ictal state. 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 EMS reported that patient family called 911 with complaint of syncope, however, no one else was present on arrival. Patient had urinated on himself and was confused. He notes he still feels confused and notes his right ankle hurts. He initially thinks he is in his living room, but is redirected. He is scattered with his history and keeps interrupting himself. He tells me his confusion is frustrating and notes he has had a few seizures and a stroke in the past and he feels similar to those times currently. He states he has stopped checking his blood sugar at home and misses some medications because he can't see and notes he can be compliant with meds and insulin when someone can help him with these things. Patient states his is in the hospital at [facility] and tells me he is worried that she was sick when in [place] recently. No family member presented to the emergency room. CT head shows generalized supratentorial atrophy. Labs significant for glucose of 306 and Cr 1.3. Carotid doppler - 1. Mild plaque the carotid bifurcations more on the left than on the right but without hemodynamically significant stenosis. 2. Antegrade flow in each vertebral. 10/11/2019 He is feeling better today, but unable to bear weight on his right ankle. No NVD. No CP or SOB. 10/12/2019 Patient with no new complaints. Continues to have ankle discomfort and he points that his edema, patient has been seen by Dr. Pastor at the present time no need for surgical intervention given the absence of fractures on the boot has been recommended by Dr. Garcia. He will need certainly placement at this point given that his chances of falling and readmission are quite high 10/13/2019 No new acute events reported overnight. Awaiting for placement, boot is not available just yet. We will follow-up with nursing staff regarding this matter. Vitals Vitals Vital Signs Date Time Temp Pulse Resp B/P (MAP) Pulse Ox O2 Delivery O2 Flow Rate FiO2 10/13/19 09:41 80 181/89 10/13/19 07:00 98.0 16 97 Room Air 98.0 10/12/19 07:00 Physical Exam General: Alert, Cooperative, No acute distress Lungs: Clear Abdomen: Normal bowel sounds, Soft, No tenderness, No hepatosplenomegaly, No masses Extremities: Other (Swelling of right ankle and lateral malleolus tenderness) Skin: No rashes, No breakdown, No significant lesion Labs LABS Laboratory Tests Test 10/12/19 11:35 10/12/19 17:00 10/12/19 20:38 10/13/19 03:30 Glucose (Fingerstick) 161 mg/dL (70-99) 117 mg/dL (70-99) 184 mg/dL (70-99) Sodium Level 138 mmol/L (136-145) Potassium Level 4.1 mmol/L (3.5-5.1) Chloride Level 102 mmol/L (98-107) Carbon Dioxide Level 29 mmol/L (21-32) Anion Gap 7 (6-14) Blood Urea Nitrogen 14 mg/dL (8-26) Creatinine 0.9 mg/dL (0.7-1.3) Estimated GFR (Cockcroft-Gault) 97.0 Glucose Level 87 mg/dL (70-99) Calcium Level 8.8 mg/dL (8.5-10.1) Test 10/13/19 07:41 Glucose (Fingerstick) 86 mg/dL (70-99) Assessment and Plan Assessmemt and Plan Problems Medical Problems: (1) Dementia Status: Acute (2) Legally blind Status: Acute (3) Syncope Status: Acute (4) Uncontrolled diabetes mellitus Status: Acute Comment Review of Relevant I have reviewed the following items maira (where applicable) has been applied. Labs Laboratory Tests Test 10/11/19 12:12 10/11/19 17:18 10/11/19 20:35 10/12/19 04:36 Glucose (Fingerstick) 155 mg/dL (70-99) 126 mg/dL (70-99) 152 mg/dL (70-99) Sodium Level 139 mmol/L (136-145) Potassium Level 3.9 mmol/L (3.5-5.1) Chloride Level 102 mmol/L (98-107) Carbon Dioxide Level 28 mmol/L (21-32) Anion Gap 9 (6-14) Blood Urea Nitrogen 13 mg/dL (8-26) Creatinine 1.0 mg/dL (0.7-1.3) Estimated GFR (Cockcroft-Gault) 85.9 Glucose Level 99 mg/dL (70-99) Calcium Level 8.7 mg/dL (8.5-10.1) Test 10/12/19 07:32 10/12/19 11:35 10/12/19 17:00 10/12/19 20:38 Glucose (Fingerstick) 93 mg/dL (70-99) 161 mg/dL (70-99) 117 mg/dL (70-99) 184 mg/dL (70-99) Test 10/13/19 03:30 10/13/19 07:41 Sodium Level 138 mmol/L (136-145) Potassium Level 4.1 mmol/L (3.5-5.1) Chloride Level 102 mmol/L (98-107) Carbon Dioxide Level 29 mmol/L (21-32) Anion Gap 7 (6-14) Blood Urea Nitrogen 14 mg/dL (8-26) Creatinine 0.9 mg/dL (0.7-1.3) Estimated GFR (Cockcroft-Gault) 97.0 Glucose Level 87 mg/dL (70-99) Calcium Level 8.8 mg/dL (8.5-10.1) Glucose (Fingerstick) 86 mg/dL (70-99) Laboratory Tests Test 10/12/19 11:35 10/12/19 17:00 10/12/19 20:38 10/13/19 03:30 Glucose (Fingerstick) 161 mg/dL (70-99) 117 mg/dL (70-99) 184 mg/dL (70-99) Sodium Level 138 mmol/L (136-145) Potassium Level 4.1 mmol/L (3.5-5.1) Chloride Level 102 mmol/L (98-107) Carbon Dioxide Level 29 mmol/L (21-32) Anion Gap 7 (6-14) Blood Urea Nitrogen 14 mg/dL (8-26) Creatinine 0.9 mg/dL (0.7-1.3) Estimated GFR (Cockcroft-Gault) 97.0 Glucose Level 87 mg/dL (70-99) Calcium Level 8.8 mg/dL (8.5-10.1) Test 10/13/19 07:41 Glucose (Fingerstick) 86 mg/dL (70-99) Medications Current Medications Amlodipine Besylate (Norvasc) 10 mg DAILY PO Last administered on 10/13/19 09:41; Start 10/11/19 at 09:00 Duloxetine HCl (Cymbalta) 30 mg BID PO Last administered on 10/13/19 09:41; Start 10/10/19 at 21:00 Acetaminophen/ Hydrocodone Bitart (Lortab 5/325) 1 tab PRN Q4HRS PRN PO MILD P AIN 1-3 Last administered on 10/10/19 20:36; Start 10/10/19 at 18:15; Stop 10/10/19 at 22:23; Status DC Levetiracetam (Keppra) 500 mg BID PO Last administered on 10/13/19 09:41; Start 10/10/19 at 21:00 Tamsulosin HCl (Flomax) 0.4 mg DAILY PO Last administered on 10/13/19 09:41; Start 10/11/19 at 09:00 Linagliptin (Tradjenta) 5 mg DAILY PO Last administered on 10/13/19 09:40; St art 10/11/19 at 09:00 Insulin Glargine (Lantus Syringe) 8 unit QHS SQ Last administered on 3/9/20at 20:46; Start 10/10/19 at 21:00 Insulin Human Lispro (HumaLOG) 0-5 UNITS TIDACHC SQ Last administered on 10/12/19at 20:46; Start 10/10/19 at 21:00 Dextrose (Dextrose 50%-Water Syringe) 12.5 gm PRN Q15MIN PRN IV SEE COMMENTS; Start 10/10/19 at 18:15 Enoxaparin Sodium (Lovenox 30mg Syringe) 30 mg Q24H SQ Last administered on 10/11/19at 21:28; Start 10/10/19 at 21:00; Stop 10/12/19 at 13:22; Status DC Ondansetron HCl (Zofran) 4 mg PRN Q4HRS PRN IV NAUSEA/VOMITING; Start 10/10/19 at 20:00 Acetaminophen (Tylenol) 650 mg PRN Q6HRS PRN PO TEMP OVER 100.4F OR MILD PAIN; Start 10/10/19 at 20:00 Acetaminophen/ Hydrocodone Bitart (Lortab 5/325) 2 tab PRN Q4HRS PRN PO MODERATE- SEVERE PAIN Last administered on 10/12/19at 20:39; Start 10/10/19 at 22:30 Enoxaparin Sodium (Lovenox 40mg Syringe) 40 mg Q24H SQ Last administered on 10/12/19at 20:40; Start 10/12/19 at 21:00 Active Scripts Active Pyridium (Phenazopyridine Hcl) 200 Mg Tablet 200 Mg PO TID Cipro (Ciprofloxacin Hcl) 500 Mg Tablet 1 Tab PO BID Hydrocodone-Apap 5-325 (Hydrocodone Bit/Acetaminophen) 1 Each Tablet 1 Tab PO PRN Q4HRS PRN Flomax (Tamsulosin Hcl) 0.4 Mg Cap.er.24h 1 Cap PO DAILY Reported Keppra (Levetiracetam) 500 Mg Tablet 1 Tab PO BID Duloxetine Hcl 30 Mg Capsule.dr 30 Mg PO BID Metformin Hcl 1,000 Mg Tablet 1 Tab PO BID Lisinopril-Hctz 20-12.5 Mg Tab (Lisinopril/Hydrochlorothiazide) 1 Each Tablet 1 Tab PO DAILY Norvasc (Amlodipine Besylate) 10 Mg Tablet 10 Mg PO DAILY Flomax (Tamsulosin Hcl) 0.4 Mg Cap.er.24h 1 Cap PO DAILY Januvia (Sitagliptin Phosphate) 100 Mg Tablet 1 Tab PO DAILY Vitals/I & O Vital Sign - Last 24 Hours 10/12/19 10/12/19 10/12/19 10/12/19 12:10 15:00 19:50 20:00 Temp 97.8 97.8 Pulse 82 87 Resp 16 16 18 B/P (MAP) 145/72 (96) 134/68 (90) Pulse Ox 97 96 O2 Delivery Room Air Room Air Room Air Room Air 10/12/19 10/12/19 10/12/19 10/13/19 20:39 21:39 23:26 03:47 Temp 98.3 97.7 98.3 97.7 Pulse 74 74 Resp 18 16 18 20 B/P (MAP) 144/80 (101) 152/79 (103) Pulse Ox 96 96 96 99 O2 Delivery Room Air Room Air Room Air Room Air 10/13/19 10/13/19 07:00 09:41 Temp 98.0 98.0 Pulse 80 80 Resp 16 B/P (MAP) 181/89 (119) 181/89 Pulse Ox 97 O2 Delivery Room Air Intake and Output 10/12/19 10/12/19 10/13/19 15:00 23:00 07:00 Output Total 325 ml 750 ml Balance -325 ml -750 ml ADRIANO GLEZ MD Oct 13, 2019 11:19
[2019-10-13] MEDS: HYDROcodone/APAP 5/325MG 1 TAB TABLET PO PRN (12:25)
--- NOTE | 2019-10-13 12:29 | PDOC2 ---
CONSULT Date of Consult Date of Consult DATE: 10/13/19 TIME: 12:09 Reason for Consult Reason for Consult: Long painful toenails. Referring Physician Referring Physician: Dr. Pastor Identification/Chief Complaint Chief Complaint Long and painful toenails. Source Source: Chart review, Patient History of Present Illness Reason for Visit: Patient seen bedside this morning for painful and long toenails. Patient relates that he is in the hospital as he passed out and fell. Patient reports that it has been a while since the nails were taken care of. Patient has swelling with pain in the right ankle and rearfoot. Dr. Pastor has seen the patient for the swelling in pain in the right foot and ankle. Patient had right ankle Xrays. Patient is going to be placed in a CAM Walker boot. Patient denies any other issues with the feet. Past Medical History Cardiovascular: HTN, Syncope Pulmonary: No pertinent hx CENTRAL NERVOUS SYSTEM: CVA GI: No pertinent hx Heme/Onc: No pertinent hx Hepatobiliary: No pertinent hx Psych: No pertinent hx Musculoskeletal: Osteoarthritis Rheumatologic: No pertinent hx Infectious disease: No pertinent hx Renal/: Benign prostatic enlarg. Endocrine: Diabetes Past Surgical History Past Surgical History: Other Family History Family History: No Significant Social History No ALCOHOL: rare Drugs: None Lives: with Family Current Problem List Problem List Problems Medical Problems: (1) Dementia Status: Acute (2) Legally blind Status: Acute (3) Syncope Status: Acute (4) Uncontrolled diabetes mellitus Status: Acute Current Medications Current Medications Current Medications Amlodipine Besylate (Norvasc) 10 mg DAILY PO Last administered on 10/13/19 09:41; Start 10/11/19 at 09:00 Duloxetine HCl (Cymbalta) 30 mg BID PO Last administered on 10/13/19 09:41; Start 10/10/19 at 21:00 Acetaminophen/ Hydrocodone Bitart (Lortab 5/325) 1 tab PRN Q4HRS PRN PO MILD PAIN 1-3 Last administered on 10/10/19at 20:36; Start 10/10/19 at 18:15; Stop 10/10/19 at 22:23; Status DC Levetiracetam (Keppra) 500 mg BID PO Last administered on 10/13/19 09:41; Start 10/10/19 at 21:00 Tamsulosin HCl (Flomax) 0.4 mg DAILY PO Last administered on 10/13/19 09:41; Start 10/11/19 at 09:00 Linagliptin (Tradjenta) 5 mg DAILY PO Last administered on 10/13/19 09:40; Start 10/11/19 at 09:00 Insulin Glargine (Lantus Syringe) 8 unit QHS SQ Last administered on 10/12/19at 20:46; Start 10/10/19 at 21:00 Insulin Human Lispro (HumaLOG) 0-5 UNITS TIDACHC SQ Last administered on 10/12/19 20:46; Start 10/10/19 at 21:00 Dextrose (Dextrose 50%-Water Syringe) 12.5 gm PRN Q15MIN PRN IV SEE COMMENTS; Start 10/10/19 at 18:15 Enoxaparin Sodium (Lovenox 30mg Syringe) 30 mg Q24H SQ Last administered on 10/11/19at 21:28; Start 10/10/19 at 21:00; Stop 10/12/19 at 13:22; Status DC Ondansetron HCl (Zofran) 4 mg PRN Q4HRS PRN IV NAUSEA/VOMITING; Start 10/10/19 at 20:00 Acetaminophen (Tylenol) 650 mg PRN Q6HRS PRN PO TEMP OVER 100.4F OR MILD PAIN; Start 10/10/19 at 20:00 Acetaminophen/ Hydrocodone Bitart (Lortab 5/325) 2 tab PRN Q4HRS PRN PO MODERATE- SEVERE PAIN Last administered on 10/12/19at 20:39; Start 10/10/19 at 22:30 Enoxaparin Sodium (Lovenox 40mg Syringe) 40 mg Q24H SQ Last administered on 10/12/19at 20:40; Start 10/12/19 at 21:00 Active Scripts Active Pyridium (Phenazopyridine Hcl) 200 Mg Tablet 200 Mg PO TID Cipro (Ciprofloxacin Hcl) 500 Mg Tablet 1 Tab PO BID Hydrocodone-Apap 5-325 (Hydrocodone Bit/Acetaminophen) 1 Each Tablet 1 Tab PO PRN Q4HRS PRN Flomax (Tamsulosin Hcl) 0.4 Mg Cap.er.24h 1 Cap PO DAILY Reported Keppra (Levetiracetam) 500 Mg Tablet 1 Tab PO BID Duloxetine Hcl 30 Mg Capsule.dr 30 Mg PO BID Metformin Hcl 1,000 Mg Tablet 1 Tab PO BID Lisinopril-Hctz 20-12.5 Mg Tab (Lisinopril/Hydrochlorothiazide) 1 Each Tablet 1 Tab PO DAILY Norvasc (Amlodipine Besylate) 10 Mg Tablet 10 Mg PO DAILY Flomax (Tamsulosin Hcl) 0.4 Mg Cap.er.24h 1 Cap PO DAILY Januvia (Sitagliptin Phosphate) 100 Mg Tablet 1 Tab PO DAILY Allergies Allergies: Coded Allergies: No Known Drug Allergies (Unverified , 02/12/14) ROS Eyes: Yes Blurry vision HEENT: YES: Hearing change Musculoskeletal: Yes Joint Pain, Yes Pain In: (Right ankle and rearfoot) Neurological: Yes Numbness/Tingling Skin: Yes Dry Skin, Yes Nail Changes Physical Exam General: Alert Extremities: Other (Edema noted to the right ankle and foot (midfoot and rearfoot). Faintly palpable DP pulses noted, bilateral feet. Non palpalpable PT pulses, bilateral feet.) Skin: No breakdown, Other (No open lesions noted. Xerosis noted. Nails are elongated, thickened, dystrophic, discolored with subungal debris noted, bilateral feet. No erythema noted.) Neuro: Other (Diminished epicritic sensation noted to the feet, bilateral.) MUSCULOSKELETAL: Other (+ POP at the right ankle, right rearfoot and Lis Franc's joint. Guarding noted at the right ankle and rearfoot / midfoot.) Vitals VITALS Vital Signs Date Time Temp Pulse Resp B/P (MAP) Pulse Ox O2 Delivery O2 Flow Rate FiO2 10/13/19 11:00 98.1 76 18 145/27 (66) 94 Room Air 98.1 10/12/19 07:00 Labs Labs Laboratory Tests Test 10/11/19 12:12 10/11/19 17:18 10/11/19 20:35 10/12/19 04:36 Glucose (Fingerstick) 155 mg/dL (70-99) 126 mg/dL (70-99) 152 mg/dL (70-99) Sodium Level 139 mmol/L (136-145) Potassium Level 3.9 mmol/L (3.5-5.1) Chloride Level 102 mmol/L (98-107) Carbon Dioxide Level 28 mmol/L (21-32) Anion Gap 9 (6-14) Blood Urea Nitrogen 13 mg/dL (8-26) Creatinine 1.0 mg/dL (0.7-1.3) Estimated GFR (Cockcroft-Gault) 85.9 Glucose Level 99 mg/dL (70-99) Calcium Level 8.7 mg/dL (8.5-10.1) Test 10/12/19 07:32 10/12/19 11:35 10/12/19 17:00 10/12/19 20:38 Glucose (Fingerstick) 93 mg/dL (70-99) 161 mg/dL (70-99) 117 mg/dL (70-99) 184 mg/dL (70-99) Test 10/13/19 03:30 10/13/19 07:41 10/13/19 11:24 Sodium Level 138 mmol/L (136-145) Potassium Level 4.1 mmol/L (3.5-5.1) Chloride Level 102 mmol/L (98-107) Carbon Dioxide Level 29 mmol/L (21-32) Anion Gap 7 (6-14) Blood Urea Nitrogen 14 mg/dL (8-26) Creatinine 0.9 mg/dL (0.7-1.3) Estimated GFR (Cockcroft-Gault) 97.0 Glucose Level 87 mg/dL (70-99) Calcium Level 8.8 mg/dL (8.5-10.1) Glucose (Fingerstick) 86 mg/dL (70-99) 138 mg/dL (70-99) Laboratory Tests Test 10/12/19 17:00 10/12/19 20:38 10/13/19 03:30 10/13/19 07:41 Glucose (Fingerstick) 117 mg/dL (70-99) 184 mg/dL (70-99) 86 mg/dL (70-99) Sodium Level 138 mmol/L (136-145) Potassium Level 4.1 mmol/L (3.5-5.1) Chloride Level 102 mmol/L (98-107) Carbon Dioxide Level 29 mmol/L (21-32) Anion Gap 7 (6-14) Blood Urea Nitrogen 14 mg/dL (8-26) Creatinine 0.9 mg/dL (0.7-1.3) Estimated GFR (Cockcroft-Gault) 97.0 Glucose Level 87 mg/dL (70-99) Calcium Level 8.8 mg/dL (8.5-10.1) Test 10/13/19 11:24 Glucose (Fingerstick) 138 mg/dL (70-99) Images Images Right ankle Xrays, did not show any fractures. Assessment/Plan Assessment/Plan Onychomycosis: Nails were debrided mechanically and electrically with relief in discomfort noted to the sites. Discussed with patient about appropriate nail care and foot care. DM with Neuropathy: Discussed in detail with patient about neuropathy and other diabetic complications including PVD. Patient advised on management of blood sugars. Would recommend offloading foam heel boots to both feet. Right ankle and foot pain: Xrays of the ankle show no fractures. Will also recommend right foot Xrays, [address] Pastor is following. Patient is being placed in a CAM Walker Boot. If any issues please contact. Thank you for the consult. Dr. Ermias Salinas DPM [phone] ERMIAS SALINAS DPM Oct 13, 2019 12:29
--- NOTE | 2019-10-13 14:39 | NUR ---
SS following for discharge planning. Pt's spouse requesting that pt go to [facility], ; fax [phone]. environmental restoration planner, Joi Schmitz, faxed referral to [facility] and pt accepted. SS will continue to follow for discharge planning.
[2019-10-13 15:00] VITALS: BP 125/69
--- NOTE | 2019-10-13 15:15 | RAD ---
FOOT RIGHT 2V History: Pain mid foot Technique: 2 views right foot. Comparison: None. Findings: Normal alignment. No fracture. Soft tissues unremarkable. Tiny plantar calcaneal spur. Impression: 1. No acute osseous abnormality. Electronically signed by: Javier Brown DO (10/13/2019 3:12 PM) [id number]
[2019-10-13 19:39] VITALS: BP 142/68
[2019-10-13] MEDS: ENOXAPARIN 40 MG/0.4 ML SYRINGE. SQ SCH (21:19)
[2019-10-13] MEDS: INSULIN GLARGINE SYRINGE. SQ SCH (21:20)
[2019-10-13 22:31] VITALS: BP 162/75
[2019-10-14] MEDS: HYDROcodone/APAP 5/325MG 1 TAB TABLET PO PRN (00:13)
[2019-10-14 02:11] VITALS: BP 156/73
[2019-10-14 07:00] VITALS: BP 151/84
[2019-10-14] MEDS: INSULIN LISPRO 300 UNITS/3 ML VIAL. SQ SCH ×4 (07:30→20:53)
[2019-10-14] MEDS: amLODIPine BESYLATE 10 MG TABLET PO SCH (09:19)
[2019-10-14] MEDS: levETIRAcetam 500 MG TABLET PO SCH ×2 (09:19→21:26)
[2019-10-14] MEDS: LINAGLIPTIN 5 MG TABLET PO SCH (09:19)
[2019-10-14] MEDS: TAMSULOSIN 0.4 MG CAP.ER.24H. PO SCH (09:19)
[2019-10-14] MEDS: DULoxetine HCL 30 MG CAPSULE.DR PO SCH ×2 (09:20→21:26)
--- NOTE | 2019-10-14 11:09 | NUR ---
SS following up with discharge planning. Pt accepted at [facility], ; fax [phone]. SS will await discharge orders and will proceed accordingly.
[2019-10-14 11:22] VITALS: BP 129/67
--- NOTE | 2019-10-14 13:04 | PDOC ---
PROGRESS NOTES Subjective Subjective This note is a late entry for 10/13/2019. He admits continued left ankle pain,and swelling. Objective Objective Vital Signs Date Time Temp Pulse Resp B/P (MAP) Pulse Ox O2 Delivery O2 Flow Rate FiO2 10/14/19 11:22 98.3 78 20 129/67 (87) 99 Room Air 98.3 10/12/19 07:00 Intake and Output 10/14/19 07:00 Intake Total 700 ml Output Total 1475 ml Balance -775 ml Intake Oral 700 ml Output Urine Total 1475 ml # Voids 12 Physical Exam Physical Exam He continues with tenderness to palpation over left ankle and still waiting for cam walker boot to left ankle. Assessment Assessment Problems Medical Problems: (1) Dementia Status: Acute (2) Legally blind Status: Acute (3) Syncope Status: Acute (4) Uncontrolled diabetes mellitus Status: Acute Plan Plan of Care To get him up as tolerated after he receives cam walker to left ankle. Comment Review of Relevant I have reviewed the following items maira (where applicable) has been applied. Labs Laboratory Tests Test 10/12/19 17:00 10/12/19 20:38 10/13/19 03:30 10/13/19 07:41 Glucose (Fingerstick) 117 mg/dL (70-99) 184 mg/dL (70-99) 86 mg/dL (70-99) Sodium Level 138 mmol/L (136-145) Potassium Level 4.1 mmol/L (3.5-5.1) Chloride Level 102 mmol/L (98-107) Carbon Dioxide Level 29 mmol/L (21-32) Anion Gap 7 (6-14) Blood Urea Nitrogen 14 mg/dL (8-26) Creatinine 0.9 mg/dL (0.7-1.3) Estimated GFR (Cockcroft-Gault) 97.0 Glucose Level 87 mg/dL (70-99) Calcium Level 8.8 mg/dL (8.5-10.1) Test 10/13/19 11:24 10/13/19 17:09 10/13/19 20:32 10/14/19 07:21 Glucose (Fingerstick) 138 mg/dL (70-99) 151 mg/dL (70-99) 130 mg/dL (70-99) 106 mg/dL (70-99) Test 10/14/19 11:41 Glucose (Fingerstick) 137 mg/dL (70-99) Laboratory Tests Test 10/13/19 17:09 10/13/19 20:32 10/14/19 07:21 10/14/19 11:41 Glucose (Fingerstick) 151 mg/dL (70-99) 130 mg/dL (70-99) 106 mg/dL (70-99) 137 mg/dL (70-99) Medications Current Medications Amlodipine Besylate (Norvasc) 10 mg DAILY PO Last administered on 10/14/19 09:19; Start 10/11/19 at 09:00 Duloxetine HCl (Cymbalta) 30 mg BID PO Last administered on 10/14/19 09:20; Start 10/10/19 at 21:00 Acetaminophen/ Hydrocodone Bitart (Lortab 5/325) 1 tab PRN Q4HRS PRN PO MILD PAIN 1-3 Last administered on 10/10/19at 20:36; Start 10/10/19 at 18:15; Stop 10/10/19 at 22:23; Status DC Levetiracetam (Keppra) 500 mg BID PO Last administered on 10/14/19 09:19; Start 10/10/19 at 21:00 Tamsulosin HCl (Flomax) 0.4 mg DAILY PO Last administered on 10/14/19 09:19; Start 10/11/19 at 09:00 Linagliptin (Tradjenta) 5 mg DAILY PO Last administered on 10/14/19 09:19; Start 10/11/19 at 09:00 Insulin Glargine (Lantus Syringe) 8 unit QHS SQ Last administered on 10/13/19 21:20; Start 10/10/19 at 21:00 Insulin Human Lispro (HumaLOG) 0-5 UNITS TIDACHC SQ Last administered on 10/13/19at 17:40; Start 10/10/19 at 21:00 Dextrose (Dextrose 50%-Water Syringe) 12.5 gm PRN Q15MIN PRN IV SEE COMMENTS; Start 10/10/19 at 18:15 Enoxaparin Sodium (Lovenox 30mg Syringe) 30 mg Q24H SQ Last administered on 10/11/19at 21:28; Start 10/10/19 at 21:00; Stop 10/12/19 at 13:22; Status DC Ondansetron HCl (Zofran) 4 mg PRN Q4HRS PRN IV NAUSEA/VOMITING; Start 10/10/19 at 20:00 Acetaminophen (Tylenol) 650 mg PRN Q6HRS PRN PO TEMP OVER 100.4F OR MILD PAIN; Start 10/10/19 at 20:00 Acetaminophen/ Hydrocodone Bitart (Lortab 5/325) 2 tab PRN Q4HRS PRN PO MODERATE- SEVERE PAIN Last administered on 10/14/19at 00:13; Start 10/10/19 at 22:30 Enoxaparin Sodium (Lovenox 40mg Syringe) 40 mg Q24H SQ Last administered on 10/13/19at 21:19; Start 10/12/19 at 21:00 Active Scripts Active Pyridium (Phenazopyridine Hcl) 200 Mg Tablet 200 Mg PO TID Cipro (Ciprofloxacin Hcl) 500 Mg Tablet 1 Tab PO BID Hydrocodone-Apap 5-325 (Hydrocodone Bit/Acetaminophen) 1 Each Tablet 1 Tab PO PRN Q4HRS PRN Flomax (Tamsulosin Hcl) 0.4 Mg Cap.er.24h 1 Cap PO DAILY Reported Keppra (Levetiracetam) 500 Mg Tablet 1 Tab PO BID Duloxetine Hcl 30 Mg Capsule.dr 30 Mg PO BID Metformin Hcl 1,000 Mg Tablet 1 Tab PO BID Lisinopril-Hctz 20-12.5 Mg Tab (Lisinopril/Hydrochlorothiazide) 1 Each Tablet 1 Tab PO DAILY Norvasc (Amlodipine Besylate) 10 Mg Tablet 10 Mg PO DAILY Flomax (Tamsulosin Hcl) 0.4 Mg Cap.er.24h 1 Cap PO DAILY Januvia (Sitagliptin Phosphate) 100 Mg Tablet 1 Tab PO DAILY Vitals/I & O Vital Sign - Last 24 Hours 10/13/19 10/13/19 10/13/19 10/13/19 13:25 15:00 19:39 19:50 Temp 98.0 98.4 98.0 98.4 Pulse 81 78 Resp 16 16 23 B/P (MAP) 125/69 (87) 142/68 (92) Pulse Ox 93 96 O2 Delivery Room Air Room Air Room Air Room Air 10/13/19 10/14/19 10/14/1920 22:31 00:13 01:17 02:11 Temp 98.5 98.5 98.5 98.5 Pulse 78 82 Resp 22 16 22 B/P (MAP) 162/75 (104) 156/73 (100) Pulse Ox 98 98 O2 Delivery Room Air Room Air Room Air Room Air 10/14/19 10/14/19 10/14/19 10/14/19 07:00 08:00 09:19 11:22 Temp 98.7 98.3 98.7 98.3 Pulse 77 77 78 Resp 18 20 B/P (MAP) 151/84 (106) 151/84 129/67 (87) Pulse Ox 98 99 O2 Delivery Room Air Room Air Room Air Intake and Output 10/13/19 10/13/19 10/14/19 15:00 23:00 07:00 Intake Total 400 ml 300 ml Output Total 650 ml 825 ml Balance -650 ml 400 ml -525 ml SORIN FORD MD Oct 14, 2019 13:04
--- NOTE | 2019-10-14 13:07 | PDOC ---
PROGRESS NOTES Subjective Subjective He feels less pain in his left ankle with cam boot on. Objective Objective Vital Signs Date Time Temp Pulse Resp B/P (MAP) Pulse Ox O2 Delivery O2 Flow Rate FiO2 10/14/19 11:22 98.3 78 20 129/67 (87) 99 Room Air 98.3 10/12/19 07:00 Intake and Output 10/14/19 07:00 Intake Total 700 ml Output Total 1475 ml Balance -775 ml Intake Oral 700 ml Output Urine Total 1475 ml # Voids 12 Physical Exam Physical Exam He got up with assistance and walked with roller walker with standby supervision using cam boot to left ankle. Assessment Assessment Problems Medical Problems: (1) Dementia Status: Acute (2) Legally blind Status: Acute (3) Syncope Status: Acute (4) Uncontrolled diabetes mellitus Status: Acute Plan Plan of Care To home with home health follow up if he had supervision at home,otherwise to SNF when medically stable. Comment Review of Relevant I have reviewed the following items maira (where applicable) has been applied. Labs Laboratory Tests Test 10/12/19 17:00 10/12/19 20:38 10/13/19 03:30 10/13/19 07:41 Glucose (Fingerstick) 117 mg/dL (70-99) 184 mg/dL (70-99) 86 mg/dL (70-99) Sodium Level 138 mmol/L (136-145) Potassium Level 4.1 mmol/L (3.5-5.1) Chloride Level 102 mmol/L (98-107) Carbon Dioxide Level 29 mmol/L (21-32) Anion Gap 7 (6-14) Blood Urea Nitrogen 14 mg/dL (8-26) Creatinine 0.9 mg/dL (0.7-1.3) Estimated GFR (Cockcroft-Gault) 97.0 Glucose Level 87 mg/dL (70-99) Calcium Level 8.8 mg/dL (8.5-10.1) Test 10/13/19 11:24 10/13/19 17:09 10/13/19 20:32 10/14/19 07:21 Glucose (Fingerstick) 138 mg/dL (70-99) 151 mg/dL (70-99) 130 mg/dL (70-99) 106 mg/dL (70-99) Test 10/14/19 11:41 Glucose (Fingerstick) 137 mg/dL (70-99) Laboratory Tests Test 10/13/19 17:09 10/13/19 20:32 10/14/19 07:21 10/14/19 11:41 Glucose (Fingerstick) 151 mg/dL (70-99) 130 mg/dL (70-99) 106 mg/dL (70-99) 137 mg/dL (70-99) Medications Current Medications Amlodipine Besylate (Norvasc) 10 mg DAILY PO Last administered on 10/14/19 09:19; Start 10/11/19 at 09:00 Duloxetine HCl (Cymbalta) 30 mg BID PO Last administered on 10/14/19 09:20; Start 10/10/19 at 21:00 Acetaminophen/ Hydrocodone Bitart (Lortab 5/325) 1 tab PRN Q4HRS PRN PO MILD PAIN 1-3 Last administered on 10/10/19at 20:36; Start 10/10/19 at 18:15; Stop 10/10/19 at 22:23; Status DC Levetiracetam (Keppra) 500 mg BID PO Last administered on 10/14/19 09:19; Start 10/10/19 at 21:00 Tamsulosin HCl (Flomax) 0.4 mg DAILY PO Last administered on 10/14/19 09:19; Start 10/11/19 at 09:00 Linagliptin (Tradjenta) 5 mg DAILY PO Last administered on 10/14/19 09:19; Start 10/11/19 at 09:00 Insulin Glargine (Lantus Syringe) 8 unit QHS SQ Last administered on 10/13/19 21:20; Start 10/10/19 at 21:00 Insulin Human Lispro (HumaLOG) 0-5 UNITS TIDACHC SQ Last administered on 10/13/19at 17:40; Start 10/10/19 at 21:00 Dextrose (Dextrose 50%-Water Syringe) 12.5 gm PRN Q15MIN PRN IV SEE COMMENTS; Start 10/10/19 at 18:15 Enoxaparin Sodium (Lovenox 30mg Syringe) 30 mg Q24H SQ Last administered on 10/11/19at 21:28; Start 10/10/19 at 21:00; Stop 10/12/19 at 13:22; Status DC Ondansetron HCl (Zofran) 4 mg PRN Q4HRS PRN IV NAUSEA/VOMITING; Start 10/10/19 at 20:00 Acetaminophen (Tylenol) 650 mg PRN Q6HRS PRN PO TEMP OVER 100.4F OR MILD PAIN; Start 10/10/19 at 20:00 Acetaminophen/ Hydrocodone Bitart (Lortab 5/325) 2 tab PRN Q4HRS PRN PO MODERATE- SEVERE PAIN Last administered on 10/14/19at 00:13; Start 10/10/19 at 22:30 Enoxaparin Sodium (Lovenox 40mg Syringe) 40 mg Q24H SQ Last administered on 10/13/19at 21:19; Start 10/12/19 at 21:00 Active Scripts Active Pyridium (Phenazopyridine Hcl) 200 Mg Tablet 200 Mg PO TID Cipro (Ciprofloxacin Hcl) 500 Mg Tablet 1 Tab PO BID Hydrocodone-Apap 5-325 (Hydrocodone Bit/Acetaminophen) 1 Each Tablet 1 Tab PO PRN Q4HRS PRN Flomax (Tamsulosin Hcl) 0.4 Mg Cap.er.24h 1 Cap PO DAILY Reported Keppra (Levetiracetam) 500 Mg Tablet 1 Tab PO BID Duloxetine Hcl 30 Mg Capsule.dr 30 Mg PO BID Metformin Hcl 1,000 Mg Tablet 1 Tab PO BID Lisinopril-Hctz 20-12.5 Mg Tab (Lisinopril/Hydrochlorothiazide) 1 Each Tablet 1 Tab PO DAILY Norvasc (Amlodipine Besylate) 10 Mg Tablet 10 Mg PO DAILY Flomax (Tamsulosin Hcl) 0.4 Mg Cap.er.24h 1 Cap PO DAILY Januvia (Sitagliptin Phosphate) 100 Mg Tablet 1 Tab PO DAILY Vitals/I & O Vital Sign - Last 24 Hours 10/13/19 10/13/19 10/13/19 10/13/19 13:25 15:00 19:39 19:50 Temp 98.0 98.4 98.0 98.4 Pulse 81 78 Resp 16 16 23 B/P (MAP) 125/69 (87) 142/68 (92) Pulse Ox 93 96 O2 Delivery Room Air Room Air Room Air Room Air 10/13/19 10/14/19 10/14/1920 22:31 00:13 01:17 02:11 Temp 98.5 98.5 98.5 98.5 Pulse 78 82 Resp 22 16 22 B/P (MAP) 162/75 (104) 156/73 (100) Pulse Ox 98 98 O2 Delivery Room Air Room Air Room Air Room Air 10/14/19 10/14/19 10/14/19 10/14/19 07:00 08:00 09:19 11:22 Temp 98.7 98.3 98.7 98.3 Pulse 77 77 78 Resp 18 20 B/P (MAP) 151/84 (106) 151/84 129/67 (87) Pulse Ox 98 99 O2 Delivery Room Air Room Air Room Air Intake and Output 10/13/19 10/13/19 10/14/19 15:00 23:00 07:00 Intake Total 400 ml 300 ml Output Total 650 ml 825 ml Balance -650 ml 400 ml -525 ml SORIN FORD MD Oct 14, 2019 13:07
[2019-10-14 15:20] VITALS: BP 151/73
--- NOTE | 2019-10-14 18:17 | NUR ---
The social services designee (Joi) advised that the patient is accepted at [facility]. The Lupron injection is administered every three months at outpatient Urology appointment. The patient will not be given Lupron at [facility]. However, the patient is accepted. Awaiting discharge order.
[2019-10-14 19:00] VITALS: BP 149/71
[2019-10-14] MEDS: ENOXAPARIN 40 MG/0.4 ML SYRINGE. SQ SCH (21:26)
[2019-10-14] MEDS: INSULIN GLARGINE SYRINGE. SQ SCH (21:31)
[2019-10-14 23:00] VITALS: BP 131/77
[2019-10-15 03:00] VITALS: BP 136/71
[2019-10-15] MEDS: INSULIN LISPRO 300 UNITS/3 ML VIAL. SQ SCH ×2 (07:30→11:30)
--- NOTE | 2019-10-15 07:33 | PDOC ---
PROGRESS NOTES Chief Complaint Chief Complaint late entry note for 10/14/2019 A/P: Syncope - found down by EMS when arrived. He does not recall. seems to have been a vasovagal event Telemetry, echo, carotid doppler reviewed Acute encephalopathy - metabolic. could be post-ictal. Will monitor. No infectious signs Right ankle pain and swelling - X-ray r/o fracture. He cannot bear weight today. Definitely sprained. PT recs Dr Pastor recommendations greatly appreciated Weakness - could be post-ictal state. 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 EMS reported that patient family called 911 with complaint of syncope, however, no one else was present on arrival. Patient had urinated on himself and was confused. He notes he still feels confused and notes his right ankle hurts. He initially thinks he is in his living room, but is redirected. He is scattered with his history and keeps interrupting himself. He tells me his confusion is frustrating and notes he has had a few seizures and a stroke in the past and he feels similar to those times currently. He states he has stopped checking his blood sugar at home and misses some medications because he can't see and notes he can be compliant with meds and insulin when someone can help him with these things. Patient states his is in the hospital at [facility] and tells me he is worried that she was sick when in [place] recently. No family member presented to the emergency room. CT head shows generalized supratentorial atrophy. Labs significant for glucose of 306 and Cr 1.3. Carotid doppler - 1. Mild plaque the carotid bifurcations more on the left than on the right but without hemodynamically significant stenosis. 2. Antegrade flow in each vertebral. 10/11/2019 He is feeling better today, but unable to bear weight on his right ankle. No NVD. No CP or SOB. 10/12/2019 Patient with no new complaints. Continues to have ankle discomfort and he points that his edema, patient has been seen by Dr. Pastor at the present time no need for surgical intervention given the absence of fractures on the boot has been recommended by Dr. Garcia. He will need certainly placement at this point given that his chances of falling and readmission are quite high 10/13/2019 No new acute events reported overnight. Awaiting for placement, boot is not available just yet. We will follow-up with nursing staff regarding this matter. 10/14/2019 NO new complaints, stable from the medical stand point of view. laboratory data reassuring. Vitals Vitals Vital Signs Date Time Temp Pulse Resp B/P (MAP) Pulse Ox O2 Delivery O2 Flow Rate FiO2 10/15/19 03:00 98.4 77 18 136/71 (92) 97 Room Air 98.4 Physical Exam General: Alert Lungs: Clear Abdomen: Normal bowel sounds, Soft, No tenderness, No hepatosplenomegaly, No masses Extremities: Other (Edema noted to the right ankle and foot (midfoot and rearfoot). Faintly palpable DP pulses noted, bilateral feet. Non palpalpable PT pulses, bilateral feet.) Skin: No breakdown, Other (No open lesions noted. Xerosis noted. Nails are elongated, thickened, dystrophic, discolored with subungal debris noted, bilateral feet. No erythema noted.) Labs LABS Laboratory Tests Test 10/14/19 11:41 10/14/19 20:14 Glucose (Fingerstick) 137 mg/dL (70-99) 168 mg/dL (70-99) Assessment and Plan Assessmemt and Plan Problems Medical Problems: (1) Dementia Status: Acute (2) Legally blind Status: Acute (3) Syncope Status: Acute (4) Uncontrolled diabetes mellitus Status: Acute Comment Review of Relevant I have reviewed the following items maira (where applicable) has been applied. Labs Laboratory Tests Test 10/13/19 07:41 10/13/19 11:24 10/13/19 17:09 10/13/19 20:32 Glucose (Fingerstick) 86 mg/dL (70-99) 138 mg/dL (70-99) 151 mg/dL (70-99) 130 mg/dL (70-99) Test 10/14/19 07:21 10/14/19 11:41 10/14/19 20:14 Glucose (Fingerstick) 106 mg/dL (70-99) 137 mg/dL (70-99) 168 mg/dL (70-99) Laboratory Tests Test 10/14/19 11:41 10/14/19 20:14 Glucose (Fingerstick) 137 mg/dL (70-99) 168 mg/dL (70-99) Medications Current Medications Amlodipine Besylate (Norvasc) 10 mg DAILY PO Last administered on 10/14/19 09:19; Start 10/11/19 at 09:00 Duloxetine HCl (Cymbalta) 30 mg BID PO Last administered on 10/14/19 21:26; Start 10/10/19 at 21:00 Acetaminophen/ Hydrocodone Bitart (Lortab 5/325) 1 tab PRN Q4HRS PRN PO MILD PAIN 1-3 Last administered on 10/10/19at 20:36; Start 10/10/19 at 18:15; Stop 10/10/19 at 22:23; Status DC Levetiracetam (Keppra) 500 mg BID PO Last administered on 10/14/19 21:26; Start 10/10/19 at 21:00 Tamsulosin HCl (Flomax) 0.4 mg DAILY PO Last administered on 10/14/19 09:19; Start 10/11/19 at 09:00 Linagliptin (Tradjenta) 5 mg DAILY PO Last administered on 10/14/19 09:19; Start 10/11/19 at 09:00 Insulin Glargine (Lantus Syringe) 8 unit QHS SQ Last administered on 10/14/19 21:31; Start 10/10/19 at 21:00 Insulin Human Lispro (HumaLOG) 0-5 UNITS TIDACHC SQ Last administered on 10/13/19at 17:40; Start 10/10/19 at 21:00 Dextrose (Dextrose 50%-Water Syringe) 12.5 gm PRN Q15MIN PRN IV SEE COMMENTS; Start 10/10/19 at 18:15 Enoxaparin Sodium (Lovenox 30mg Syringe) 30 mg Q24H SQ Last administered on 10/11/19at 21:28; Start 10/10/19 at 21:00; Stop 10/12/19 at 13:22; Status DC Ondansetron HCl (Zofran) 4 mg PRN Q4HRS PRN IV NAUSEA/VOMITING; Start 10/10/19 at 20:00 Acetaminophen (Tylenol) 650 mg PRN Q6HRS PRN PO TEMP OVER 100.4F OR MILD PAIN Last administered on 10/15/19at 05:32; Start 10/10/19 at 20:00 Acetaminophen/ Hydrocodone Bitart (Lortab 5/325) 2 tab PRN Q4HRS PRN PO MODERATE- SEVERE PAIN Last administered on 10/14/19at 00:13; Start 10/10/19 at 22:30 Enoxaparin Sodium (Lovenox 40mg Syringe) 40 mg Q24H SQ Last administered on 10/14/19at 21:26; Start 10/12/19 at 21:00 Active Scripts Active Pyridium (Phenazopyridine Hcl) 200 Mg Tablet 200 Mg PO TID Cipro (Ciprofloxacin Hcl) 500 Mg Tablet 1 Tab PO BID Hydrocodone-Apap 5-325 (Hydrocodone Bit/Acetaminophen) 1 Each Tablet 1 Tab PO PRN Q4HRS PRN Flomax (Tamsulosin Hcl) 0.4 Mg Cap.er.24h 1 Cap PO DAILY Reported Keppra (Levetiracetam) 500 Mg Tablet 1 Tab PO BID Duloxetine Hcl 30 Mg Capsule.dr 30 Mg PO BID Metformin Hcl 1,000 Mg Tablet 1 Tab PO BID Lisinopril-Hctz 20-12.5 Mg Tab (Lisinopril/Hydrochlorothiazide) 1 Each Tablet 1 Tab PO DAILY Norvasc (Amlodipine Besylate) 10 Mg Tablet 10 Mg PO DAILY Flomax (Tamsulosin Hcl) 0.4 Mg Cap.er.24h 1 Cap PO DAILY Januvia (Sitagliptin Phosphate) 100 Mg Tablet 1 Tab PO DAILY Vitals/I & O Vital Sign - Last 24 Hours 10/14/19 10/14/19 10/14/19 10/14/19 08:00 09:19 11:22 15:20 Temp 98.3 99.4 98.3 99.4 Pulse 77 78 75 Resp 20 20 B/P (MAP) 151/84 129/67 (87) 151/73 (99) Pulse Ox 99 98 O2 Delivery Room Air Room Air Room Air 10/14/19 10/14/19 10/14/19 10/15/19 19:00 20:00 23:00 03:00 Temp 98.5 98.3 98.4 98.5 98.3 98.4 Pulse 99 79 77 Resp 18 18 18 B/P (MAP) 149/71 (97) 131/77 (95) 136/71 (92) Pulse Ox 99 98 97 O2 Delivery Room Air Room Air Room Air Room Air Intake and Output 10/14/19 10/14/19 10/15/19 15:00 23:00 07:00 Intake Total 480 ml 240 ml Output Total 700 ml 700 ml Balance -220 ml -460 ml ADRIANO GLEZ MD Oct 15, 2019 07:33
[2019-10-15 08:00] VITALS: BP 156/89
--- NOTE | 2019-10-15 08:34 | SNU/HH DC ---
DISCHARGE ORDERS DISCHARGE INFORMATION: DISCHARGE DATE: Oct 15, 2019 FINAL DIAGNOSIS Problems Medical Problems: (1) Dementia Status: Acute (2) Legally blind Status: Acute (3) Syncope Status: Acute (4) Uncontrolled diabetes mellitus Status: Acute CONDITION ON DISCHARGE: Stable CODE STATUS: Code Status: Full [facility]: SNF STAY <30 DAYS: Yes POST DISCHARGE ORDERS: ACTIVITY ORDERS: Activity as tolerated WEIGHT BEARING STATUS: As tolerated CHECKS AFTER DISCHARGE: CHECKS AFTER DISCHARGE: Check blood press - daily, Check blood sugar, ac/hs, Weigh Yourself Daily DISCHARGE MEDICATIONS: Home Meds Active Scripts Hydrocodone Bit/Acetaminophen (HYDROCODONE-APAP 5-325 ) 1 Each Tablet, 1 TAB PO PRN Q4HRS PRN for MILD PAIN, #14 TAB 0 Refills Prov:TIARRA SINGH MD 10/02/16 Tamsulosin Hcl (FLOMAX) 0.4 Mg Cap.er.24h, 1 CAP PO DAILY for enlarged prostate, #30 CAP 11 Refills Prov:MALCOLM SMITH DO 09/30/16 Reported Medications Levetiracetam (KEPPRA) 500 Mg Tablet, 1 TAB PO BID, #180 TAB 3 Refills 03/22/16 Duloxetine Hcl (DULOXETINE HCL) 30 Mg Capsule.dr, 30 MG PO BID, CAP 03/22/16 Metformin Hcl (METFORMIN HCL) 1,000 Mg Tablet, 1 TAB PO BID, #60 TAB 5 Refills 03/22/16 Lisinopril/Hydrochlorothiazide (LISINOPRIL-HCTZ 20-12.5 MG TAB) 1 Each Tablet, 1 TAB PO DAILY, #30 TAB 5 Refills 03/22/16 Amlodipine Besylate (NORVASC) 10 Mg Tablet, 10 MG PO DAILY, TAB 03/22/16 Tamsulosin Hcl (FLOMAX) 0.4 Mg Cap.er.24h, 1 CAP PO DAILY, #30 CAP 11 Refills 03/22/16 Sitagliptin Phosphate (JANUVIA) 100 Mg Tablet, 1 TAB PO DAILY, #30 TAB 5 Refills 03/22/16 Discontinued Scripts Phenazopyridine Hcl (PYRIDIUM) 200 Mg Tablet, 200 MG PO TID, #6 TAB Prov:RAMA IDCKSON MD 03/26/17 Ciprofloxacin Hcl (CIPRO) 500 Mg Tablet, 1 TAB PO BID, #14 TAB Prov:RAMA DICKSON MD 03/26/17 ADRIANO GLEZ MD Oct 15, 2019 08:34
[2019-10-15] MEDS: HYDROcodone/APAP 5/325MG 1 TAB TABLET PO PRN (09:51)
[2019-10-15] MEDS: levETIRAcetam 500 MG TABLET PO SCH (09:51)
[2019-10-15] MEDS: TAMSULOSIN 0.4 MG CAP.ER.24H. PO SCH (09:51)
[2019-10-15] MEDS: LINAGLIPTIN 5 MG TABLET PO SCH (09:52)
[2019-10-15] MEDS: amLODIPine BESYLATE 10 MG TABLET PO SCH (09:52)
[2019-10-15] MEDS: DULoxetine HCL 30 MG CAPSULE.DR PO SCH (09:52)
--- NOTE | 2019-10-15 10:29 | NUR ---
SS following up with discharge planning. Discharge orders received for [facility], ; fax [phone]. Discharge orders phoned and faxed. Pt will discharge today and go to [facility] at 1245 via [facility], [id number]. Pt, pt's family, and pt's RN notified.
--- NOTE | 2019-10-15 10:31 | PDOC ---
PROGRESS NOTES Subjective Subjective No new complaints. Objective Objective Vital Signs Date Time Temp Pulse Resp B/P (MAP) Pulse Ox O2 Delivery O2 Flow Rate FiO2 10/15/19 09:52 79 156/89 10/15/19 08:00 97.9 18 98 Room Air 97.9 10/12/19 07:00 Intake and Output 10/15/19 07:00 Intake Total 720 ml Output Total 1400 ml Balance -680 ml Intake Oral 720 ml Output Urine Total 1400 ml # Voids 8 Physical Exam Physical Exam He is supine in bed and seems comfortable and he is walking with cam walker boot to his right ankle,under supervision. Assessment Assessment Problems Medical Problems: (1) Dementia Status: Acute (2) Legally blind Status: Acute (3) Syncope Status: Acute (4) Uncontrolled diabetes mellitus Status: Acute Plan Plan of Care To SNF when medically stable. Comment Review of Relevant I have reviewed the following items maira (where applicable) has been applied. Labs Laboratory Tests Test 10/13/19 11:24 10/13/19 17:09 10/13/19 20:32 10/14/19 07:21 Glucose (Fingerstick) 138 mg/dL (70-99) 151 mg/dL (70-99) 130 mg/dL (70-99) 106 mg/dL (70-99) Test 10/14/19 11:41 10/14/19 20:14 10/15/19 07:35 Glucose (Fingerstick) 137 mg/dL (70-99) 168 mg/dL (70-99) 109 mg/dL (70-99) Laboratory Tests Test 10/14/19 11:41 10/14/19 20:14 10/15/19 07:35 Glucose (Fingerstick) 137 mg/dL (70-99) 168 mg/dL (70-99) 109 mg/dL (70-99) Medications Current Medications Amlodipine Besylate (Norvasc) 10 mg DAILY PO Last administered on 10/15/19at 09:52; Start 10/11/19 at 09:00 Duloxetine HCl (Cymbalta) 30 mg BID PO Last administered on 10/15/19at 09:52; Start 10/10/19 at 21:00 Acetaminophen/ Hydrocodone Bitart (Lortab 5/325) 1 tab PRN Q4HRS PRN PO MILD PAIN 1-3 Last administered on 10/10/19 20:36; Start 10/10/19 at 18:15; Stop 10/10/19 at 22:23; Status DC Levetiracetam (Keppra) 500 mg BID PO Last administered on 10/15/19 09:51; Start 10/10/19 at 21:00 Tamsulosin HCl (Flomax) 0.4 mg DAILY PO Last administered on 10/15/19 09:51; Start 10/11/19 at 09:00 Linagliptin (Tradjenta) 5 mg DAILY PO Last administered on 10/15/19 09:52; Start 10/11/19 at 09:00 Insulin Glargine (Lantus Syringe) 8 unit QHS SQ Last administered on 10/14/19 21:31; Start 10/10/19 at 21:00 Insulin Human Lispro (HumaLOG) 0-5 UNITS TIDACHC SQ Last administered on 10/13/19 17:40; Start 10/10/19 at 21:00 Dextrose (Dextrose 50%-Water Syringe) 12.5 gm PRN Q15MIN PRN IV SEE COMMENTS; Start 10/10/19 at 18:15 Enoxaparin Sodium (Lovenox 30mg Syringe) 30 mg Q24H SQ Last administered on 10/11/19 21:28; Start 10/10/19 at 21:00; Stop 10/12/19 at 13:22; Status DC Ondansetron HCl (Zofran) 4 mg PRN Q4HRS PRN IV NAUSEA/VOMITING; Start 10/10/19 at 20:00 Acetaminophen (Tylenol) 650 mg PRN Q6HRS PRN PO TEMP OVER 100.4F OR MILD PAIN Last administered on 10/15/19 05:32; Start 10/10/19 at 20:00 Acetaminophen/ Hydrocodone Bitart (Lortab 5/325) 2 tab PRN Q4HRS PRN PO MODERATE- SEVERE PAIN Last administered on 10/15/19 09:51; Start 10/10/19 at 22:30 Enoxaparin Sodium (Lovenox 40mg Syringe) 40 mg Q24H SQ Last administered on 10/14/19 21:26; Start 10/12/19 at 21:00 Active Scripts Active Hydrocodone-Apap 5-325 (Hydrocodone Bit/Acetaminophen) 1 Each Tablet 1 Tab PO PRN Q4HRS PRN Flomax (Tamsulosin Hcl) 0.4 Mg Cap.er.24h 1 Cap PO DAILY Reported Keppra (Levetiracetam) 500 Mg Tablet 1 Tab PO BID Duloxetine Hcl 30 Mg Capsule.dr 30 Mg PO BID Metformin Hcl 1,000 Mg Tablet 1 Tab PO BID Lisinopril-Hctz 20-12.5 Mg Tab (Lisinopril/Hydrochlorothiazide) 1 Each Tablet 1 Tab PO DAILY Norvasc (Amlodipine Besylate) 10 Mg Tablet 10 Mg PO DAILY Flomax (Tamsulosin Hcl) 0.4 Mg Cap.er.24h 1 Cap PO DAILY Januvia (Sitagliptin Phosphate) 100 Mg Tablet 1 Tab PO DAILY Vitals/I & O Vital Sign - Last 24 Hours 10/14/19 10/14/19 10/14/19 10/14/19 11:22 15:20 19:00 20:00 Temp 98.3 99.4 98.5 98.3 99.4 98.5 Pulse 78 75 99 Resp 18 B/P (MAP) 129/67 (87) 151/73 (99) 149/71 (97) Pulse Ox 99 98 99 O2 Delivery Room Air Room Air Room Air Room Air 10/14/19 10/15/19 10/15/19 10/15/19 23:00 03:00 08:00 09:52 Temp 98.3 98.4 97.9 98.3 98.4 97.9 Pulse 79 77 79 79 Resp 18 18 B/P (MAP) 131/77 (95) 136/71 (92) 156/89 (111) 156/89 Pulse Ox 98 97 98 O2 Delivery Room Air Room Air Room Air Intake and Output 10/14/19 10/14/19 10/15/19 15:00 23:00 07:00 Intake Total 480 ml 240 ml Output Total 700 ml 700 ml Balance -220 ml -460 ml SORIN FORD MD Oct 15, 2019 10:31
--- NOTE | 2019-10-15 10:48 | NUR ---
SS following up with discharge planning. Pt's spouse reported that she just recently got out of the hospital and was wanting DPOA information for Medical for pt. Pt's spouse requested that SS leave DPOA information for Medical in pt's room. SS left information in pt's room. Pt's RN notified.
[2019-10-15 11:00] VITALS: BP 107/66
--- NOTE | 2019-10-15 11:26 | PDOC3 ---
Discharge Summary Visit Information Date of Admission: Oct 10, 2019 Date of Discharge: Oct 15, 2019 Admitting Diagnosis Comment: Syncope - Acute encephalopathy - metabolic. Right ankle pain and swelling - Weakness - Hypertension - Diabetes mellitus - with hyperglycemia, H/o CVA - H/o prostate cancer - Dementia - H/o seizures - Final Diagnosis Syncope - resolved no recurrence Acute encephalopathy - metabolic. Right ankle pain and swelling - sprain, recommendations from Dr. Arceo appreciated Weakness -stable Hypertension -s Diabetes mellitus -better controlled H/o CVA - H/o prostate cancer - he states he is getting quarterly injections for this, likely lupron treatment Dementia - per charting, likely vascular from prior CVA H/o seizures -asymptomatic Brief Hospital Course Allergies Allergies Coded Allergies Type Severity Reaction Last Updated Verified No Known Drug Allergies 02/12/14 No Vital Signs Vital Signs Date Time Temp Pulse Resp B/P (MAP) Pulse Ox O2 Delivery O2 Flow Rate FiO2 10/15/19 11:00 98.7 83 18 107/66 (80) 96 Room Air 98.7 Lab Results Laboratory Tests Test 10/13/19 11:24 10/13/19 17:09 10/13/19 20:32 10/14/19 07:21 Glucose (Fingerstick) 138 mg/dL (70-99) 151 mg/dL (70-99) 130 mg/dL (70-99) 106 mg/dL (70-99) Test 10/14/19 11:41 10/14/19 20:14 10/15/19 07:35 Glucose (Fingerstick) 137 mg/dL (70-99) 168 mg/dL (70-99) 109 mg/dL (70-99) Laboratory Tests Test 10/14/19 11:41 10/14/19 20:14 10/15/19 07:35 Glucose (Fingerstick) 137 mg/dL (70-99) 168 mg/dL (70-99) 109 mg/dL (70-99) Brief Hospital Course History of Present Illness Mr Ponce is a 84 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 EMS reported that patient family called 911 with complaint of syncope, however, no one else was present on arrival. Patient had urinated on himself and was confused. He notes he still feels confused and notes his right ankle hurts. He initially thinks he is in his living room, but is redirected. He is scattered with his history and keeps interrupting himself. He tells me his confusion is frustrating and notes he has had a few seizures and a stroke in the past and he feels similar to those times currently. He states he has stopped checking his blood sugar at home and misses some medications because he can't see and notes he can be compliant with meds and insulin when someone can help him with these things. Patient states his is in the hospital at [facility] and tells me he is worried that she was sick when in [place] recently. No family member presen parminder to the emergency room. CT head shows generalized supratentorial atrophy. Labs significant for glucose of 306 and Cr 1.3. Carotid doppler - 1. Mild plaque the carotid bifurcations more on the left than on the right but without hemodynamically significant stenosis. 2. Antegrade flow in each vertebral. 10/11/2019 He is feeling better today, but unable to bear weight on his right ankle. No NVD. No CP or SOB. 10/12/2019 Patient with no new complaints. Continues to have ankle discomfort and he point s that his edema, patient has been seen by Dr. Pastor at the present time no need for surgical intervention given the absence of fractures on the boot has been recommended by Dr. Garcia. He will need certainly placement at this point given that his chances of falling and readmission are quite high 10/13/2019 No new acute events reported overnight. Awaiting for placement, boot is not available just yet. We will follow-up with nursing staff regarding this matter. 10/14/2019 NO new complaints, stable from the medical stand point of view. laboratory data reassuring. Patient in no acute distress on the day of discharge. The patient will be transitioned to a halfway facility since he lives by himself. He will need a lot of support given his injury to the ankle that he seems to be navigating well with the [place] boot. Pain is well controlled glycemia was better and she was in hemodynamically stable condition to be dismissed today Discharge Information Condition at Discharge: Improved Follow Up: Weeks Disposition/Orders: D/C to Another Facility Scheduled Amlodipine Besylate (Norvasc) 10 Mg Tablet, 10 MG PO DAILY, (Reported) Entered as Reported by: GUILLAUME RILEY on 03/22/161830 Last Action: Continued on 10/10/191809 by NAVDEEP LIANG MD Duloxetine Hcl (Duloxetine Hcl) 30 Mg Capsule.dr, 30 MG PO BID, (Reported) Entered as Reported by: GUILLAUME RILEY on 03/22/161830 Last Action: Continued on 10/10/191809 by NAVDEEP LIANG MD Levetiracetam (Keppra) 500 Mg Tablet, 1 TAB PO BID, #180 Ref 3 (Reported) Entered as Reported by: GUILLAUME RILEY on 03/22/161830 Last Action: Continued on 10/10/191809 by NAVDEEP LIANG MD Lisinopril/Hydrochlorothiazide (Lisinopril-Hctz 20-12.5 Mg Tab) 1 Each Tablet, 1 TAB PO DAILY, #30 Ref 5 (Reported) Entered as Reported by: GUILLAUME RILEY on 03/22/161830 Metformin Hcl (Metformin Hcl) 1,000 Mg Tablet, 1 TAB PO BID, #60 Ref 5 (Repo rted) Entered as Reported by: GUILLAUME RILEY on 03/22/161830 Sitagliptin Phosphate (Januvia) 100 Mg Tablet, 1 TAB PO DAILY, #30 Ref 5 (Reported) Entered as Reported by: GUILLAUME RILEY on 03/22/161830 Last Action: Converted on 10/10/191809 by NAVDEEP LIANG MD Tamsulosin Hcl (Flomax) 0.4 Mg Cap.er.24h, 1 CAP PO DAILY, #30 Ref 11 (Reported) Entered as Reported by: GUILLAUME RILEY on 03/22/161830 Tamsulosin Hcl (Flomax) 0.4 Mg Cap.er.24h, 1 CAP PO DAILY for enlarged prostate, #30 Ref 11 Prescribed by: MALCOLM SMITH DMohsen on 09/30/161706 Last Action: Continued on 10/10/191809 by NAVDEEP LIANG MD Scheduled PRN Hydrocodone Bit/Acetaminophen (Hydrocodone-Apap 5-325 ) 1 Each Tablet, 1 TAB PO PRN Q4HRS PRN for MILD PAIN, #14 Ref 0 Prescribed by: TIARRA SINGH MD on 10/02/16 105 Last Action: Continued on 10/10/191809 by NAVDEEP LIANG MD Discontinued Medications Ciprofloxacin Hcl (Cipro) 500 Mg Tablet, 1 TAB PO BID, #14 Prescribed by: RAMA DICKSON on 03/26/171741 Phenazopyridine Hcl (Pyridium) 200 Mg Tablet, 200 MG PO TID, #6 Prescribed by: RAMA DICKSON on 03/26/171741 ADRIANO GLEZ MD Oct 15, 2019 11:26
--- NOTE | 2019-10-15 14:22 | NUR ---
Discharge Note: GABI WALKER [address] Discharge instructions and discharge home medications reviewed with Other facility and a copy given. All questions have been answered and understanding verbalized. The following instructions and handouts were given: discharged instructions were faxed and sent with transport. The patient report was received by JASON Villarreal at [facility] at approximately 1209 hours. Discontinued lines and drains: catheter tip was intact. The patient tolerated well. Patient discharged to [facility] via transport team.
== END 2019-10-15 12:55 | disposition home or self-care (01) | DRG 71 ==
LOC: ER 15:07 → 6 SOUTH 18:08 → OBSVTOIN 10-11 16:32 → 6 SOUTH 10-14 11:28
PROVIDERS: ADMIT Internal Medicine; ATTEND Internal Medicine
PROC: 0HBRXZZ Excision of Toe Nail, External Approach (ICD-10-PCS; principal; 2019-10-13)
PROC: 0HBRXZZ Excision of Toe Nail, External Approach (ICD-10-PCS; 2019-10-13)
PROC: 0HBRXZZ Excision of Toe Nail, External Approach (ICD-10-PCS; 2019-10-13)
PROC: 0HBRXZZ Excision of Toe Nail, External Approach (ICD-10-PCS; 2019-10-13)
PROC: 0HBRXZZ Excision of Toe Nail, External Approach (ICD-10-PCS; 2019-10-13)
PROC: 0HBRXZZ Excision of Toe Nail, External Approach (ICD-10-PCS; 2019-10-13)
PROC: 0HBRXZZ Excision of Toe Nail, External Approach (ICD-10-PCS; 2019-10-13)
PROC: 0HBRXZZ Excision of Toe Nail, External Approach (ICD-10-PCS; 2019-10-13)
PROC: 0HBRXZZ Excision of Toe Nail, External Approach (ICD-10-PCS; 2019-10-13)
PROC: 0HBRXZZ Excision of Toe Nail, External Approach (ICD-10-PCS; 2019-10-13)
DX: G93.41 Metabolic encephalopathy (principal); E44.1 Mild protein-calorie malnutrition; E11.65 Type 2 diabetes mellitus with hyperglycemia; R55 Syncope and collapse; G40.909 Epilepsy, unspecified, not intractable, without status epilepticus; Z68.23 Body mass index [BMI] 23.0-23.9, adult; E11.42 Type 2 diabetes mellitus with diabetic polyneuropathy; E11.51 Type 2 diabetes mellitus with diabetic peripheral angiopathy without gangrene; F03.90 Unspecified dementia, unspecified severity, without behavioral disturbance, psychotic disturbance, mood disturbance, and anxiety; H54.8 Legal blindness, as defined in USA; S93.401A Sprain of unspecified ligament of right ankle, initial encounter; B35.1 Tinea unguium; I10 Essential (primary) hypertension; Z85.46 Personal history of malignant neoplasm of prostate; Z86.73 Personal history of transient ischemic attack (TIA), and cerebral infarction without residual deficits; M19.90 Unspecified osteoarthritis, unspecified site; X58.XXXA Exposure to other specified factors, initial encounter; Y93.89 Activity, other specified; Y92.89 Other specified places as the place of occurrence of the external cause; Y99.8 Other external cause status
CPT/HCPCS: 36415; 70450; 71045; 73610; 73620; 80048; 80053; 81001; 82962; 83735; 83880; 84484; 85025; 93005; 93306; 93880; 99285; G0378; G0379; J1650; J1815; 97110; 97116; 97530; 97535

== ENCOUNTER 2021-04-15 13:25 | Emergency (ER) | payer MEDICARE, BC ==
[~2021-04-15] VITALS: Ht 180.3 cm; Wt 80.0 kg
[~2021-04-15 13:25] MED LIST changes: -LISI1TAB19 PO; +LISI1TAB37 PO
--- NOTE | 2021-04-15 14:00 | PHYS DOC ---
Past Medical History Past Medical History: Cancer, CVA, Dementia, Diabetes-Type II, Hypertension, Seizure Additional Past Medical Histor: legally blind, PROSTATE CANCER Past Surgical History: Other Additional Past Surgical Histo: bladder sx Smoking Status: Never Smoker Alcohol Use: None Drug Use: None General Adult EDM: Chief Complaint: MECHANICAL FALL HPI: HPI: Patient is a 85 year old male with history of CVA, HTN, DM, legally blind who presents with a fall. States that he thinks he missed a step and fell and hit his head. Complains of mild headache and neck pain. He has been noted to have repetitive questioning for nursing staff. He is unsure if he lost consciousness. Denies blood thinner use. Denies any other pain following his fall. Denies any chest pain, shortness of breath, palpitations. Review of Systems: Review of Systems: Constitutional: Denies fever or chills. [] Eyes: Denies change in visual acuity. [] HENT: Reports neck pain. Denies nasal congestion or sore throat. [] Respiratory: Denies cough or shortness of breath. [] Cardiovascular: Denies chest pain or edema. [] GI: Denies abdominal pain, nausea, vomiting, bloody stools or diarrhea. [] : Denies dysuria. [] Musculoskeletal: Denies back pain or joint pain. [] Integument: Denies rash. [] Neurologic: Reports mild headache., focal weakness or sensory changes. [] Endocrine: Denies polyuria or polydipsia. [] Lymphatic: Denies swollen glands. [] Psychiatric: Denies depression or anxiety. [] Heart Score: C/O Chest Pain: No Risk Factors: Risk Factors: DM, Current or recent (<one month) smoker, HTN, HLP, family history of CAD, obesity. Risk Scores: Score 0 - 3: 2.5% MACE over next 6 weeks - Discharge Home Score 4 - 6: 20.3% MACE over next 6 weeks - Admit for Clinical Observation Score 7 - 10: 72.7% MACE over next 6 weeks - Early Invasive Strategies Allergies: Allergies: Allergies Coded Allergies Type Severity Reaction Last Updated Verified No Known Drug Allergies 02/12/14 No Physical Exam: PE: Constitutional: Well developed, well nourished, no acute distress, non-toxic appearance. [] HENT: Abrasion on the top of his head. No lacerations. No facial trauma evident. [] Eyes: PERRLA, EOMI, conjunctiva normal, no discharge. [] Neck: Reports midline tenderness to palpation of the C-spine. C-collar placed. [] Cardiovascular:Heart rate regular rhythm, no murmur [] Lungs & Thorax: Bilateral breath sounds clear to auscultation, no chest wall tenderness to palpation. [] Abdomen: Bowel sounds normal, soft, no tenderness, no masses, no pulsatile masses. Pelvis stable and nontender. [] Skin: Warm, dry, no erythema, no rash. [] Back: No tenderness, no CVA tenderness. [] Extremities: No extremity tenderness. Normal active and passive range of motion. No tenderness, no cyanosis, no clubbing, ROM intact, no edema. [] Neurologic: Alert and oriented X 3, blind (chronic). Normal motor function, normal sensory function, no focal deficits noted. [] Psychologic: Affect normal, judgement normal, mood normal. [] EKG: EKG: Sinus rhythm. Rate 68. Left axis deviation. Premature atrial complex. No acute ischemic changes. [] Radiology/Procedures: Radiology/Procedures: [facility] [address] [place], [place] [id number] IMAGING REPORT Signed PATIENT: GABI WALKER ACCOUNT: [id number] : 1935 LOCATION: ER AGE: 85 SEX: M EXAM STATUS: REG ER ORD. PHYSICIAN: EJ MCGHEE MD REASON: fall, head trauma, neck pain PROCEDURE: CT HEAD AND CERVICAL SPINE WO CT HEAD AND C-SPINE WO dated 04/15/2021 2:16 PM Indication:Reason: fall, head trauma, neck pain / Spl. Instructions: / History: Comparison: CT head 10/20/2019. Technique: Noncontrast images were performed. Sagittal and coronal reconstructions of the cervical spine were obtained. One or more of the following individualized dose reduction techniques were utilized for this examination: 1. Automated exposure control 2. Adjustment of the mA and/or kV according to patient size 3. Use of iterative reconstruction technique Findings: CT head: There is probably subtle motion artifact. There is no evidence of intracranial hemorrhage or abnormal extra-axial fluid collection. No new area of abnormal density is seen in the brain. The ventricles and basilar cisterns are normally positioned. Bone windows show no fracture of the skull. CT cervical spine: Alignment is normal. There is no loss of vertebral body height or prevertebral soft tissue swelling. No fracture line is seen. Intervertebral discs are not narrowed. There is no apparent destructive process. There are a few mildly prominent cervical lymph nodes, most evident on the right. These are presumably reactive. IMPRESSION: CT head: No acute abnormality. CT cervical spine: No acute abnormality. Electronically signed by: Karsten Plunkett Jr., MD (04/15/2021 2:37 PM) [id number] DICTATED and SIGNED BY: KARSTEN PLUNKETT Jr, MD DATE: 04/15/21 [id number] [] Course & Med Decision Making: Course & Med Decision Making Pertinent Labs and Imaging studies reviewed. (See chart for details) Patient 85-year-old male who presents with what sounds like a mechanical fall, after he "missed a step". Unclear on LOC. Is hemodynamically stable on arrival. Neurologically intact, but has some repetitive questioning. Primary/secondary survey pertinent only for a forehead abrasion and midline C- spine tenderness to palpation. C-collar was placed in the ED. CT head, neck ordered. Due to repetitive questioning, trauma alert was paged out by nursing staff. 1400 CT head and neck were negative. He has been at his neurologic baseline. Labs were reassuring. Patient has multiple family members that are staying at home with him that can help him tonight if needed. Feel he safe for discharge at this time. [address] Disclaimer: [place] Disclaimer: This electronic medical record was generated, in whole or in part, using a voice recognition dictation system. Departure Departure Impression: Primary Impression: Minor head trauma Disposition: HOME / SELF CARE / HOMELESS Condition: STABLE Referrals: MARIA DEL CARMEN NICHOLAS MD (PCP) Schedule appoint with your PCP for early next week. Additional Instructions: Your CT scan, labs, and EKG were all reassuring. There were no serious injuries found on your work-up today. For aches and pains you can take Tylenol and ibuprofen [id number]. If you feel you are unsafe caring for yourself at home you can return to the emergency department at any time. EJ MCGHEE MD Apr 15, 2021 14:00
[2021-04-15 14:07] LABS: BASO % 1 % (0-3); EOS % 0 % (0-3); HEMATOCRIT 36.4 % (39.0-53.0); LYMPH # 1.8 x10^3/uL (1.0-4.8); LYMPH % 20 % (24-48); MEAN CORPUSCULAR HEMOGLOBIN 28 pg (25-35); MEAN CORPUSCULAR HGB CONC 33 g/dL (31-37); MEAN CORPUSCULAR VOLUME 84 fL (79-100); MONO # 0.6 x10^3/uL (0.0-1.1); MONO % 7 % (0-9); NEUT # 6.2 x10^3/uL (1.8-7.7); NEUT % 72 % (31-73); PLATELET COUNT 292 x10^3/uL (140-400); RED BLOOD COUNT 4.32 x10^6/uL (4.30-5.70); RED CELL DISTRIBUTION WIDTH 14.5 % (11.5-14.5); WHITE BLOOD COUNT 8.7 x10^3/uL (4.0-11.0)
[2021-04-15 14:13] LABS: CALCIUM 9.5 mg/dL (8.5-10.1); CREATININE 1.4 mg/dL (0.7-1.3); GFR 58.1; POTASSIUM 4.1 mmol/L (3.5-5.1)
--- NOTE | 2021-04-15 14:40 | RAD ---
CT HEAD AND C-SPINE WO dated 04/15/2021 2:16 PM Indication:Reason: fall, head trauma, neck pain / Spl. Instructions: / History: Comparison: CT head 10/20/2019. Technique: Noncontrast images were performed. Sagittal and coronal reconstructions of the cervical sp ine were obtained. One or more of the following individualized dose reduction techniques were utilized for this examinat ion: 1. Automated exposure control 2. Adjustment of the mA and/or kV according to patient size 3. Use of iterative reconstruction technique Findings: CT head: There is probably subtle motion artifact. There is no evidence of intracranial hemorrhage or abnormal extra-axial fluid collection. No new area of abnormal density is seen in the brain. The faviola tricles and basilar cisterns are normally positioned. Bone windows show no fracture of the skull. CT cervical spine: Alignment is normal. There is no loss of vertebral body height or prevertebral sof t tissue swelling. No fracture line is seen. Intervertebral discs are not narrowed. There is no appar ent destructive process. There are a few mildly prominent cervical lymph nodes, most evident on the r ight. These are presumably reactive. IMPRESSION: CT head: No acute abnormality. CT cervical spine: No acute abnormality. Electronically signed by: Bg Plunkett Jr., MD (04/15/2021 2:37 PM) [id number]
[2021-04-15 15:09] VITALS: BP 169/77
--- NOTE | 2021-04-15 15:48 | EKG ---
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
== END 2021-04-15 18:19 | disposition home or self-care (01) ==
LOC: ER 13:25
DX: S09.90XA Unspecified injury of head, initial encounter (principal); M54.2 Cervicalgia; E11.9 Type 2 diabetes mellitus without complications; I10 Essential (primary) hypertension; F03.90 Unspecified dementia, unspecified severity, without behavioral disturbance, psychotic disturbance, mood disturbance, and anxiety; Z86.73 Personal history of transient ischemic attack (TIA), and cerebral infarction without residual deficits; W10.8XXA Fall (on) (from) other stairs and steps, initial encounter; Y93.89 Activity, other specified; Y92.89 Other specified places as the place of occurrence of the external cause; Y99.8 Other external cause status
CPT/HCPCS: 36415; 70450; 72125; 80048; 85025; 93005; 99285-25